=== PATIENT | female | born 1940 | race Caucasian/White ===

== ENCOUNTER 2016-12-08 14:36 | Emergency (ER) | payer MEDICARE ==
--- NOTE | 2016-12-08 14:47 | ER Document Report ---
ED Medical Screen (RME) - General Stated Complaint: STIFF NECK Notes: patient has a history or RA with intermittent episodes of neck pain she has had this exacerbation for 5 days no fever. I greeted and performed a rapid initial assessment of this patient. Comprehensive ED assessment and evaluation of the patient, analysis of test results and completion of the medical decision making process will be conducted by additional ED providers. TRAVEL OUTSIDE OF THE [place] IN LAST 30 DAYS: No - Related Data Allergies/Adverse Reactions: Penicillins Allergy (Intermediate, Verified 11/05/12 06:55) vancomycin [Vancomycin] Allergy (Intermediate, Verified 11/05/12 06:56) vancomycin HCl [From Vancocin] Allergy (Intermediate, Verified 11/05/12 06:56) Past Medical History - Past Medical History Cardiac Medical History: Reports: Hx Hypertension Denies: Hx Coronary Artery Disease, Hx Heart Attack Pulmonary Medical History: Reports: Hx Pneumonia - currently dx Denies: Hx Asthma, Hx Bronchitis, Hx COPD Neurological Medical History: Denies: Hx Cerebrovascular Accident, Hx Seizures Musculoskeltal Medical History: Reports Hx Arthritis - mild throughout Past Surgical History: Denies: Hx Hysterectomy, Hx Pacemaker - Immunizations Hx Diphtheria, Pertussis, Tetanus Vaccination: Yes Physical Exam - Vital signs Vitals: Temp Pulse Resp BP Pulse Ox 98.3 F 88 20 149/73 H 97 12/08/16 14:44 12/08/16 14:44 12/08/16 14:44 12/08/16 14:44 12/08/16 14:44 Course - Vital Signs Vital signs: Temp Pulse Resp BP Pulse Ox 98.3 F 88 20 149/73 H 97 12/08/16 14:44 12/08/16 14:44 12/08/16 14:44 12/08/16 14:44 12/08/16 14:44
[2016-12-08] MEDS ORDERED: KETOROLAC TROMETHAMINE 60 MG/2 ML SDV IM ONE (15:27)
--- NOTE | 2016-12-08 15:33 | ER Document Report ---
ED General - General Chief Complaint: Stiff Neck Stated Complaint: STIFF NECK Time seen by provider: 15:27 Mode of Arrival: Ambulatory Information source: Patient Notes: This is a 76-year-old female with a history of hypertension, hypothyroidism, reactive airway disease, lung cancer (on chemotherapy, in remission). Patient does have a history of osteoporosis as well as chronic neck and back pain and has had surgery on her lower back. Patient presents to the emergency room with upper neck pain and spasm. The patient has been seen by an orthopedic surgeon for this in the past and has recently had physical therapy this past fall. She states the pain and spasm has increased in the last few days. She denies any recent injury. She denies any weakness to the upper extremities, she denies any numbness to the extremities. TRAVEL OUTSIDE OF THE [place] IN LAST 30 DAYS: No - HPI Onset: Last week Onset/Duration: Gradual Quality of pain: Dull Severity: Moderate Pain Level: 3 Associated symptoms: denies: Chills, Nonproductive cough, Productive cough, Fever, Shortness of breath Exacerbated by: Movement Relieved by: Remaining still Similar symptoms previously: Yes Recently seen / treated by doctor: Yes - Related Data Allergies/Adverse Reactions: Penicillins Allergy (Intermediate, Verified 12/08/16 14:47) vancomycin [Vancomycin] Allergy (Intermediate, Verified 12/08/16 14:47) vancomycin HCl [From Vancocin] Allergy (Intermediate, Verified 12/08/16 14:47) Past Medical History - General Information source: Patient - Social History Smoking Status: Former Smoker Cigarette use (# per day): No Chew tobacco use (# tins/day): No Frequency of alcohol use: None Drug Abuse: None Lives with: Family Family History: Reviewed & Not Pertinent Patient has suicidal ideation: No Patient has homicidal ideation: No - Past Medical History Cardiac Medical History: Reports: Hx Hypertension Denies: Hx Coronary Artery Disease, Hx Heart Attack Pulmonary Medical History: Reports: Hx Pneumonia - currently dx Denies: Hx Asthma, Hx Bronchitis, Hx COPD Neurological Medical History: Denies: Hx Cerebrovascular Accident, Hx Seizures Renal/ Medical History: Denies: Hx Peritoneal Dialysis Musculoskeltal Medical History: Reports Hx Arthritis - mild throughout Past Surgical History: Denies: Hx Hysterectomy, Hx Pacemaker - Immunizations Hx Diphtheria, Pertussis, Tetanus Vaccination: Yes Review of Systems - Review of Systems Constitutional: denies: Chills, Fever EENT: No symptoms reported Cardiovascular: No symptoms reported Respiratory: No symptoms reported Gastrointestinal: No symptoms reported Genitourinary: No symptoms reported Female Genitourinary: No symptoms reported Musculoskeletal: See HPI Skin: No symptoms reported Hematologic/Lymphatic: No symptoms reported Neurological/Psychological: No symptoms reported Physical Exam - Vital signs Vitals: Temp Pulse Resp BP Pulse Ox 98.3 F 88 20 149/73 H 97 12/08/16 14:44 12/08/16 14:44 12/08/16 14:44 12/08/16 14:44 12/08/16 14:44 Notes: Physical exam: GENERAL: 76-year-old female, alert and oriented 3, is complaining of stiffness in muscle spasm in the back of the neck. HEAD: Atraumatic, normocephalic. EYES: Pupils equal round and reactive to light, extraocular movements intact, sclera anicteric, conjunctiva are normal. ENT: TMs normal, nares patent, oropharynx clear without exudates. Moist mucous membranes. NECK: Patient has reduced range of motion secondary to pain, she does have paraspinal muscle tenderness in the back more on the left side, there is no skin changes, masses or lesions. LUNGS: Breath sounds clear to auscultation bilaterally and equal. No wheezes rales or rhonchi. HEART: Regular rate and rhythm without murmurs, rubs or gallops. ABDOMEN: Soft, nontender, normoactive bowel sounds. No guarding, no rebound. No masses appreciated. EXTREMITIES: Normal range of motion, no pitting or edema. No clubbing or cyanosis. NEUROLOGICAL: Cranial nerves II through XII grossly intact. Normal speech, upper extremity strength is good, lower motor is good, sensory is grossly intact , cerebellar is grossly intact. PSYCH: Normal mood, normal affect. SKIN: Warm, Dry, normal turgor, no rashes or lesions noted. Course - Re-evaluation Re-evalutation: 12/08/16 15:29 I've had a long conversation with the patient, she's had exacerbations of neck pain before. She does have an orthopedic surgeon that she's can be following up with this week. She does state she needs some pain relief and muscle relaxer until that time. I will give her some Vicodin and Robaxin. I will give her a shot of Toradol in the ER. I've advised her to take Aleve with food as well. The patient prefers not to have steroids at this time, but I will give her prescription for Medrol Dosepak if she doesn't get relief from the above treatment. I've advised that she will probably need another MRI should the neck pain persists. I've advised her to come back if she gets any motor weakness or sensory loss. 12/08/16 15:30 - Vital Signs Vital signs: Temp Pulse Resp BP Pulse Ox 100.2 F 79 18 151/89 H 90 L 12/08/16 15:49 12/08/16 15:49 12/08/16 15:49 12/08/16 15:49 12/08/16 15:49 Discharge - Discharge Clinical Impression: exacerbation of neck pain Condition: Stable Disposition: HOME, SELF-CARE Instructions: Oral Narcotic Medication ([facility]) Additional Instructions: Recommendations: Take the Warriormine as prescribed: See the narcotic instruction sheet. Take the Robaxin for muscle relaxation: Make sure you're at home for the first dose to see if you get any sedative effects from it. Usually, this medicine is nonsedating. You can also take an Aleve for the pain: This is an anti-inflammatory. If the above medicines do not help, then you can take the Medrol Dosepak. This is a steroid that we have talked about. If you do start taking the Medrol Dosepak, I would like him not to take Aleve/Motrin/ibuprofen while taking this medicine (they are both doing the same thing in taking both at the same time we' ll not in any benefit but may upset her stomach). Follow-up with your surgeon in the next week or 2: You may require another MRI. Continue with the heat pads as we discussed. Return to the emergency room for worsening pain, worsening spasm, weakness to the upper extremities or any changes in sensation. Prescriptions: Hydrocodone/Acetaminophen [Warriormine 5-325 mg Tablet] 1 tab PO Q6HP PRN #30 tablet PRN Reason: Methocarbamol [Robaxin 500 mg Tablet] 500 mg PO BID #20 tablet Methylprednisolone [Medrol 4 mg Dosepack 21 Tab/Pack] 4 mg PO ASDIR PRN #21 tab.ds.pk PRN Reason: Referrals: [Primary Care Provider] - Follow up as needed
[2016-12-08 16:04] VITALS: BP 151/89
== END 2016-12-08 16:04 | disposition home or self-care (01) ==
LOC: ER 14:36
DX: M54.2 Cervicalgia (principal); M43.6 Torticollis; E03.9 Hypothyroidism, unspecified; J45.909 Unspecified asthma, uncomplicated; Z87.891 Personal history of nicotine dependence
CPT/HCPCS: 99283; 96372; J1885

== ENCOUNTER → 2017-01-17 | Outpatient (CLI) | payer MEDICARE, OTHER | LOC: OD 11:15 | PROVIDERS: ATTEND Internal Medicine Medical Oncology | DX: C34.90 Malignant neoplasm of unspecified part of unspecified bronchus or lung (principal) | CPT/HCPCS: 71020 ==

== ENCOUNTER 2017-04-30 09:00 | Day surgery (SDC) | payer MEDICARE, MEDICAID ==
[~2017-04-30 09:00] MED LIST: CHONDR SU A NA/HYALUR INTRAOC KIT (SURGICARE) ONE; EPINEPHRINE INJ/PF 1 MG/1 ML AMPULE ONE; KETOROLAC TROMETHAMINE 0.45% 4 DROP/0.4 ML DROPERETTE OD PRN; LIDOCAINE 1% INJ-PF (10 MG/ML) 30 ML SDV ONE; TOBRAMYCIN SULFATE/DEXAMETH OPH OINTMENT 3.5 GM ONE
[2017-04-30] MEDS: TETRACAINE HCL 0.5% OPH SOLN 0.6 ML DROPERETTE OD PRN ×3 (09:32→10:07)
[2017-04-30] MEDS: TROPICAMIDE 1% OPH SOLN 3 ML OD PRN ×3 (09:33→09:58)
[2017-04-30] MEDS: CYCLOPENTOLATE 0.2%/PHENYLEPHRINE 1% OPH SOLN 2 ML OD PRN ×3 (09:33→09:58)
[2017-04-30] MEDS: BESIFLOXACIN HCL 0.6% OPH SUSP 5 ML BOTTLE OD PRN ×3 (09:34→10:24)
[2017-04-30] MEDS ORDERED: MIDAZOLAM 2 MG/2 ML INJ ONE ×2 (09:43→10:11)
[2017-04-30] MEDS ORDERED: FENTANYL CITRATE INJ/PF 100 MCG/2 ML AMPUL ONE (09:43)
== END 2017-04-30 11:25 | disposition home or self-care (01) ==
LOC: SC 09:00
PROVIDERS: ATTEND Ophthalmology
PROC: 08RJ3JZ Replacement of Right Lens with Synthetic Substitute, Percutaneous Approach (ICD-10-PCS; principal; 2017-04-30 10:00)
DX: H25.11 Age-related nuclear cataract, right eye (principal); M19.90 Unspecified osteoarthritis, unspecified site; J45.909 Unspecified asthma, uncomplicated; I10 Essential (primary) hypertension; E03.9 Hypothyroidism, unspecified; Z79.82 Long term (current) use of aspirin; Z79.899 Other long term (current) drug therapy; Z88.0 Allergy status to penicillin; Z88.1 Allergy status to other antibiotic agents; Z79.1 Long term (current) use of non-steroidal anti-inflammatories (NSAID); Z87.891 Personal history of nicotine dependence; Z85.118 Personal history of other malignant neoplasm of bronchus and lung
CPT/HCPCS: 66984; V2630; J2250; J3490 ×3; A9270; J0171; J3010; 142

== ENCOUNTER 2017-05-21 08:44 | Day surgery (SDC) | payer MEDICARE, MEDICAID ==
[~2017-05-21 08:44] MED LIST changes: -KETOROLAC TROMETHAMINE 0.45% 4 DROP/0.4 ML DROPERETTE OD PRN; +KETOROLAC TROMETHAMINE 0.45% 4 DROP/0.4 ML DROPERETTE OS PRN
[2017-05-21] MEDS: CYCLOPENTOLATE 0.2%/PHENYLEPHRINE 1% OPH SOLN 2 ML OS PRN ×3 (09:19→09:39)
[2017-05-21] MEDS: BESIFLOXACIN HCL 0.6% OPH SUSP 5 ML BOTTLE OS PRN ×3 (09:19→10:12)
[2017-05-21] MEDS: TROPICAMIDE 1% OPH SOLN 3 ML OS PRN ×3 (09:19→09:39)
[2017-05-21] MEDS: TETRACAINE HCL 0.5% OPH SOLN 0.6 ML DROPERETTE OS PRN ×3 (09:20→09:52)
[2017-05-21] MEDS ORDERED: ALBUTEROL SULFATE 0.083% NEB 2.5 MG/3 ML AMPUL NEB ONE (09:21)
[2017-05-21] MEDS ORDERED: MIDAZOLAM 2 MG/2 ML INJ ONE (09:56)
== END 2017-05-21 10:59 | disposition home or self-care (01) ==
LOC: SC 08:44
PROVIDERS: ATTEND Ophthalmology
PROC: 08RK3JZ Replacement of Left Lens with Synthetic Substitute, Percutaneous Approach (ICD-10-PCS; principal; 2017-05-21 09:45)
DX: H25.12 Age-related nuclear cataract, left eye (principal); Z96.1 Presence of intraocular lens; M19.90 Unspecified osteoarthritis, unspecified site; J45.909 Unspecified asthma, uncomplicated; K21.9 Gastro-esophageal reflux disease without esophagitis; I10 Essential (primary) hypertension; E03.9 Hypothyroidism, unspecified; Z79.82 Long term (current) use of aspirin; Z79.899 Other long term (current) drug therapy; Z87.891 Personal history of nicotine dependence; Z88.0 Allergy status to penicillin; Z88.1 Allergy status to other antibiotic agents; Z85.118 Personal history of other malignant neoplasm of bronchus and lung; Z99.81 Dependence on supplemental oxygen; Z79.1 Long term (current) use of non-steroidal anti-inflammatories (NSAID); Z79.51 Long term (current) use of inhaled steroids
CPT/HCPCS: 66984; V2630; J2250; J3490 ×3; A9270 ×2; J0171; 142

== ENCOUNTER → 2017-07-07 | Outpatient (CLI) | payer MEDICARE, MEDICAID ==
--- NOTE | 2017-07-07 11:00 | RADIOLOGY REPORT (SQ) ---
EXAM DESCRIPTION: CT CHEST WITH COMPLETED DATE/TIME: 07/07/2017 10:04 am REASON FOR STUDY: MAL JAZZ OF UNSPECIFIED PART OF UNSPECIFIED BRONCHUS OR LUNG C34.90 MALIGNANT NEOP LASM OF UNSP PART OF UNSP BRONCHUS OR L COMPARISON: 10/03/2015 TECHNIQUE: CT scan of the chest performed using helical scanning technique with dynamic intravenous contrast injection. Images reviewed with lung, soft tissue and bone windows. Reconstructed coronal and sagittal MPR images reviewed. All images stored on PACS. All CT scanners at this facility use dose modulation, iterative reconstruction, and/or weight based d osing when appropriate to reduce radiation dose to as low as reasonably achievable (ALARA). [facility]: Dose Right [facility]: CareDose [facility]: Dose Right [facility]: Teradose 4D [facility]: [employer] CONTRAST TYPE AND DOSE: contrast/concentration: Isovue 370.00 mg/ml; Total Contrast Delivered: 80.0 ml; Total Saline Delivered: 55.0 ml RENAL FUNCTION: BUN 27 creatinine 1.1 RADIATION DOSE: Up-to-date CT equipment and radiation dose reduction techniques were employed. CTDIv ol: 6.4 mGy. DLP: 231 mGy-cm. . LIMITATIONS: None. FINDINGS: LUNGS AND PLEURA: Segmental airspace disease in the basilar segment of right upper lobe rodriguez s been stable since 2016 when it was not hypermetabolic. COPD and subsegmental areas of honeycombing in the lower lobes and the lingula has progressed in the left lung. Some coalescing nodules in the left lung and right lower lobe measuring up to just over 1 cm. HILAR AND MEDIASTINAL STRUCTURES: No identified masses or abnormal nodes. HEART AND VASCULAR STRUCTURES: No aneurysm or dissection. No central pulmonary emboli. No pericardi al effusion. HARDWARE: None in the chest. UPPER ABDOMEN: See separate report of the CT of the abdomen. THYROID AND OTHER SOFT TISSUES: Stable left thyroid nodule. BONES: No acute findings. OTHER: No other significant finding. IMPRESSION: Chronic right upper lobe airspace disease. Interval progression of pulmonary fibrosis. There are some coalescing nodules in the lower lobes which may be related to fibrosis. However cons ider follow-up PET or closer chest CT followup to assess stability. Correlation with pulmonary funct ion tests may be of benefit. TECHNICAL DOCUMENTATION: JOB ID: [id number] Quality ID # [id number]: Final reports with documentation of one or more dose reduction techniques (e.g., Au tomated exposure control, adjustment of the mA and/or kV according to patient size, use of iterative reconstruction technique) 2010 [employer]- All Rights Reserved
== END ==
LOC: RAD 09:11
PROVIDERS: ATTEND Internal Medicine Medical Oncology
DX: C34.90 Malignant neoplasm of unspecified part of unspecified bronchus or lung (principal)
CPT/HCPCS: 71260

== ENCOUNTER → 2017-09-16 | Outpatient (CLI) | payer MEDICARE, MEDICAID ==
--- NOTE | 2017-09-17 13:31 | RADIOLOGY REPORT (SQ) ---
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 TECHNIQUE: Blood glucose level was verified. Above dose of FDG was injected intravenously. 2-D seg mented attenuation correction images were obtained from the base of the skull to the midthighs. Nonc ontrast CT images were obtained for attenuation correction and fusion with emission images. CT image s were performed without oral or intravenous contrast and are not sensitive for parenchymal lesions. A series of overlapping emission PET images were obtained. Images reviewed and manipulated at [facility] work station by the radiologist. Images stored on PACS. LIMITATIONS: None. FINDINGS: HEAD AND NECK: No areas of abnormal metabolic activity in the soft tissues of the head and neck. CHEST: Multifocal alveolar infiltrates are present, with low level FDG uptake similar to and slightly more intense than and liver background activity. These infiltrates are more dense than on the prior 8 PET-CT 07/14/2016, and have a similar appearance as compared to 09/22/2015 and 01/24/2013. SUV range s from 2.1 to 3.1, and findings are worrisome for recurrent bronchoalveolar malignancy. There are no pleural effusions. No worrisome discrete pulmonary nodules. Underlying obstructive dis ease is present. No hilar or mediastinal adenopathy. ABDOMEN AND PELVIS: No areas of abnormal metabolic activity in the abdomen or pelvis. Expected physi ologic activity is present in the genitourinary system and bowel. PROXIMAL LOWER EXTREMITIES: No areas of abnormal metabolic activity in the soft tissues of the lower extremities. BONES: No abnormal metabolic activity in the visualized skeleton. ADDITIONAL CT FINDINGS: Degenerative changes lumbar spine. OTHER: Liver background activity 2.6 SUV. Blood pool background activity 1.8 SUV IMPRESSION: Increase in multifocal lung consolidation density, with increase in metabolic activity o n PET-CT. This is similar compared to 09/22/2015 and 01/24/2013, worrisome for recurrent bronchoalveol ar malignancy TECHNICAL DOCUMENTATION: JOB ID: [id number] [employer]- All Rights Reserved
== END ==
LOC: RAD 14:54
PROVIDERS: ATTEND Internal Medicine Medical Oncology
DX: C34.90 Malignant neoplasm of unspecified part of unspecified bronchus or lung (principal)
CPT/HCPCS: 78815; A9552

== ENCOUNTER → 2018-02-01 | Outpatient (CLI) | payer MEDICARE, MEDICAID ==
--- NOTE | 2018-02-02 09:15 | RADIOLOGY REPORT (SQ) ---
EXAM DESCRIPTION: PET CT SKULL/THIGH COMPLETED DATE/TIME: 02/01/2018 6:30 pm REASON FOR STUDY: BRONCHOALVEOLAR C34.90 MALIGNANT NEOPLASM OF UNSP PART OF UNSP BRONCHUS OR L COMPARISON: 09/16/2017 and 07/14/2016. RADIONUCLIDE AND DOSE: 10.0 mCi F18 FDG The route of agent administration: Intravenous FASTING BLOOD SUGAR: 116 mg/dl CONTRAST TYPE AND DOSE: No CT contrast given. TECHNIQUE: Blood glucose level was verified. Above dose of FDG was injected intravenously. 2-D seg mented attenuation correction images were obtained from the base of the skull to the midthighs. Nonc ontrast CT images were obtained for attenuation correction and fusion with emission images. CT image s were performed without oral or intravenous contrast and are not sensitive for parenchymal lesions. A series of overlapping emission PET images were obtained. Images reviewed and manipulated at [facility] work station by the radiologist. Images stored on PACS. LIMITATIONS: None. FINDINGS: HEAD AND NECK: No areas of abnormal metabolic activity in the soft tissues of the head and neck. Areas of activity in the vocal cords, tongue, and pterygoid muscles consistent with muscular activity. CHEST: Chronic dense consolidation/scar in the posterior right upper lobe is unchanged. No unusual m etabolic activity associated with this chronic finding. Previously seen scattered areas of alveolar density throughout both lungs have generally improved on CT imaging with less extensive involvement. SUV values generally less than 2 with a few areas measuring 2.25 and 2.34. No suspicious hilar or m ediastinal adenopathy. ABDOMEN AND PELVIS: No areas of abnormal metabolic activity in the abdomen or pelvis. Expected physi ologic activity is present in the genitourinary system and bowel. PROXIMAL LOWER EXTREMITIES: No areas of abnormal metabolic activity in the soft tissues of the lower extremities. BONES: No abnormal metabolic activity in the visualized skeleton. ADDITIONAL CT FINDINGS: Surgical changes in the lumbar spine. No additional significant findings on the noncontrast CT images. OTHER: Background blood pool activity mean SUV value 1.8. Background liver activity mean SUV value 2 .43. IMPRESSION: PREVIOUSLY SEEN ALVEOLAR DENSITIES SCATTERED THROUGHOUT BOTH LUNGS HAVE IMPROVED ON CT S CAN. AREAS OF ACTIVITY DESCRIBED ABOVE, SIMILAR TO THE PRIOR STUDY. NO SUSPICIOUS HILAR OR MEDIA STINAL ADENOPATHY. REMAINDER OF THE PET SCAN IS OTHERWISE UNREMARKABLE. CHRONIC FINDINGS ABOVE. TECHNICAL DOCUMENTATION: JOB ID: [id number]- All Rights Reserved Reading location - IP/workstation name: [email or web address]
== END ==
LOC: RAD 15:23
PROVIDERS: ATTEND Internal Medicine Medical Oncology
DX: C34.91 Malignant neoplasm of unspecified part of right bronchus or lung (principal); C34.92 Malignant neoplasm of unspecified part of left bronchus or lung
CPT/HCPCS: 78815; A9552

== ENCOUNTER 2018-02-09 09:06 | Day surgery (SDC) | payer MEDICARE, MEDICAID ==
[~2018-02-09 09:06] MED LIST changes: -CHONDR SU A NA/HYALUR INTRAOC KIT (SURGICARE) ONE; -EPINEPHRINE INJ/PF 1 MG/1 ML AMPULE ONE; -KETOROLAC TROMETHAMINE 0.45% 4 DROP/0.4 ML DROPERETTE OS PRN; -LIDOCAINE 1% INJ-PF (10 MG/ML) 30 ML SDV ONE; +PROPOFOL INJ 200 MG/20 ML VIAL IV ONE; -TOBRAMYCIN SULFATE/DEXAMETH OPH OINTMENT 3.5 GM ONE
[2018-02-09] MEDS ORDERED: SIMETHICONE 80 MG TAB.CHEW ONE (10:04)
--- NOTE | 2018-02-09 11:49 | Operative Report ---
Operative Report DATE OF SURGERY: 02/09/18 Operative Report: The risks benefits and alternatives of the procedure explained to the patient in detail and informed consent is obtained.A GIF Olympus video scope was inserted into the patient's mouth and hypopharynx, the esophagus is identified intubated and insufflated, the scope was then advanced through the esophagus stomach and duodenum, retroflexion maneuver is done, the esophagus stomach and first and second portions of the duodenum examined PREOPERATIVE DIAGNOSIS: Epigastric pain rule out peptic ulcer disease POSTOPERATIVE DIAGNOSIS: Gastritis status post biopsy rule out Helicobacter pylori OPERATION: EGD with biopsy SURGEON: NATALY REZA ANESTHESIA: LMAC TISSUE REMOVED OR ALTERED: As noted above. COMPLICATIONS: None. ESTIMATED BLOOD LOSS: None. INTRAOPERATIVE FINDINGS: As noted above. PROCEDURE: Patient tolerated procedure well. No immediate postprocedure complications are noted. Patient discharged in good condition. Discharge date 02/09/2018 Discharge diet: Regular. Discharge activity: Regular. 2-3 week follow-up to discuss findings. Patient is instructed call the office or proceed to the emergency room should there be any further problems or questions. We will wait on pathology.
[2018-02-09 11:56] VITALS: BP 108/64
== END 2018-02-09 10:24 | disposition home or self-care (01) ==
LOC: END 09:06
PROVIDERS: ATTEND Internal Medicine Gastroenterology
DX: K29.70 Gastritis, unspecified, without bleeding (principal); K21.9 Gastro-esophageal reflux disease without esophagitis; J45.909 Unspecified asthma, uncomplicated; I10 Essential (primary) hypertension; C34.90 Malignant neoplasm of unspecified part of unspecified bronchus or lung; E07.9 Disorder of thyroid, unspecified; Z87.891 Personal history of nicotine dependence; Z88.0 Allergy status to penicillin; Z88.1 Allergy status to other antibiotic agents
CPT/HCPCS: 43239; 88305 ×2; A9270; J2704; 731

== ENCOUNTER → 2018-04-13 | Outpatient (CLI) | payer MEDICARE, MEDICAID ==
--- NOTE | 2018-04-13 10:08 | RADIOLOGY REPORT (SQ) ---
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 Images reviewed with lung, soft tissue and bone windows. Reconstructed coronal a nd sagittal MPR images reviewed. All images stored on PACS. CT scan of the abdomen performed with intravenous and without oral contrastusing helical scanning avery hnique with dynamic intravenous contrast injection. Images reviewed with lung, soft tissue and bone windows. Reconstructed coronal and sagittal MPR images reviewed. Delayed images for evaluation of t he urinary system also acquired and evaluated. All images stored on PACS. All CT scanners at this facility use dose modulation, iterative reconstruction, and/or weight based d osing when appropriate to reduce radiation dose to as low as reasonably achievable (ALARA). [facility]: Dose Right [facility]: CareDose [facility]: Dose Right [facility]: Teradose 4D [facility]: [employer] RADIATION DOSE: CT Rad equipment meets quality standard of care and radiation dose reduction techniq ues were employed. CTDIvol: 4.8 - 6.2 mGy. DLP: 543 mGy-cm. . LIMITATIONS: None. FINDINGS: CHEST: LUNGS AND PLEURA: An 8 x 3 cm area of dense consolidation is present in the posterior right upper lob e on axial images 33-40. This is compatible with the patient's diagnosis of bronchoalveolar carcinom a and is unchanged compared to PET-CT 02/01/2018, PET-CT 09/16/2017, chest CT 07/07/2017. This area of consolidation was 6 x 2 cm on 07/14/2016. There is mixed alveolar and interstitial consolidation in the lateral aspect right middle lobe, throu ghout the medial aspect right lower lobe and in the posterior aspect of the lingula. These areas of consolidation are unchanged from PET-CT 02/01/2018, 09/16/[address] chest 07/07/2017. However, all o f these areas have progressed compared to PET-CT 07/14/2016. No pleural effusions. No pneumothorax. Stable underlying advanced changes of obstructive lung disease. HILAR AND MEDIASTINAL STRUCTURES: No identified masses or abnormal nodes. HEART AND VASCULAR STRUCTURES: No aneurysm or dissection. No central pulmonary emboli. No pericardi al effusion. HARDWARE: None. THYROID AND OTHER SOFT TISSUES: No masses. No adenopathy. BONES: No significant finding. OTHER: No other significant finding. ABDOMEN AND PELVIS: LIVER: Normal size. No masses. No dilated ducts. Diffuse low attenuation from fatty infiltration SPLEEN: Normal size. No focal lesions. PANCREAS: No masses. No significant calcifications. No adjacent inflammation or peripancreatic fluid collections. Pancreatic duct not dilated. GALLBLADDER: No identified stones by CT criteria. No inflammatory changes to suggest cholecystitis. ADRENAL GLANDS: No significant masses or asymmetry. RIGHT KIDNEY AND URETER: No solid masses. No significant calcification. No hydronephrosis or hydroure ter. LEFT KIDNEY AND URETER: No solid masses. No significant calcification. No hydronephrosis or hydrouret er. AORTA AND VESSELS: No aneurysm. No dissection. Renal arteries, SMA, celiac without stenosis. RETROPERITONEUM: No retroperitoneal adenopathy, hemorrhage or masses. BOWEL AND PERITONEAL CAVITY: No masses or inflammatory changes. No free fluid or peritoneal masses. APPENDIX: Not in the field of view ABDOMINAL WALL: No masses. No hernias. PELVIS: Not examined BONES: Extensive degenerative disc changes with multilevel bilateral laminectomy OTHER: No other significant finding. IMPRESSION: Stable disease compared to 2017 in the chest. There is progression of disease compared to studies from 2016 in the chest. No CT evidence of metastatic disease to the abdomen given history of lung cancer NORMAL CT OF THE ABDOMEN AND PELVIS WITH ORAL AND INTRAVENOUS CONTRAST. TECHNICAL DOCUMENTATION: JOB ID: [id number] Quality ID # [id number]: Final reports with documentation of one or more dose reduction techniques (e.g., Au tomated exposure control, adjustment of the mA and/or kV according to patient size, use of iterative reconstruction technique) 2010 [employer]- All Rights Reserved Reading location - IP/workstation name: [email or web address]
== END ==
LOC: RAD 08:07
PROVIDERS: ATTEND Internal Medicine Medical Oncology
DX: C34.11 Malignant neoplasm of upper lobe, right bronchus or lung (principal)
CPT/HCPCS: 71260; 74160

== ENCOUNTER → 2018-05-26 | Outpatient (CLI) | payer MEDICARE, MEDICAID ==
--- NOTE | 2018-05-26 13:28 | EKG REPORT ---
SEVERITY:- BORDERLINE ECG - SINUS RHYTHM BORDERLINE T ABNORMALITIES, INFERIOR LEADS : Confirmed by: Rajendra Sparks MD 26-May-2018 13:27:09
--- NOTE | 2018-05-26 19:46 | XCELERA REPORT ---
[address] [address] Transthoracic Echocardiogram Report Name: ABDIAZIZ BULLARD Age: 78 yrs Gender: Female : 1940 Patient Status: Outpatient Patient Location: Study Date: 05/26/2018 09:22 AM Height: 60 in Weight: 143 lb BSA: 1.6 m2 Reason For Study: SHORTNESS OF BREATH Ordering Physician: JOE SIM Performed By: Elizabeth Leong Interpretation Summary Moderate TR with mild RA enlargement , RVSP 62 mm Hg, RAP 8 mm Hg, moderate Pulm HTN>. tNo signif post pericardial effusion. Mild calcified ao root, not enlarged. Mild AV sclerosis with 3 cusps, min PPG 14mm Hg. No AR. Mild mitral annular calcification, no MS no MVP, trace MR mild LA enlargement. No LVH, Normal LVEF 65-70% with stage I LV diastolic dysfunction, no LV enlargement, and no segmental regional wall motion abnormality. No ASD. MMode/2D Measurements & Calculations RVDd: 3.2 cm LVIDd: 4.5 cm FS: 42.2 % Ao root diam: 2.7 cm IVSd: 0.84 cm LVIDs: 2.6 cm EDV(Teich): 93.7 ml LVPWd: 0.85 cm ESV(Teich): 24.9 ml Ao root area: 5.7 cm2 EF(Teich): 73.4 % LA dimension: 3.8 cm Doppler Measurements & Calculations MV E max radha: MV P1/2t max radha: Ao V2 max: LV V1 max P.1 cm/sec 69.6 cm/sec 183.9 cm/sec 8.8 mmHg MV A max ardha: MV P1/2t: 79.0 msec Ao max PG: LV V1 max: 94.8 cm/sec 13.5 mmHg 148.6 cm/sec MV E/A: 0.73 MVA(P1/2t): 2.8 cm2 MV dec slope: 257.9 cm/sec2 MV dec time: 0.26 sec PA V2 max: TR max radha: 90.3 cm/sec 366.5 cm/sec PA max PG: TR max P.7 mmHg 3.3 mmHg Left Ventricle The left ventricle is normal in size, thickness and function. The left ventricular ejection fraction is normal. Doppler measurements suggest impaired left ventricular relaxation, which is associated with grade I/IV or mild diastolic dysfunction. No regional wall motion abnormalities noted. There is no thrombus. Right Ventricle The right ventricle is mildly dilated. The right ventricular systolic function is normal. TAPSE 22mm. Atria Borderline right atrial enlargement. The left atrial size is normal. The interatrial septum is intact with no evidence for an atrial septal defect. Mitral Valve There is mild mitral annular calcification. The mitral valve is grossly normal. There is no evidence of mitral valve prolapse. There is no mitral valve stenosis. There is a trace amount of mitral regurgitation. Aortic Valve The aortic valve opens well. The aortic valve is calcified. There is no aortic valvular vegetation. There is no aortic valve stenosis. No aortic regurgitation is present. Tricuspid Valve There is a moderate amount of tricuspid regurgitation. Great Vessels There is aortic root sclerosis/calcification. The aortic root is normal size. Effusions There is no pericardial effusion. I WMSI = 1.00 % Normal = 100 Segments Size X - Cannot 2 - 4 - 1-2 small Interpret 1 - Normal Hypokinetic 3 - AkineticDyskinetic 3-5 moderate 5 - 6-14 large Aneurysmal 15-16 diffuse : JOE SIM > Rajendra Sparks
== END ==
LOC: SP 08:49
PROVIDERS: ATTEND Internal Medicine Medical Oncology
DX: C34.90 Malignant neoplasm of unspecified part of unspecified bronchus or lung (principal); R06.02 Shortness of breath
CPT/HCPCS: 93005; 93010; 93306

== ENCOUNTER → 2018-07-13 | Outpatient (CLI) | payer MEDICARE, MEDICAID ==
--- NOTE | 2018-07-13 14:20 | WOMENS IMAGING REPORT ---
EXAM DESCRIPTION: BONE DENSITY HIP/SPINE COMPLETED DATE/TIME: 07/13/2018 1:59 pm REASON FOR STUDY: ASYMPTOMATIC MENOPAUSAL STATE Z78.0 ASYMPTOMATIC MENOPAUSAL STATE COMPARISON: None. TECHNIQUE: Dual-Energy X-ray Absorptiometry (DEXA) of the AP Spine, Hip, and Forearm. LIMITATIONS: None. FINDINGS: HIP: The bone mineral density (BMD) measured in the left hip correlates with a T-score of -1.4 in the femo ral neck, which is osteopenia as defined by the World Health Organization. FOREARM: The bone mineral density (BMD) measured in the left forearm correlates with a T-score of -3.5 which i s osteoporosis as defined by the World Health Organization. IMPRESSION: 1. LUMBAR SPINE: Not examined. 2. HIP: Osteopenia 3. FOREARM: Osteoporosis COMMENT: 10 year risk of major osteoporotic fracture 19%. 10 year risk of hip fracture 3.8%. The World Health Organization defines low BMD as follows: T-score: Normal: Greater than -1.0 Osteopenia: Between -1.0 and -2.5 Osteoporosis: Less than -2.5 without fractures Established osteoporosis: Less than -2.5 with fractures In general, you may wish to consider: Diagnosis Treatment Follow-up DEXA Normal BMD Prevention 2-3 years Osteopenia Prevention/Therapy 1-2 years Osteoporosis Therapy Yearly TECHNICAL DOCUMENTATION: JOB ID: [id number] [employer]- All Rights Reserved Reading location - IP/workstation name: [email or web address]
== END ==
LOC: WI 13:26
PROVIDERS: ATTEND Internal Medicine
DX: M81.0 Age-related osteoporosis without current pathological fracture (principal); Z78.0 Asymptomatic menopausal state
CPT/HCPCS: 77080

== ENCOUNTER → 2018-08-21 | Outpatient (CLI) | payer MEDICARE, MEDICAID ==
--- NOTE | 2018-08-21 11:10 | RADIOLOGY REPORT (SQ) ---
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 Images reviewed with lung, soft tissue and bone windows. Reconstructed coronal and sagittal MPR and MIP images reviewed. All images stored on PACS. All CT scanners at this facility use dose modulation, iterative reconstruction, and/or weight based d osing when appropriate to reduce radiation dose to as low as reasonably achievable (ALARA). [facility]: Dose Right [facility]: CareDose [facility]: Dose Right [facility]: Teradose 4D [facility]: TabSys CONTRAST TYPE AND DOSE: 71 mL Isovue 370- low osmolar. RENAL FUNCTION: Creatinine 1.2 RADIATION DOSE: CT Rad equipment meets quality standard of care and radiation dose reduction techniq ues were employed. CTDIvol: 4.8 - 5.4 mGy. DLP: 517 mGy-cm. . LIMITATIONS: None. FINDINGS: LUNGS AND PLEURA: There chronic bilateral pleural and parenchymal changes. There are bila teral emphysematous changes. Scarring in the right upper lobe and along the mediastinum posteriorly in the right base is stable. There is persistent airspace disease in the left lower lobe and left up per lobe again which appears chronic. No new findings. No discrete pulmonary nodules. HILAR AND MEDIASTINAL STRUCTURES: No identified masses or abnormal nodes. HEART AND VASCULAR STRUCTURES: No aneurysm or dissection. No central pulmonary emboli. No pericardi al effusion. HARDWARE: None in the chest. UPPER ABDOMEN: No significant findings. Limited exam. THYROID AND OTHER SOFT TISSUES: No masses. No adenopathy. BONES: No significant finding. OTHER: No other significant finding. IMPRESSION: Stable CT of the chest with chronic bilateral pleural and parenchymal changes. No new f indings when compared to 04/13/2018. TECHNICAL DOCUMENTATION: JOB ID: [id number] Quality ID # [id number]: Final reports with documentation of one or more dose reduction techniques (e.g., Au tomated exposure control, adjustment of the mA and/or kV according to patient size, use of iterative reconstruction technique) 2010 [employer]- All Rights Reserved Reading location - IP/workstation name: [email or web address]
--- NOTE | 2018-08-21 11:12 | RADIOLOGY REPORT (SQ) ---
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 Images reviewed with lung, soft tissue, and bone windows. Reconstructed coronal and sagittal MPR images reviewed. Delayed images for evaluat ion of the urinary system also acquired and evaluated. All images stored on PACS. All CT scanners at this facility use dose modulation, iterative reconstruc tion, and/or weight based dosing when appropriate to reduce radiation dose to as low as reasonably ac hievable (ALARA). [facility]: Dose Right [facility]: CareDose [facility]: Dose Right [facility]: Teradose 4D [facility]: marker.to CONTRAST TYPE AND DOSE: contrast/concentration: Isovue 350.00 mg/ml; Total Contrast Delivered: 71.0 ml; Total Saline Delivered: 66.0 ml RENAL FUNCTION: Creatinine 1.2 RADIATION DOSE: . LIMITATIONS: None. FINDINGS: LOWER CHEST: Chronic changes as described in CT of the chest. LIVER: Normal size. No masses. No dilated ducts. SPLEEN: Normal size. No focal lesions. PANCREAS: No masses. No significant calcifications. No adjacent inflammation or peripancreatic fluid collections. Pancreatic duct not dilated. GALLBLADDER: No identified stones by CT criteria. No inflammatory changes to suggest cholecystitis. ADRENAL GLANDS: No significant masses or asymmetry. RIGHT KIDNEY AND URETER: No solid masses. No significant calcifications. No hydronephrosis or hyd roureter. LEFT KIDNEY AND URETER: No solid masses. No significant calcifications. No hydronephrosis or hydr oureter. AORTA AND VESSELS: No aneurysm. No dissection. Renal arteries, SMA, celiac without stenosis. RETROPERITONEUM: No retroperitoneal adenopathy, hemorrhage or masses. BOWEL AND PERITONEAL CAVITY: No masses or inflammatory changes. No free fluid or peritoneal masses. APPENDIX: Not visualized. ABDOMINAL WALL: No masses. No hernias. BONES: Stable in appearance. OTHER: No other significant finding. IMPRESSION: No evidence of metastatic disease in the abdomen. TECHNICAL DOCUMENTATION: JOB ID: [id number] Quality ID # [id number]: Final reports with documentation of one or more dose reduction techniques (e.g., Au tomated exposure control, adjustment of the mA and/or kV according to patient size, use of iterative reconstruction technique) 2010 [employer]- All Rights Reserved Reading location - IP/workstation name: [email or web address]
== END ==
LOC: RAD 09:11
PROVIDERS: ATTEND Internal Medicine Medical Oncology
DX: C34.90 Malignant neoplasm of unspecified part of unspecified bronchus or lung (principal)
CPT/HCPCS: 71260; 74160

== ENCOUNTER → 2019-02-14 | Outpatient (CLI) | payer MEDICARE, MEDICAID ==
--- NOTE | 2019-02-15 08:27 | RADIOLOGY REPORT (SQ) ---
EXAM DESCRIPTION: PET CT SKULL/THIGH COMPLETED DATE/TIME: 02/14/2019 8:48 pm REASON FOR STUDY: C34.91 MALIGNANT NEOPLASM OF UNSP PART OF RIGHT BRONCHUS OR LUNG C34.91 MALIGNANT NEOPLASM OF UNSP PART OF RIGHT BRONCHUS OR COMPARISON: CT dated 08/21/2018. PET-CT dated 02/01/2018 and 09/16/2017. RADIONUCLIDE AND DOSE: 10 mCi F18 FDG The route of agent administration: Intravenous FASTING BLOOD SUGAR: 91 mg/dl CONTRAST TYPE AND DOSE: No CT contrast given. TECHNIQUE: Blood glucose level was verified. Above dose of FDG was injected intravenously. 2-D seg mented attenuation correction images were obtained from the base of the skull to the midthighs. Nonc ontrast CT images were obtained for attenuation correction and fusion with emission images. CT image s were performed without oral or intravenous contrast and are not sensitive for parenchymal lesions. A series of overlapping emission PET images were obtained. Images reviewed and manipulated at [facility] work station by the radiologist. Images stored on PACS. LIMITATIONS: None. FINDINGS: HEAD AND NECK: No areas of abnormal metabolic activity in the soft tissues of the head and neck. CHEST: Again seen are persistent parenchymal densities in both lungs. Mean SUV values vary from 1.86 to 2.85. ABDOMEN AND PELVIS: No areas of abnormal metabolic activity in the abdomen or pelvis. Expected physi ologic activity is present in the genitourinary system and bowel. PROXIMAL LOWER EXTREMITIES: No areas of abnormal metabolic activity in the soft tissues of the lower extremities. BONES: No abnormal metabolic activity in the visualized skeleton. ADDITIONAL CT FINDINGS: Chronic degenerative changes and surgical changes in the lumbar spine. No ad ditional significant findings on the noncontrast CT images. OTHER: No other significant findings. Background blood pool activity mean SUV 1.38. Background live r activity mean SUV 2.28. IMPRESSION: NO SIGNIFICANT INTERVAL CHANGE. CHRONIC PARENCHYMAL OPACITIES IN BOTH LUNGS WITH MILD I NCREASED ACTIVITY, GENERALLY SIMILAR TO PREVIOUS STUDIES. NO OTHER SIGNIFICANT FINDINGS. TECHNICAL DOCUMENTATION: JOB ID: [id number] [employer]- All Rights Reserved Reading location - IP/workstation name: [email or web address]
== END ==
LOC: RAD 15:17
PROVIDERS: ATTEND Internal Medicine Medical Oncology
DX: C34.91 Malignant neoplasm of unspecified part of right bronchus or lung (principal)
CPT/HCPCS: 78815; A9552

== ENCOUNTER 2019-10-06 10:53 | Inpatient (IN) | payer MEDICARE, MEDICAID ==
[2019-10-06 11:26] LABS: ABSOLUTE BASOPHILS # (AUTO) 0.1 10^3/uL (0.0-0.2); ABSOLUTE EOSINOPHILS # (AUTO) 0.2 10^3/uL (0.0-0.6); ABSOLUTE LYMPHOCYTES (AUTO) 1.4 10^3/uL (0.5-4.7); ABSOLUTE MONOCYTES (AUTO) 0.5 10^3/uL (0.1-1.4); ABSOLUTE NEUT (AUTO) 3.9 10^3/uL (1.7-8.2); BASOPHILS % (AUTO) 0.9 % (0-2); EOSINOPHILS % (AUTO) 2.6 % (0-6); HEMATOCRIT 36.3 % (36.0-47.0); HEMOGLOBIN 12.1 g/dL (12.0-15.5); LYMPHOCYTES % (AUTO) 22.8 % (13-45); MEAN CORPUSCULAR HEMOGLOBIN 31.4 pg (27.0-33.4); MEAN CORPUSCULAR HGB CONC 33.4 g/dL (32.0-36.0); MEAN CORPUSCULAR VOLUME 94 fl (80-97); MONOCYTES % (AUTO) 8.3 % (3-13); PLATELET COUNT 247 10^3/uL (150-450); RED BLOOD COUNT 3.86 10^6/uL (3.72-5.28); RED CELL DISTRIBUTION WIDTH 16.6 % (11.5-14.0); SEGMENTED NEUTROPHILS % (AUTO) 65.4 % (42-78); TOTAL CELLS COUNTED % (AUTO) 100 %; WHITE BLOOD COUNT 5.9 10^3/uL (4.0-10.5)
--- NOTE | 2019-10-06 11:41 | RADIOLOGY REPORT (SQ) ---
EXAM DESCRIPTION: CHEST SINGLE VIEW COMPLETED DATE/TIME: 10/06/2019 11:25 am REASON FOR STUDY: bed 20 db COMPARISON: 04/10/2015 NUMBER OF VIEWS: One view. TECHNIQUE: Single frontal radiographic view of the chest acquired. LIMITATIONS: None. FINDINGS: LUNGS AND PLEURA: There is bilateral interstitial airspace disease. This appears to have increased when compared to most recent chest CT performed with head evaluation on 02/14/2019 right upp er lobe opacity is not significantly changed. The interstitial changes are markedly increased when c ompared to prior chest film done in 2014. MEDIASTINUM AND HILAR STRUCTURES: No masses. Contour normal. HEART AND VASCULAR STRUCTURES: Stable in appearance. BONES: No acute findings. HARDWARE: None in the chest. OTHER: No other significant finding. IMPRESSION: Bilateral interstitial airspace disease most marked in the lung bases specifically perip ashley of the lung bases. There appears to have been slight progression when compared to prior PET-CT dated 02/14/2019. TECHNICAL DOCUMENTATION: JOB ID: [id number] [employer]- All Rights Reserved Reading location - IP/workstation name: [email or web address]
[2019-10-06 11:44] LABS: ALBUMIN 4.2 g/dL (3.5-5.0); ALKALINE PHOSPHATASE 103 U/L (38-126); ANION GAP 11 (5-19); ASPARTATE AMINO TRANSFERASE 63 U/L (14-36); BILIRUBIN,DIRECT 0.4 mg/dL (0.0-0.4); BILIRUBIN,TOTAL 0.9 mg/dL (0.2-1.3); BLOOD UREA NITROGEN 24 mg/dL (7-20); CALCIUM 10.6 mg/dL (8.4-10.2); CARBON DIOXIDE 24 mmol/L (22-30); CHLORIDE 105 mmol/L (98-107); CREATINE KINASE 87 U/L (30-135); GLUCOSE 104 mg/dL (75-110); POTASSIUM 3.5 mmol/L (3.6-5.0); TOTAL PROTEIN 7.7 g/dL (6.3-8.2)
[2019-10-06 11:53] LABS: CREATINE KINASE MB 1.46 ng/mL (<4.55)
[2019-10-06 11:55] LABS: TROPONIN I < 0.012 ng/mL
[2019-10-06] MEDS ORDERED: PREDNISONE 20 MG TABLET PO ONE (11:58)
[2019-10-06] MEDS ORDERED: IPRATROPIUM/ALBUTEROL 0.5-2.5 MG/3 ML AMPUL NEB ONE (11:58)
--- NOTE | 2019-10-06 11:58 | ER Document Report ---
ED General - General Chief Complaint: Breathing Difficulty Stated Complaint: SHORTNESS OF BREATH Time Seen by Provider: 10/06/19 11:04 Primary Care Provider: JOE SIM MD [ACTIVE STAFF] - Follow up as needed TRAVEL OUTSIDE OF THE [place] IN LAST 30 DAYS: No - Related Data Allergies/Adverse Reactions: Penicillins Allergy (Severe, Verified 02/06/18 11:07) RESP DISTRESS vancomycin [Vancomycin] Allergy (Severe, Verified 02/06/18 11:07) SEVERE ITCHING vancomycin HCl [From Vancocin] Allergy (Severe, Verified 02/06/18 11:07) SEVERE ITCHING Past Medical History - Social History Smoking Status: Unknown if Ever Smoked Frequency of alcohol use: None Drug Abuse: None Family History: Reviewed & Not Pertinent Patient has suicidal ideation: No Patient has homicidal ideation: No - Past Medical History Cardiac Medical History: Reports: Hx Hypertension - MEDICATED Denies: Hx Coronary Artery Disease, Hx Heart Attack Pulmonary Medical History: Reports: Hx Asthma - MEDICATED DAILY/NO HOSPITALIZATION, Hx Pneumonia - currently dx Denies: Hx Bronchitis, Hx COPD Neurological Medical History: Denies: Hx Cerebrovascular Accident, Hx Seizures Renal/ Medical History: Denies: Hx Peritoneal Dialysis GI Medical History: Denies: Hx Hepatitis, Hx Hiatal Hernia, Hx Ulcer Musculoskeletal Medical History: Reports Hx Arthritis - mild throughout Infectious Medical History: Denies: Hx Hepatitis Past Surgical History: Reports: Hx Appendectomy, Hx Hysterectomy. Denies: Hx Mastectomy, Hx Open Heart Surgery, Hx Pacemaker - Immunizations Hx Diphtheria, Pertussis, Tetanus Vaccination: Yes Hx Pneumococcal Vaccination: 10/13/17 Physical Exam - Vital signs Vitals: Resp Pulse Ox 26 H 96 10/06/19 11:11 10/06/19 11:11 - Notes Notes: Patient brought in by paramedics with a complaint of shortness of breath that started yesterday. They report the patient was in moderate respiratory distress when he got there with O2 sats in the low 80s. He was given 1 DuoNeb treatment and nitroglycerin and placed on BiPAP with improvement of her saturations. I would emergency department she still have some respiratory distress is able to follow commands. She was taken off the BiPAP additional history was obtained. But says she has had a shortness of breath for 2 days. She has some relief with her nebulizer. Any fevers or cough. Does have intermittent chest pain usually associated with the shortness of breath and goes away when she uses her nebulizer. The pain is substernal and nonradiating as a pressure sensation. Again it seems to go away after her DuoNeb treatment and she has no pain right now. Denies any previous history of coronary artery disease. She denies any recent fevers cough nausea vomiting or abdominal pain Medical history significant for hypertension COPD and lung cancer which is apparently stable and chemo in July. And thyroid disease Social history smokes but quit several years ago. No alcohol. Review of systems pertinent positives and negatives in HPI otherwise all the systems were reviewed and acutely negative PHYSICIAN EXAM -vital signs are noted triage note and note from triage reviewed GENERAL: Well-appearing, well-nourished and in __no acute respiratory distress is not able to talk in full sentences initially____ HEAD: Atraumatic, normocephalic. EYES: Pupils equal round and reactive to light, extraocular movements intact, sclera anicteric, conjunctiva are normal. ENT: nares patent, oropharynx clear without exudates. Moist mucous membranes. NECK: supple without lymphadenopathy LUNGS: Breath sounds clear to auscultation bilaterally and equal. No wheezes rales or rhonchi. However she is tachypneic HEART: Rapid and regular ABDOMEN: Soft, nontender, normoactive bowel sounds. EXTREMITIES: No deformity, +2 edema to midcalf which she says is chronic there is no palpable cords NEUROLOGICAL: No focal neurological deficits. Moves all extremities spontaneously and on command. Alert and oriented x4 is no questions appropriately PSYCH: Normal mood, normal affect. SKIN: Warm, Dry, normal turgor, no rashes or lesions noted. BACK-nontender in the midline Course - Re-evaluation Re-evalutation: 10/06/19 15:37 ED upon arrival patient was switched over to BiPAP and left on for about 30 minutes. On repeat evaluation she is resting much more complete heart rate is come down respiratory rate has come down we are able to wean her off BiPAP to nasal cannula. She was given 3 DuoNeb treatments as well as Solu-Medrol. Blood cultures were obtained she was started on broad-spectrum antibiotics cover multidrug-resistant organisms. He still slightly tachycardic and tachypneic. Medical decision making patient with a history of oxygen dependent COPD and lung cancer presents with increasing shortness of breath and hypoxia with pneumonia on CT and will need admission I have consulted the hospitalist - Vital Signs Vital signs: Temp Pulse Resp BP Pulse Ox 98.1 F 75 17 170/83 H 93 10/06/19 11:12 10/06/19 11:12 10/06/19 14:01 10/06/19 14:01 10/06/19 14:01 - Laboratory Result Diagrams: 10/06/19 11:06 10/06/19 11:06 Laboratory results interpreted by me: 10/06/19 10/06/19 11:06 11:06 RDW 16.6 H Potassium 3.5 L BUN 24 H Est GFR ( Amer) 53 L Est GFR (MDRD) Non-Af 44 L Calcium 10.6 H AST 63 H - EKG Interpretation by Me Additional EKG results interpreted by me: 10/06/19 14:59 EKG shows a normal sinus rhythm at a rate of 56 but a slurring of the ST segments in both the inferior and lateral leads it may be slightly worse from previous EKG from May 2018 and EKG is unchanged from the first Critical Care Note - Critical Care Note Total time excluding time spent on procedures (mins): 35 Discharge - Discharge Clinical Impression: Respiratory failure, Pneumonia Disposition: ADMITTED INPATIENT Admitting Provider: [facility] Admitted: Telemetry Referrals: JOE SIM MD [ACTIVE STAFF] - Follow up as needed
[2019-10-06 12:21] LABS: APPEARANCE,URINE CLEAR; BILIRUBIN,URINE NEGATIVE (NEGATIVE); COLOR,URINE STRAW; GLUCOSE, URINE NEGATIVE (NEGATIVE); KETONES,URINE NEGATIVE (NEGATIVE); LEUKOCYTE ESTERASE,URINE NEGATIVE (NEGATIVE); NITRITE,URINE NEGATIVE (NEGATIVE); PROTEIN,URINE NEGATIVE (NEGATIVE); URINE SPECIFIC GRAVITY 1.009; UROBILINOGEN,URINE NEGATIVE mg/dL (<2.0)
--- NOTE | 2019-10-06 13:05 | RADIOLOGY REPORT (SQ) ---
EXAM DESCRIPTION: CTA CHEST COMPLETED DATE/TIME: 10/06/2019 12:53 pm REASON FOR STUDY: Shortness of breath COMPARISON: CT chest dated 08/21/2019, PET-CT images dated 02/14/2019 TECHNIQUE: CT scan of the chest performed using helical scanning technique with dynamic intravenous contrast injection. Images reviewed with lung, soft tissue and bone windows. Reconstructed coronal and sagittal MPR images reviewed. Additional 3 dimensional post-processing performed to develop Maximal Intensity Projection images (IN P). All images stored on PACS. All CT scanners at this facility use dose modulation, iterative reconstruction, and/or weight based d osing when appropriate to reduce radiation dose to as low as reasonably achievable (ALARA). [facility]: Dose Right [facility]: CareDose [facility]: Dose Right [facility]: Teradose 4D [facility]: [employer] CONTRAST TYPE AND DOSE: 52 mL Omnipaque 350 Contrast bolus adequate for pulmonary arteries and aorta. RENAL FUNCTION: BUN 24, creatinine 1.19 RADIATION DOSE: CT Rad equipment meets quality standard of care and radiation dose reduction techniq ues were employed. CTDIvol: 6.6 - 14.3 mGy. DLP: 492 mGy-cm. . LIMITATIONS: None. FINDINGS: LUNGS AND PLEURA: There are small pleural effusions and diffuse bilateral airspace disease . Changes in the right upper lobe are grossly stable from prior PET-CT. Changes in the left upper l obe are also unchanged. The pleural effusions and basilar infiltrates have progressed when compared to prior exam. AORTA AND GREAT VESSELS: No aneurysm. Contrast bolus not optimized for the aorta. HEART: No pericardial effusion. No significant coronary artery calcifications. PULMONARY ARTERIES: No emboli visualized in the main pulmonary arteries or the segmental branches. HILAR AND MEDIASTINAL STRUCTURES: No identified masses or abnormal nodes. HARDWARE: None in the chest. UPPER ABDOMEN: No significant findings. Limited exam. THYROID AND OTHER SOFT TISSUES: No masses. No adenopathy. BONES: No acute or significant finding. 3D MIPS: Confirm above findings. OTHER: No other significant finding. IMPRESSION: 1. Chronic bilateral upper lobe changes. 2. New bilateral pleural effusions and basilar infiltrate right greater than left. This is new from prior study. 3. No pulmonary emboli. COMMENT: Quality ID # [id number]: Final reports with documentation of one or more dose reduction techniques (e.g., Automated exposure control, adjustment of the mA and/or kV according to patient size, use of iterative reconstruction technique) TECHNICAL DOCUMENTATION: JOB ID: [id number] [employer]- All Rights Reserved Reading location - IP/workstation name: [email or web address]
[2019-10-06] MEDS ORDERED: LEVOFLOXACIN 750 MG/D5W RTU 750 MG/150 ML RTUPB IV ONE (14:04)
[2019-10-06] MEDS ORDERED: AZTREONAM INJ 1 GM VIAL IV ONE (14:04)
[2019-10-06] MEDS ORDERED: ACETAMINOPHEN 325 MG TABLET PO PRN (15:24)
[2019-10-06] MEDS ORDERED: ONDANSETRON HCL INJ/PF 4 MG/2 ML SDV IV PRN (15:24)
[2019-10-06] MEDS ORDERED: TEMAZEPAM 15 MG CAPSULE PO PRN (15:24)
[2019-10-06] MEDS ORDERED: POTASSIUM CHLORIDE 10 MEQ CAPSULE.ER PO ONE (15:39)
[2019-10-06] MEDS ORDERED: ALBUTEROL SULFATE 0.083% NEB 2.5 MG/3 ML AMPUL NEB PRN (15:46)
[2019-10-06] MEDS ORDERED: BENZONATATE 100 MG CAPSULE PO PRN (15:46)
--- NOTE | 2019-10-06 15:47 | PDOC H&P ---
History of Present Illness Admission Date/PCP: 10/06/2019 MELLO MIRAMONTES Patient complains of: Shortness of breath History of Present Illness: ABDIAZIZ BULLARD is a 79 year old female who presented to the ER via EMS with shortness of breath. Patient states she been having lung pain for several days prior to her admission. Patient discharged home O2 oxygen saturation has been in the low 80s. Patient had no treatment prior to arrival all active is been aggravating factor. Past Medical History Cardiac Medical History: Reports: Hypertension - MEDICATED Denies: Coronary Artery Disease, Myocardial Infarction Pulmonary Medical History: Reports: Asthma - MEDICATED DAILY/NO HOSPITALIZATION, Pneumonia - currently dx Denies: Bronchitis, Chronic Obstructive Pulmonary Disease (COPD) Neurological Medical History: Denies: Seizures GI Medical History: Denies: Hepatitis, Hiatal Hernia Musculoskeltal Medical History: Reports: Arthritis - mild throughout Hematology: Denies: Anemia, Sickle Cell Disease Past Surgical History Past Surgical History: Reports: Appendectomy, Hysterectomy Denies: Amputation, Mastectomy, Pacemaker Social History Information Source: Patient Lives with: Family Smoking Status: Former Smoker Electronic Cigarette use?: No Frequency of Alcohol Use: None Hx Recreational Drug Use: No Drugs: None Hx Prescription Drug Abuse: No - Advance Directive Resuscitation Status: Full Code Family History Family History: COPD, Hypertension Parental Family History Reviewed: Yes Children Family History Reviewed: Yes Sibling(s) Family History Reviewed.: Yes Medication/Allergy Allergies/Adverse Reactions: Penicillins Allergy (Severe, Verified 02/06/18 11:07) RESP DISTRESS vancomycin [Vancomycin] Allergy (Severe, Verified 02/06/18 11:07) SEVERE ITCHING vancomycin HCl [From Vancocin] Allergy (Severe, Verified 02/06/18 11:07) SEVERE ITCHING Review of Systems Constitutional: ABSENT: chills, fever(s), headache(s), weight gain, weight loss Eyes: ABSENT: visual disturbances Ears: ABSENT: hearing changes Cardiovascular: ABSENT: chest pain, dyspnea on exertion, edema, orthropnea, palpitations Respiratory: PRESENT: cough, dyspnea, sputum, other - Wheeze. ABSENT: hemoptysis Gastrointestinal: ABSENT: abdominal pain, constipation, diarrhea, hematemesis, hematochezia, nausea, vomiting Genitourinary: ABSENT: dysuria, hematuria Musculoskeletal: ABSENT: joint swelling Integumentary: ABSENT: rash, wounds Neurological: ABSENT: abnormal gait, abnormal speech, confusion, dizziness, focal weakness, syncope Psychiatric: ABSENT: anxiety, depression, homidical ideation, suicidal ideation Endocrine: ABSENT: cold intolerance, heat intolerance, polydipsia, polyuria Hematologic/Lymphatic: ABSENT: easy bleeding, easy bruising Physical Exam Vital Signs: Temp Pulse Resp BP Pulse Ox 98.1 F 75 17 170/83 H 93 10/06/19 11:12 10/06/19 11:12 10/06/19 14:01 10/06/19 14:01 10/06/19 14:01 Intake & Output 10/05/19 10/06/19 10/07/19 06:59 06:59 06:59 Weight 65.771 kg General appearance: PRESENT: no acute distress, well-developed, well-nourished Head exam: PRESENT: atraumatic, normocephalic Eye exam: PRESENT: conjunctiva pink, EOMI, PERRLA. ABSENT: scleral icterus Ear exam: PRESENT: normal external ear exam Mouth exam: PRESENT: moist, tongue midline Neck exam: ABSENT: carotid bruit, JVD, lymphadenopathy, thyromegaly Respiratory exam: PRESENT: clear to auscultation meseret, decreased breath sounds, rhonchi, symmetrical, unlabored, wheezes. ABSENT: rales Cardiovascular exam: PRESENT: RRR. ABSENT: diastolic murmur, rubs, systolic murmur Pulses: PRESENT: normal dorsalis pedis pul Vascular exam: PRESENT: normal capillary refill GI/Abdominal exam: PRESENT: normal bowel sounds, soft. ABSENT: distended, guarding, mass, organolmegaly, rebound, tenderness Rectal exam: PRESENT: deferred Extremities exam: PRESENT: full ROM. ABSENT: calf tenderness, clubbing, pedal edema Neurological exam: PRESENT: alert, awake, oriented to person, oriented to place, oriented to time, oriented to situation, CN II-XII grossly intact. ABSENT: motor sensory deficit Psychiatric exam: PRESENT: appropriate affect, normal mood. ABSENT: homicidal ideation, suicidal ideation Skin exam: PRESENT: dry, intact, warm. ABSENT: cyanosis, rash Results Laboratory Results: 10/06/19 11:06 10/06/19 11:06 10/06/19 10/06/19 10/06/19 11:06 11:06 11:06 WBC 5.9 RBC 3.86 Hgb 12.1 Hct 36.3 MCV 94 MCH 31.4 MCHC 33.4 RDW 16.6 H Plt Count 247 Seg Neutrophils % 65.4 Sodium 140.3 Potassium 3.5 L Chloride 105 Carbon Dioxide 24 Anion Gap 11 BUN 24 H Creatinine 1.19 Est GFR ( Amer) 53 L Glucose 104 Lactic Acid 1.9 Calcium 10.6 H Total Bilirubin 0.9 AST 63 H Alkaline Phosphatase 103 Total Protein 7.7 Albumin 4.2 TSH Urine Color Urine Appearance Urine pH Ur Specific [place] Urine Protein Urine Glucose (UA) Urine Ketones Urine Blood Urine Nitrite Ur Leukocyte Esterase Urine WBC (Auto) Urine RBC (Auto) 10/06/19 10/06/19 11:06 11:55 WBC RBC Hgb Hct MCV MCH MCHC RDW Plt Count Seg Neutrophils % Sodium Potassium Chloride Carbon Dioxide Anion Gap BUN Creatinine Est GFR ( Amer) Glucose Lactic Acid Calcium Total Bilirubin AST Alkaline Phosphatase Total Protein Albumin TSH 1.69 Urine Color STRAW Urine Appearance CLEAR Urine pH 9.0 Ur Specific [place] 1.009 Urine Protein NEGATIVE Urine Glucose (UA) NEGATIVE Urine Ketones NEGATIVE Urine Blood NEGATIVE Urine Nitrite NEGATIVE Ur Leukocyte Esterase NEGATIVE Urine WBC (Auto) 1 Urine RBC (Auto) 1 10/06/19 10/06/19 11:06 11:06 Creatine Kinase 87 CK-MB (CK-2) 1.46 Troponin I < 0.012 Impressions: Chest X-Ray 10/06/19 10:55 IMPRESSION: Bilateral interstitial airspace disease most marked in the lung bases specifically periphery of the lung bases. There appears to have been sl ight progression when compared to prior PET-CT dated 02/14/2019. Chest/Abdomen CTA 10/06/19 12:00 IMPRESSION: 1. Chronic bilateral upper lobe changes. 2. New bilateral pleural effusions and basilar infiltrate right greater than left. This is new from prior study. 3. No pulmonary emboli. Assessment and Plan - Diagnosis (1) Community acquired pneumonia Is this a current diagnosis for this admission?: Yes Plan: 10/06/2019-as patient has severe penicillin allergy will place patient on Aztranam 2gm iv bid and azithromycin 500 mg iv daily. Await cultures. BiPAP at night. Oxygen supplementally. Incentive spirometry. Albuterol nebs as needed (2) Hypokalemia Is this a current diagnosis for this admission?: Yes Plan: 10/06/2019-potassium chloride 40 mEq p.o. times 1 repeat BMP in a.m. (3) Cough Is this a current diagnosis for this admission?: Yes Plan: 10/06/2019-Tessalon Perles 100 mg 3 times daily. - Time Time Spent with patient: 35 or more minutes - Inpatient Certification Based on my medical assessment, after consideration of the patient's comorbidities, presenting symptoms, or acuity I expect that the services needed warrant INPATIENT care.: Yes I certify that my determination is in accordance with my understanding of Medicare's requirements for reasonable and necessary INPATIENT services [42 CFR 412.3e].: Yes Medical Necessity: Need for IV Antibiotics
[2019-10-06] MEDS: OXYCODONE-ACETAMINOPHEN 5-325 MG TABLET PO PRN ×2 (15:50→21:31)
[2019-10-06] MEDS ORDERED: AZTREONAM INJ 1 GM VIAL IV SCH (18:00)
[2019-10-06] MEDS: METHYLPREDNISOLONE INJ 40 MG/1 ML SDV IV SCH (18:02)
[2019-10-06] MEDS: AZTREONAM 2 GM in DEXTROSE 5%-WATER 100 ML IV SCH (18:21)
[2019-10-06] MEDS: ZOLPIDEM TARTRATE 5 MG TABLET PO PRN (21:31)
[2019-10-06] MEDS: HEPARIN SOD (PORCINE) 5,000 UNIT/ML 1 ML VIAL SUBCUT SCH (21:31)
--- NOTE | 2019-10-06 23:33 | EKG REPORT ---
SEVERITY:- BORDERLINE ECG - SINUS RHYTHM BORDERLINE ST DEPRESSION, LATERAL LEADS : Confirmed by: Jessica Huitron MD 06-Oct-2019 23:32:00
--- NOTE | 2019-10-06 23:33 | EKG REPORT ---
SEVERITY:- OTHERWISE NORMAL ECG - SINUS TACHYCARDIA ATRIAL PREMATURE COMPLEX : Confirmed by: Jessica Huitron MD 06-Oct-2019 23:31:57
[2019-10-07] MEDS: METHYLPREDNISOLONE INJ 40 MG/1 ML SDV IV SCH ×3 (01:51→17:20)
[2019-10-07] MEDS: NORMAL SALINE 1000 ML 1,000 ML IV PRN (03:31)
[2019-10-07] MEDS: AZTREONAM 2 GM in DEXTROSE 5%-WATER 100 ML IV SCH ×2 (05:10→17:20)
[2019-10-07] MEDS: HEPARIN SOD (PORCINE) 5,000 UNIT/ML 1 ML VIAL SUBCUT SCH ×3 (05:10→21:09)
[2019-10-07 06:43] LABS: HEMATOCRIT 32.6 % (36.0-47.0); HEMOGLOBIN 10.8 g/dL (12.0-15.5); MEAN CORPUSCULAR HEMOGLOBIN 30.9 pg (27.0-33.4); MEAN CORPUSCULAR HGB CONC 33.1 g/dL (32.0-36.0); MEAN CORPUSCULAR VOLUME 94 fl (80-97); PLATELET COUNT 229 10^3/uL (150-450); RED BLOOD COUNT 3.48 10^6/uL (3.72-5.28); RED CELL DISTRIBUTION WIDTH 16.6 % (11.5-14.0); WHITE BLOOD COUNT 6.2 10^3/uL (4.0-10.5)
[2019-10-07] MEDS: MAG HYDROX/AL HYDROX/SIMETH SUSP 30 ML UDCUP PO PRN (08:30)
[2019-10-07] MEDS ORDERED: BENZONATATE 100 MG CAPSULE PO PRN (09:05)
[2019-10-07] MEDS: AZITHROMYCIN 500 MG in DEXTROSE 5%-WATER 250 ML IV SCH (09:12)
[2019-10-07] MEDS ORDERED: ONDANSETRON HCL INJ/PF 4 MG/2 ML SDV IV PRN (09:30)
[2019-10-07] MEDS ORDERED: AZITHROMYCIN INJ 500 MG VIAL IV SCH (10:00)
--- NOTE | 2019-10-07 10:07 | PDOC PROGRESS REPORT ---
Subjective Progress Note for:: 10/07/19 Subjective:: 10/07/2019-no complaints Reason For Visit: COMMUNITY ACQUIRED PNEUMONIA Physical Exam Vital Signs: Temp Pulse Resp BP Pulse Ox 97.7 F 75 20 148/48 H 94 10/06/19 23:25 10/06/19 23:25 10/06/19 23:25 10/06/19 23:25 10/06/19 23:25 Intake & Output 10/06/19 10/07/19 10/08/19 06:59 06:59 06:59 Intake Total 1117 Output Total 900 Balance 217 Weight 68.4 kg General appearance: PRESENT: no acute distress, well-developed, well-nourished Neck exam: ABSENT: carotid bruit, JVD, lymphadenopathy, thyromegaly Respiratory exam: PRESENT: clear to auscultation meseret, decreased breath sounds, symmetrical, unlabored Cardiovascular exam: PRESENT: RRR. ABSENT: diastolic murmur, rubs, systolic murmur Pulses: PRESENT: normal dorsalis pedis pul Vascular exam: PRESENT: normal capillary refill GI/Abdominal exam: PRESENT: normal bowel sounds, soft. ABSENT: distended, guarding, mass, organolmegaly, rebound, tenderness Extremities exam: PRESENT: full ROM. ABSENT: calf tenderness, clubbing, pedal edema Neurological exam: PRESENT: alert, awake, oriented to person, oriented to place, oriented to time, oriented to situation, CN II-XII grossly intact. ABSENT: motor sensory deficit Psychiatric exam: PRESENT: appropriate affect, normal mood. ABSENT: homicidal ideation, suicidal ideation Skin exam: PRESENT: dry, intact, warm. ABSENT: cyanosis, rash Results Laboratory Results: 10/07/19 05:53 10/06/19 11:06 10/06/19 10/06/19 10/06/19 11:06 11:06 11:06 WBC 5.9 RBC 3.86 Hgb 12.1 Hct 36.3 MCV 94 MCH 31.4 MCHC 33.4 RDW 16.6 H Plt Count 247 Seg Neutrophils % 65.4 Sodium 140.3 Potassium 3.5 L Chloride 105 Carbon Dioxide 24 Anion Gap 11 BUN 24 H Creatinine 1.19 Est GFR ( Amer) 53 L Glucose 104 Lactic Acid 1.9 Calcium 10.6 H Phosphorus Magnesium Total Bilirubin 0.9 AST 63 H Alkaline Phosphatase 103 Total Protein 7.7 Albumin 4.2 TSH Urine Color Urine Appearance Urine pH Ur Specific [place] Urine Protein Urine Glucose (UA) Urine Ketones Urine Blood Urine Nitrite Ur Leukocyte Esterase Urine WBC (Auto) Urine RBC (Auto) 10/06/19 10/06/19 10/07/19 11:06 11:55 05:53 WBC 6.2 RBC 3.48 L Hgb 10.8 L Hct 32.6 L MCV 94 MCH 30.9 MCHC 33.1 RDW 16.6 H Plt Count 229 Seg Neutrophils % Sodium Potassium Chloride Carbon Dioxide Anion Gap BUN Creatinine Est GFR ( Amer) Glucose Lactic Acid Calcium Phosphorus Magnesium Total Bilirubin AST Alkaline Phosphatase Total Protein Albumin TSH 1.69 Urine Color STRAW Urine Appearance CLEAR Urine pH 9.0 Ur Specific [place] 1.009 Urine Protein NEGATIVE Urine Glucose (UA) NEGATIVE Urine Ketones NEGATIVE Urine Blood NEGATIVE Urine Nitrite NEGATIVE Ur Leukocyte Esterase NEGATIVE Urine WBC (Auto) 1 Urine RBC (Auto) 1 10/07/19 05:53 WBC RBC Hgb Hct MCV MCH MCHC RDW Plt Count Seg Neutrophils % Sodium Potassium Chloride Carbon Dioxide Anion Gap BUN Creatinine Est GFR ( Amer) Glucose Lactic Acid Calcium Phosphorus 5.0 H Magnesium 2.0 Total Bilirubin AST Alkaline Phosphatase Total Protein Albumin TSH Urine Color Urine Appearance Urine pH Ur Specific [place] Urine Protein Urine Glucose (UA) Urine Ketones Urine Blood Urine Nitrite Ur Leukocyte Esterase Urine WBC (Auto) Urine RBC (Auto) 10/06/19 10/06/19 11:06 11:06 Creatine Kinase 87 CK-MB (CK-2) 1.46 Troponin I < 0.012 Impressions: Chest X-Ray 10/06/19 10:55 IMPRESSION: Bilateral interstitial airspace disease most marked in the lung bases specifically periphery of the lung bases. There appears to have been slight progression when compared to prior PET-CT dated 02/14/2019. Chest/Abdomen CTA 10/06/19 12:00 IMPRESSION: 1. Chronic bilateral upper lobe changes. 2. New bilateral pleural effusions and basilar infiltrate right greater than left. This is new from prior study. 3. No pulmonary emboli. Assessment and Plan - Diagnosis (1) Community acquired pneumonia Is this a current diagnosis for this admission?: Yes Plan: 10/06/2019-as patient has severe penicillin allergy will place patient on Aztranam 2gm iv bid and azithromycin 500 mg iv daily. Await cultures. BiPAP at night. Oxygen supplementally. Incentive spirometry. Albuterol nebs as needed -much improved today. Continue current antibiotic therapy await fatou baron. BiPAP at night supplemental oxygen incentive spirometry (2) Hypokalemia Is this a current diagnosis for this admission?: Yes Plan: 10/06/2019-potassium chloride 40 mEq p.o. times 1 repeat BMP in a.m. -stable continue to follow (3) Cough Is this a current diagnosis for this admission?: Yes Plan: 10/06/2019-Tessalon Perles 100 mg 3 times daily. -continue Tessalon Perles - Time Time Spent with patient: 15-24 minutes - Inpatient Certification Based on my medical assessment, after consideration of the patient's comorbidities, presenting symptoms, or acuity I expect that the services needed warrant INPATIENT care.: Yes I certify that my determination is in accordance with my understanding of Medicare's requirements for reasonable and necessary INPATIENT services [42 CFR 412.3e].: Yes Medical Necessity: Need for IV Antibiotics
[2019-10-07] MEDS: ALBUTEROL SULFATE 0.083% NEB 2.5 MG/3 ML AMPUL NEB PRN (12:08)
[2019-10-07] MEDS: OXYCODONE-ACETAMINOPHEN 5-325 MG TABLET PO PRN ×2 (13:27→21:08)
[2019-10-07] MEDS: ZOLPIDEM TARTRATE 5 MG TABLET PO PRN (21:08)
[2019-10-07] MEDS: HYDRALAZINE HCL 50 MG TABLET PO SCH (21:08)
[2019-10-08] MEDS: METHYLPREDNISOLONE INJ 40 MG/1 ML SDV IV SCH ×3 (01:18→17:12)
[2019-10-08] MEDS: NORMAL SALINE 1000 ML 1,000 ML IV PRN (03:20)
[2019-10-08 04:46] LABS: HEMOGLOBIN 10.5 g/dL (12.0-15.5); MEAN CORPUSCULAR HEMOGLOBIN 30.9 pg (27.0-33.4); MEAN CORPUSCULAR HGB CONC 32.8 g/dL (32.0-36.0); MEAN CORPUSCULAR VOLUME 94 fl (80-97); PLATELET COUNT 254 10^3/uL (150-450); RED CELL DISTRIBUTION WIDTH 16.9 % (11.5-14.0); WHITE BLOOD COUNT 12.2 10^3/uL (4.0-10.5)
[2019-10-08 05:08] LABS: ANION GAP 11 (5-19); BLOOD UREA NITROGEN 37 mg/dL (7-20); CALCIUM 10.2 mg/dL (8.4-10.2); CARBON DIOXIDE 20 mmol/L (22-30); CHLORIDE 112 mmol/L (98-107); GLUCOSE 141 mg/dL (75-110); POTASSIUM 4.5 mmol/L (3.6-5.0)
[2019-10-08] MEDS: AZTREONAM 2 GM in DEXTROSE 5%-WATER 100 ML IV SCH ×2 (05:09→17:12)
[2019-10-08] MEDS: HEPARIN SOD (PORCINE) 5,000 UNIT/ML 1 ML VIAL SUBCUT SCH ×3 (05:09→22:57)
[2019-10-08] MEDS: ALBUTEROL SULFATE 0.083% NEB 2.5 MG/3 ML AMPUL NEB PRN ×2 (07:47→15:41)
[2019-10-08] MEDS: FUROSEMIDE 20 MG TABLET PO SCH (08:20)
[2019-10-08] MEDS: MAG HYDROX/AL HYDROX/SIMETH SUSP 30 ML UDCUP PO PRN (08:20)
[2019-10-08] MEDS: LOSARTAN POTASSIUM 50 MG TABLET PO SCH (10:06)
--- NOTE | 2019-10-08 10:07 | PDOC PROGRESS REPORT ---
Subjective Progress Note for:: 10/08/19 Subjective:: 10/07/2019-no complaints 10/08/2019-no complaints this a.m. Reason For Visit: COMMUNITY ACQUIRED PNEUMONIA Physical Exam Vital Signs: Temp Pulse Resp BP Pulse Ox 98.1 F 71 17 172/58 H 92 10/08/19 08:00 10/08/19 08:00 10/08/19 08:00 10/08/19 08:00 10/08/19 08:00 Intake & Output 10/07/19 10/08/19 10/09/19 06:59 06:59 06:59 Intake Total 1117 3275 Output Total 900 1625 Balance 217 1650 Weight 68.4 kg 69.2 kg General appearance: PRESENT: no acute distress, well-developed, well-nourished Neck exam: ABSENT: carotid bruit, JVD, lymphadenopathy, thyromegaly Respiratory exam: PRESENT: decreased breath sounds, rhonchi, symmetrical, tachypnea, unlabored Cardiovascular exam: PRESENT: RRR. ABSENT: diastolic murmur, rubs, systolic murmur Pulses: PRESENT: normal dorsalis pedis pul Vascular exam: PRESENT: normal capillary refill GI/Abdominal exam: PRESENT: normal bowel sounds, soft. ABSENT: distended, guarding, mass, organolmegaly, rebound, tenderness Extremities exam: PRESENT: full ROM. ABSENT: calf tenderness, clubbing, pedal edema Neurological exam: PRESENT: alert, awake, oriented to person, oriented to place, oriented to time, oriented to situation, CN II-XII grossly intact. ABSENT: motor sensory deficit Psychiatric exam: PRESENT: appropriate affect, normal mood. ABSENT: homicidal ideation, suicidal ideation Skin exam: PRESENT: dry, intact, warm. ABSENT: cyanosis, rash Results Laboratory Results: 10/08/19 03:26 10/08/19 03:26 10/08/19 10/08/19 03:26 03:26 WBC 12.2 H RBC 3.40 L Hgb 10.5 L Hct 32.0 L MCV 94 MCH 30.9 MCHC 32.8 RDW 16.9 H Plt Count 254 Sodium 142.6 Potassium 4.5 Chloride 112 H Carbon Dioxide 20 L Anion Gap 11 BUN 37 H Creatinine 1.22 Est GFR ( Amer) 51 L Glucose 141 H Calcium 10.2 10/06/19 10/06/19 11:06 11:06 Creatine Kinase 87 CK-MB (CK-2) 1.46 Troponin I < 0.012 Impressions: Chest X-Ray 10/06/19 10:55 IMPRESSION: Bilateral interstitial airspace disease most marked in the lung bases specifically periphery of the lung bases. There appears to have been slight progression when compared to prior PET-CT dated 02/14/2019. Chest/Abdomen CTA 10/06/19 12:00 IMPRESSION: 1. Chronic bilateral upper lobe changes. 2. New bilateral pleural effusions and basilar infiltrate right greater than left. This is new from prior study. 3. No pulmonary emboli. Assessment and Plan - Diagnosis (1) Community acquired pneumonia Is this a current diagnosis for this admission?: Yes Plan: 10/06/2019-as patient has severe penicillin allergy will place patient on Aztranam 2gm iv bid and azithromycin 500 mg iv daily. Await cultures. BiPAP at night. Oxygen supplementally. Incentive spirometry. Albuterol nebs as needed -much improved today. Continue current antibiotic therapy await cultures. BiPAP at night supplemental oxygen incentive spirometry 10/08/2019-continues to show improvement however she still has rhonchi scattered throughout. Continue current IV antibiotic therapy, supplemental oxygen incentive spirometry and BiPAP at night. (2) Hypokalemia Is this a current diagnosis for this admission?: Yes Plan: 10/06/2019-potassium chloride 40 mEq p.o. times 1 repeat BMP in a.m. -stable continue to follow 10/08/2019-stable continue to follow (3) Cough Is this a current diagnosis for this admission?: Yes Plan: 10/06/2019-Tessalon Perles 100 mg 3 times daily. -continue Tessalon Perles 10/08/2019-continue Tessalon Perles (4) Hypertension Is this a current diagnosis for this admission?: Yes Plan: 10/08/2019-remains elevated. I have titrated her hydralazine to 100 mg p.o. twice daily will continue to follow - Time Time Spent with patient: 15-24 minutes - Inpatient Certification Based on my medical assessment, after consideration of the patient's co morbidities, presenting symptoms, or acuity I expect that the services needed warrant INPATIENT care.: Yes I certify that my determination is in accordance with my understanding of Medicare's requirements for reasonable and necessary INPATIENT services [42 CFR 412.3e].: Yes Medical Necessity: Need for IV Antibiotics
[2019-10-08] MEDS: AZITHROMYCIN 500 MG in DEXTROSE 5%-WATER 250 ML IV SCH (10:08)
[2019-10-08] MEDS: MELOXICAM 15 MG TABLET PO SCH (10:09)
[2019-10-08] MEDS: LEVOTHYROXINE SODIUM 0.075 MG TABLET PO SCH (10:09)
[2019-10-08] MEDS: FLUTICASONE/VILANTEROL 200-25 MCG/DOSE IH SCH (10:10)
[2019-10-08] MEDS: HYDRALAZINE HCL 50 MG TABLET PO SCH ×3 (10:53→22:57)
[2019-10-08] MEDS: OXYCODONE-ACETAMINOPHEN 5-325 MG TABLET PO PRN (19:59)
[2019-10-08] MEDS: ZOLPIDEM TARTRATE 5 MG TABLET PO PRN (23:01)
[2019-10-09] MEDS: METHYLPREDNISOLONE INJ 40 MG/1 ML SDV IV SCH ×3 (02:22→18:42)
[2019-10-09] MEDS: HEPARIN SOD (PORCINE) 5,000 UNIT/ML 1 ML VIAL SUBCUT SCH ×3 (05:02→21:25)
[2019-10-09 05:22] LABS: HEMOGLOBIN 10.6 g/dL (12.0-15.5); MEAN CORPUSCULAR HEMOGLOBIN 31.1 pg (27.0-33.4); MEAN CORPUSCULAR HGB CONC 33.1 g/dL (32.0-36.0); MEAN CORPUSCULAR VOLUME 94 fl (80-97); PLATELET COUNT 258 10^3/uL (150-450); RED BLOOD COUNT 3.41 10^6/uL (3.72-5.28); RED CELL DISTRIBUTION WIDTH 16.8 % (11.5-14.0); WHITE BLOOD COUNT 11.8 10^3/uL (4.0-10.5)
[2019-10-09] MEDS: AZTREONAM 2 GM in DEXTROSE 5%-WATER 100 ML IV SCH ×2 (05:26→18:41)
[2019-10-09 05:46] LABS: ANION GAP 8 (5-19); BLOOD UREA NITROGEN 42 mg/dL (7-20); CALCIUM 9.9 mg/dL (8.4-10.2); CARBON DIOXIDE 24 mmol/L (22-30); CHLORIDE 108 mmol/L (98-107); GLUCOSE 110 mg/dL (75-110); POTASSIUM 4.4 mmol/L (3.6-5.0)
[2019-10-09] MEDS: ALBUTEROL SULFATE 0.083% NEB 2.5 MG/3 ML AMPUL NEB PRN ×2 (07:57→15:39)
[2019-10-09] MEDS: FLUTICASONE/VILANTEROL 200-25 MCG/DOSE IH SCH (09:39)
[2019-10-09] MEDS: HYDRALAZINE HCL 50 MG TABLET PO SCH ×2 (09:39→21:24)
[2019-10-09] MEDS: LOSARTAN POTASSIUM 50 MG TABLET PO SCH (09:40)
[2019-10-09] MEDS: LEVOTHYROXINE SODIUM 0.075 MG TABLET PO SCH (09:40)
[2019-10-09] MEDS: MELOXICAM 15 MG TABLET PO SCH (09:41)
[2019-10-09] MEDS: AZITHROMYCIN 500 MG in DEXTROSE 5%-WATER 250 ML IV SCH (09:41)
[2019-10-09] MEDS: FUROSEMIDE 20 MG TABLET PO SCH (09:43)
--- NOTE | 2019-10-09 10:36 | PDOC PROGRESS REPORT ---
Subjective Progress Note for:: 10/09/19 Subjective:: 10/07/2019-no complaints 10/08/2019-no complaints this a.m. 10/09/2019-shortness of breath Reason For Visit: COMMUNITY ACQUIRED PNEUMONIA Physical Exam Vital Signs: Temp Pulse Resp BP Pulse Ox 97.3 F 65 19 172/54 H 92 10/09/19 08:00 10/09/19 08:00 10/09/19 08:00 10/09/19 08:00 10/09/19 08:00 Intake & Output 10/08/19 10/09/19 10/10/19 06:59 06:59 06:59 Intake Total 3275 2806 Output Total 1625 3225 Balance 1650 -419 Weight 69.2 kg 69 kg General appearance: PRESENT: no acute distress, well-developed, well-nourished Neck exam: ABSENT: carotid bruit, JVD, lymphadenopathy, thyromegaly Respiratory exam: PRESENT: clear to auscultation meseret, decreased breath sounds, symmetrical, tachypnea, unlabored Cardiovascular exam: PRESENT: RRR. ABSENT: diastolic murmur, rubs, systolic murmur Pulses: PRESENT: +1 pedal pulses bilateral Vascular exam: PRESENT: normal capillary refill GI/Abdominal exam: PRESENT: normal bowel sounds, soft. ABSENT: distended, g uarding, mass, organolmegaly, rebound, tenderness Extremities exam: PRESENT: full ROM. ABSENT: calf tenderness, clubbing, pedal edema Neurological exam: PRESENT: alert, awake, oriented to person, oriented to place, oriented to time, oriented to situation, CN II-XII grossly intact. ABSENT: motor sensory deficit Psychiatric exam: PRESENT: appropriate affect, normal mood. ABSENT: homicidal ideation, suicidal ideation Skin exam: PRESENT: dry, intact, warm. ABSENT: cyanosis, rash Results Laboratory Results: 10/09/19 04:44 10/09/19 04:44 10/09/19 10/09/19 04:44 04:44 WBC 11.8 H RBC 3.41 L Hgb 10.6 L Hct 32.0 L MCV 94 MCH 31.1 MCHC 33.1 RDW 16.8 H Plt Count 258 Sodium 140.0 Potassium 4.4 Chloride 108 H Carbon Dioxide 24 Anion Gap 8 BUN 42 H Creatinine 1.08 Est GFR ( Amer) 59 L Glucose 110 Calcium 9.9 10/06/19 10/06/19 11:06 11:06 Creatine Kinase 87 CK-MB (CK-2) 1.46 Troponin I < 0.012 Impressions: Chest X-Ray 10/06/19 10:55 IMPRESSION: Bilateral interstitial airspace disease most marked in the lung bases specifically periphery of the lung bases. There appears to have been slight progression when compared to prior PET-CT dated 02/14/2019. Chest/Abdomen CTA 10/06/19 12:00 IMPRESSION: 1. Chronic bilateral upper lobe changes. 2. New bilateral pleural effusions and basilar infiltrate right greater than left. This is new from prior study. 3. No pulmonary emboli. Assessment and Plan - Diagnosis (1) Community acquired pneumonia Is this a current diagnosis for this admission?: Yes Plan: 10/06/2019-as patient has severe penicillin allergy will place patient on Aztranam 2gm iv bid and azithromycin 500 mg iv daily. Await cultures. BiPAP at night. Oxygen supplementally. Incentive spirometry. Albuterol nebs as needed -much improved today. Continue current antibiotic therapy await cultures. BiPAP at night supplemental oxygen incentive spirometry 10/08/2019-continues to show improvement however she still has rhonchi scattered throughout. Continue current IV antibiotic therapy, supplemental oxygen incentive spirometry and BiPAP at night. 10/09/2019-patient improved but still somewhat puny at this time. Lungs have cleared out although decreased and she is slightly tachypneic. Patient is using incentive spirometry. Current antibiotic therapy continues. Will follow (2) Hypokalemia Is this a current diagnosis for this admission?: Yes Plan: 10/06/2019-potassium chloride 40 mEq p.o. times 1 repeat BMP in a.m. -stable continue to follow 10/08/2019-stable continue to follow 10/09/2019-stable at this time. (3) Cough Is this a current diagnosis for this admission?: Yes Plan: 10/06/2019-Tessalon Perles 100 mg 3 times daily. -continue Tessalon Perles 10/08/2019-continue Tessalon Perles 10/09/2019-Tessalon Perles 3 times daily as needed (4) Hypertension Is this a current diagnosis for this admission?: Yes Plan: 10/08/2019-remains elevated. I have titrated her hydralazine to 100 mg p.o. twice daily will continue to follow -remains elevated. I have added Norvasc 10 mg p.o. daily we will continue to follow - Time Time Spent with patient: 15-24 minutes - Inpatient Certification Based on my medical assessment, after consideration of the patient's comorbidities, presenting symptoms, or acuity I expect that the services needed warrant INPATIENT care.: Yes I certify that my determination is in accordance with my understanding of Medicare's requirements for reasonable and necessary INPATIENT services [42 CFR 412.3e].: Yes Medical Necessity: Need for IV Antibiotics
[2019-10-09] MEDS: OXYCODONE-ACETAMINOPHEN 5-325 MG TABLET PO PRN ×2 (12:32→21:24)
[2019-10-09] MEDS: ZOLPIDEM TARTRATE 5 MG TABLET PO PRN (21:24)
[2019-10-10] MEDS: METHYLPREDNISOLONE INJ 40 MG/1 ML SDV IV SCH ×3 (01:41→18:13)
[2019-10-10] MEDS: HEPARIN SOD (PORCINE) 5,000 UNIT/ML 1 ML VIAL SUBCUT SCH ×3 (05:14→21:21)
[2019-10-10] MEDS: AZTREONAM 2 GM in DEXTROSE 5%-WATER 100 ML IV SCH (05:53)
[2019-10-10 06:01] LABS: HEMATOCRIT 32.9 % (36.0-47.0); HEMOGLOBIN 11.1 g/dL (12.0-15.5); MEAN CORPUSCULAR HEMOGLOBIN 31.2 pg (27.0-33.4); MEAN CORPUSCULAR HGB CONC 33.6 g/dL (32.0-36.0); MEAN CORPUSCULAR VOLUME 93 fl (80-97); PLATELET COUNT 263 10^3/uL (150-450); RED BLOOD COUNT 3.55 10^6/uL (3.72-5.28); RED CELL DISTRIBUTION WIDTH 16.2 % (11.5-14.0); WHITE BLOOD COUNT 10.6 10^3/uL (4.0-10.5)
[2019-10-10 06:23] LABS: ANION GAP 6 (5-19); BLOOD UREA NITROGEN 45 mg/dL (7-20); CARBON DIOXIDE 24 mmol/L (22-30); CHLORIDE 109 mmol/L (98-107); GLUCOSE 113 mg/dL (75-110); POTASSIUM 4.2 mmol/L (3.6-5.0)
[2019-10-10] MEDS: ALBUTEROL SULFATE 0.083% NEB 2.5 MG/3 ML AMPUL NEB PRN ×2 (08:08→15:44)
--- NOTE | 2019-10-10 08:42 | PDOC PROGRESS REPORT ---
Subjective Progress Note for:: 10/10/19 Subjective:: 10/07/2019-no complaints 10/08/2019-no complaints this a.m. 10/09/2019-shortness of breath 10/10/2019-no complaints Reason For Visit: COMMUNITY ACQUIRED PNEUMONIA Physical Exam Vital Signs: Temp Pulse Resp BP Pulse Ox 97.6 F 76 20 180/59 H 90 L 10/10/19 07:23 10/10/19 07:23 10/10/19 07:23 10/10/19 07:23 10/10/19 07:23 Intake & Output 10/09/19 10/10/19 10/11/19 06:59 06:59 06:59 Intake Total 2806 2290 Output Total 3225 9665 Balance -419 -285 Weight 69 kg 70.2 kg General appearance: PRESENT: no acute distress, well-developed, well-nourished Neck exam: ABSENT: carotid bruit, JVD, lymphadenopathy, thyromegaly Respiratory exam: PRESENT: clear to auscultation meseret, decreased breath sounds, rhonchi, symmetrical, unlabored. ABSENT: rales, wheezes Cardiovascular exam: PRESENT: RRR. ABSENT: diastolic murmur, rubs, systolic murmur Pulses: PRESENT: +1 pedal pulses bilateral Vascular exam: PRESENT: normal capillary refill GI/Abdominal exam: PRESENT: normal bowel sounds, soft. ABSENT: distended, guarding, mass, organolmegaly, rebound, tenderness Extremities exam: PRESENT: full ROM. ABSENT: calf tenderness, clubbing, pedal edema Neurological exam: PRESENT: alert, awake, oriented to person, oriented to place, oriented to time, oriented to situation, CN II-XII grossly intact. ABSENT: motor sensory deficit Psychiatric exam: PRESENT: appropriate affect, normal mood. ABSENT: homicidal ideation, suicidal ideation Skin exam: PRESENT: dry, intact, warm. ABSENT: cyanosis, rash Results Laboratory Results: 10/10/19 05:21 10/10/19 05:21 10/10/19 10/10/19 05:21 05:21 WBC 10.6 H RBC 3.55 L Hgb 11.1 L Hct 32.9 L MCV 93 MCH 31.2 MCHC 33.6 RDW 16.2 H Plt Count 263 Sodium 139.0 Potassium 4.2 Chloride 109 H Carbon Dioxide 24 Anion Gap 6 BUN 45 H Creatinine 1.04 Est GFR ( Amer) > 60 Glucose 113 H Calcium 10.0 10/06/19 10/06/19 11:06 11:06 Creatine Kinase 87 CK-MB (CK-2) 1.46 Troponin I < 0.012 Impressions: Chest X-Ray 10/06/19 10:55 IMPRESSION: Bilateral interstitial airspace disease most marked in the lung bases specifically periphery of the lung bases. There appears to have been slight progression when compared to prior PET-CT dated 02/14/2019. Chest/Abdomen CTA 10/06/19 12:00 IMPRESSION: 1. Chronic bilateral upper lobe changes. 2. New bilateral pleural effusions and basilar infiltrate right greater than left. This is new from prior study. 3. No pulmonary emboli. Assessment and Plan - Diagnosis (1) Community acquired pneumonia Is this a current diagnosis for this admission?: Yes Plan: 10/06/2019-as patient has severe penicillin allergy will place patient on Aztranam 2gm iv bid and azithromycin 500 mg iv daily. Await cultures. BiPAP at night. Oxygen supplementally. Incentive spirometry. Albuterol nebs as needed -much improved today. Continue current antibiotic therapy await cultures. BiPAP at night supplemental oxygen incentive spirometry 10/08/2019-continues to show improvement however she still has rhonchi scattered throughout. Continue current IV antibiotic therapy, supplemental oxygen incentive spirometry and BiPAP at night. 10/09/2019-patient improved but still somewhat puny at this time. Lungs have cleared out although decreased and she is slightly tachypneic. Patient is using incentive spirometry. Current antibiotic therapy continues. Will follow 10/10/2019-improved. Suspect patient needs 1 more night to ensure that she will be safe at home. Continue incentive spirometer I DC'd all antibiotics except for azithromycin. Cultures are negative thus far (2) Hypokalemia Is this a current diagnosis for this admission?: Yes Plan: 10/06/2019-potassium chloride 40 mEq p.o. times 1 repeat BMP in a.m. -stable continue to follow 10/08/2019-stable continue to follow 10/09/2019-stable at this time. 10/10/2019-stable (3) Cough Is this a current diagnosis for this admission?: Yes Plan: 10/06/2019-Tessalon Perles 100 mg 3 times daily. -continue Tessalon Perles 10/08/2019-continue Tessalon Perles 10/09/2019-Tessalon Perles 3 times daily as needed 10/10/2019-continue Tessalon Perles as needed (4) Hypertension Is this a current diagnosis for this admission?: Yes Plan: 10/08/2019-remains elevated. I have titrated her hydralazine to 100 mg p.o. twice daily will continue to follow -remains elevated. I have added Norvasc 10 mg p.o. daily we will continue to follow 10/10/2019 elevated at this time but I think this is secondary to diabetes that she just received as well as a coughing spell. Will follow - Time Time Spent with patient: 15-24 minutes - Inpatient Certification Based on my medical assessment, after consideration of the patient's comorbidities, presenting symptoms, or acuity I expect that the services needed warrant INPATIENT care.: Yes I certify that my determination is in accordance with my understanding of Medicare's requirements for reasonable and necessary INPATIENT services [42 CFR 412.3e].: Yes Medical Necessity: Significant Comorbidiites Make Outpatient Treatment Too Risky, Need Close Monitoring Due to Risk of Patient Decompensation, Need for IV Antibiotics
[2019-10-10] MEDS: LEVOTHYROXINE SODIUM 0.075 MG TABLET PO SCH (10:07)
[2019-10-10] MEDS: FLUTICASONE/VILANTEROL 200-25 MCG/DOSE IH SCH (10:07)
[2019-10-10] MEDS: HYDRALAZINE HCL 50 MG TABLET PO SCH ×2 (10:08→21:21)
[2019-10-10] MEDS: MELOXICAM 15 MG TABLET PO SCH (10:08)
[2019-10-10] MEDS: FUROSEMIDE 20 MG TABLET PO SCH (10:08)
[2019-10-10] MEDS: LOSARTAN POTASSIUM 50 MG TABLET PO SCH (10:08)
[2019-10-10] MEDS: AMLODIPINE BESYLATE 10 MG TABLET PO SCH (10:08)
[2019-10-10] MEDS: AZITHROMYCIN 500 MG in DEXTROSE 5%-WATER 250 ML IV SCH (10:12)
[2019-10-10] MEDS: PANTOPRAZOLE SODIUM 40 MG VIAL IV SCH (11:55)
--- NOTE | 2019-10-10 13:44 | RADIOLOGY REPORT (SQ) ---
EXAM DESCRIPTION: CTA CHEST COMPLETED DATE/TIME: 10/10/2019 11:42 am REASON FOR STUDY: pe COMPARISON: CT angio chest 10/06/2019 PET-CT 02/14/2019 CT chest 08/21/2018 TECHNIQUE: CT scan of the chest performed using helical scanning technique with dynamic intravenous contrast injection. Images reviewed with lung, soft tissue and bone windows. Reconstructed coronal and sagittal MPR images reviewed. Additional 3 dimensional post-processing performed to develop Maximal Intensity Projection images (TN P). All images stored on PACS. All CT scanners at this facility use dose modulation, iterative reconstruction, and/or weight based d osing when appropriate to reduce radiation dose to as low as reasonably achievable (ALARA). [facility]: Dose Right [facility]: CareDose [facility]: Dose Right [facility]: Teradose 4D [facility]: VHSquared CONTRAST TYPE AND DOSE: contrast/concentration: Isovue 350.00 mg/ml; Total Contrast Delivered: 54.0 ml; Total Saline Delivered: 79.0 ml Contrast bolus optimized for the pulmonary arteries and thoracic aorta. RENAL FUNCTION: Creatinine 1.08 RADIATION DOSE: CT Rad equipment meets quality standard of care and radiation dose reduction techniq ues were employed. CTDIvol: 6.6 - 14.3 mGy. DLP: 471 mGy-cm. . LIMITATIONS: None. FINDINGS: LUNGS AND PLEURA: There is diffuse bilateral consolidation, most confluent along the poste rior right upper lobe and posterior left upper lobe near the major fissures. Overall, multifocal con solidation is stable compared to 10/06/2019, minimally progressive since 08/21/2018. No pneumothorax. No pleural effusion. AORTA AND GREAT VESSELS: No thoracic aortic aneurysm or dissection HEART: No pericardial effusion. No significant coronary artery calcifications. PULMONARY ARTERIES: No emboli visualized in the main pulmonary arteries or the segmental branches. HILAR AND MEDIASTINAL STRUCTURES: No identified masses or abnormal nodes. HARDWARE: None in the chest. UPPER ABDOMEN: No significant findings. Limited exam. THYROID AND OTHER SOFT TISSUES: No masses. No adenopathy. BONES: No acute or significant finding. 3D MIPS: Confirm above findings. OTHER: No other significant finding. IMPRESSION: No CT angio evidence of acute pulmonary emboli or thoracic aortic dissection. No change in diffuse bilateral alveolar and interstitial consolidation in both lungs compared to 09/24. Appearance is very similar compared to 08/21/2018. COMMENT: Quality ID # [id number]: Final reports with documentation of one or more dose reduction techniques (e.g., Automated exposure control, adjustment of the mA and/or kV according to patient size, use of iterative reconstruction technique) TECHNICAL DOCUMENTATION: JOB ID: [id number] [employer]- All Rights Reserved Reading location - IP/workstation name: [email or web address]
[2019-10-10] MEDS ORDERED: LORAZEPAM INJ 2 MG/1 ML VIAL IV ONE (14:45)
[2019-10-10] MEDS: OXYCODONE-ACETAMINOPHEN 5-325 MG TABLET PO PRN (19:45)
[2019-10-10] MEDS: LORAZEPAM 0.5 MG TABLET PO PRN (21:22)
[2019-10-10] MEDS: ZOLPIDEM TARTRATE 5 MG TABLET PO PRN (23:52)
[2019-10-11] MEDS: METHYLPREDNISOLONE INJ 40 MG/1 ML SDV IV SCH ×2 (02:34→09:26)
[2019-10-11] MEDS: HEPARIN SOD (PORCINE) 5,000 UNIT/ML 1 ML VIAL SUBCUT SCH (05:24)
[2019-10-11 06:16] LABS: HEMATOCRIT 31.9 % (36.0-47.0); HEMOGLOBIN 10.5 g/dL (12.0-15.5); MEAN CORPUSCULAR HEMOGLOBIN 30.4 pg (27.0-33.4); MEAN CORPUSCULAR HGB CONC 32.9 g/dL (32.0-36.0); MEAN CORPUSCULAR VOLUME 92 fl (80-97); PLATELET COUNT 257 10^3/uL (150-450); RED BLOOD COUNT 3.46 10^6/uL (3.72-5.28); RED CELL DISTRIBUTION WIDTH 16.4 % (11.5-14.0); WHITE BLOOD COUNT 11.4 10^3/uL (4.0-10.5)
[2019-10-11 06:35] LABS: ANION GAP 10 (5-19); BLOOD UREA NITROGEN 52 mg/dL (7-20); CALCIUM 9.6 mg/dL (8.4-10.2); CARBON DIOXIDE 19 mmol/L (22-30); CHLORIDE 111 mmol/L (98-107); GLUCOSE 117 mg/dL (75-110); POTASSIUM 4.3 mmol/L (3.6-5.0)
[2019-10-11] MEDS: AMLODIPINE BESYLATE 10 MG TABLET PO SCH (09:25)
[2019-10-11] MEDS: FUROSEMIDE 20 MG TABLET PO SCH (09:25)
[2019-10-11] MEDS: LORAZEPAM 0.5 MG TABLET PO PRN (09:25)
[2019-10-11] MEDS: LOSARTAN POTASSIUM 50 MG TABLET PO SCH (09:25)
[2019-10-11] MEDS: HYDRALAZINE HCL 50 MG TABLET PO SCH (09:25)
[2019-10-11] MEDS: AZITHROMYCIN 500 MG in DEXTROSE 5%-WATER 250 ML IV SCH (09:27)
[2019-10-11] MEDS: MELOXICAM 15 MG TABLET PO SCH (09:27)
[2019-10-11] MEDS: PANTOPRAZOLE SODIUM 40 MG VIAL IV SCH (09:27)
[2019-10-11] MEDS: LEVOTHYROXINE SODIUM 0.075 MG TABLET PO SCH (09:27)
[2019-10-11] MEDS: FLUTICASONE/VILANTEROL 200-25 MCG/DOSE IH SCH (09:28)
--- NOTE | 2019-10-11 10:24 | PDOC DISCHARGE SUMMARY ---
Impression - Admit/DC Date/PCP Admission Date/Primary Care Provider: 10/06/19 16:03 MELLO MIRAMONTES Discharge Date: 10/11/19 - Discharge Diagnosis (1) Community acquired pneumonia Is this a current diagnosis for this admission?: Yes (2) Hypokalemia Is this a current diagnosis for this admission?: Yes (3) Cough Is this a current diagnosis for this admission?: Yes (4) Hypertension Is this a current diagnosis for this admission?: Yes (6) Anxiety Is this a current diagnosis for this admission?: Yes - Additional Information Resuscitation Status: Full Code Discharge Diet: As Tolerated Discharge Activity: Activity As Tolerated Referrals: JOE SIM MD [ACTIVE STAFF] - Follow up as needed Prescriptions: Hydralazine HCl [Apresoline 50 mg Tablet] 50 mg PO Q12 #60 Azithromycin 500 mg PO DAILY #3 tablet Amlodipine Besylate [Norvasc 10 mg Tablet] 10 mg PO DAILY #30 tablet Benzonatate [Tessalon Perles 100 mg Capsule] 100 mg PO TIDP PRN #30 capsule PRN Reason: Home Medications: Albuterol Sulfate [Proair HFA Inhalation Aerosol 8.5 gm MDI] 2 puff IH Q4HP PRN 10/06/19 Albuterol Sulfate [Ventolin 0.083% Neb 2.5 mg/3 mL Ampul] 1 vial NEB Q6HP PRN 10/06/19 Budesonide/Formoterol Fumarate [Symbicort HFA 160-4.5 mcg Inhaler 6 gm] 2 puff IH Q12 10/06/19 Cholecalciferol (Vitamin D3) [Vitamin D3 3000 unit Tablet] 3,000 unit PO DAILY 10/06/19 Dexlansoprazole [Dexilant 60 mg Capsule] 60 mg PO DAILY 10/06/19 Furosemide [Lasix 20 mg Tablet] 20 mg PO QAM 10/06/19 Hydrocodone Bit/Acetaminophen [Hydrocodon-Acetaminophn 10-325] 1 tab PO DAILYP PRN 10/06/19 Levothyroxine Sodium 75 mcg PO DAILY 10/06/19 Losartan Potassium [Cozaar 100 mg Tablet] 100 mg PO DAILY 10/06/19 Meloxicam [Mobic] 15 mg PO DAILY 10/06/19 Multivitamin [One-Daily Multi-Vitamin] 1 tab PO DAILY 10/06/19 Ondansetron HCl [Zofran 8 mg Tablet] 8 mg PO DAILYP PRN 10/06/19 Tiotropium Mabie [Spiriva Respimat] 2 puff IH DAILY 10/06/19 Amlodipine Besylate [Norvasc 10 mg Tablet] 10 mg PO DAILY #30 tablet 10/11/19 Azithromycin 500 mg PO DAILY #3 tablet 10/11/19 Benzonatate [Tessalon Perles 100 mg Capsule] 100 mg PO TIDP PRN #30 capsule 10/11/19 Hydralazine HCl [Apresoline 50 mg Tablet] 50 mg PO Q12 #60 10/11/19 History of Present Illiness History of Present Illness: ABDIAZIZ BULLARD is a 79 year old female who presented to the ER via EMS with shortness of breath. Patient states she been having lung pain for several days prior to her admission. Patient discharged home O2 oxygen saturation has been in the low 80s. Patient had no treatment prior to arrival all active is been aggravating factor. Hospital Course Hospital Course: Patient was admitted to medical surgical floor treated with IV antibiotics, steroids bronchial dilators. Patient was also instructed use incentive spirometry. Patient is shown gradual improvement over the course of her stay however patient does have severe anxiety. I believe this anxiety is led to most of her complications throughout this hospitalization. Patient's been sent home this morning with azithromycin 500 mg p.o. daily x3 days, hydralazine 50 mg p.o. every 12, Norvasc 10 mg p.o. daily and clonazepam 0.5 mg p.o. every 6 hours. #15 with no refills. Patient follow-up with her primary care practitioner for further evaluation and treatment. Patient has been advised to return to the ER if she had any further complaints or concerns. Physical Exam Vital Signs: Temp Pulse Resp BP Pulse Ox 98.2 F 98 20 178/52 H 91 L 10/11/19 08:22 10/11/19 08:22 10/11/19 08:22 10/11/19 09:13 10/11/19 08:22 Intake & Output 10/10/19 10/11/19 10/12/19 06:59 06:59 06:59 Intake Total 2290 1410 Output Total 2575 2500 Balance -285 -1090 Weight 70.2 kg 70.6 kg General appearance: PRESENT: no acute distress, well-developed, well-nourished Head exam: PRESENT: atraumatic, normocephalic Eye exam: PRESENT: conjunctiva pink, EOMI, PERRLA. ABSENT: scleral icterus Ear exam: PRESENT: normal external ear exam Mouth exam: PRESENT: moist, tongue midline Neck exam: ABSENT: carotid bruit, JVD, lymphadenopathy, thyromegaly Respiratory exam: PRESENT: clear to auscultation meseret. ABSENT: rales, rhonchi, wheezes Cardiovascular exam: PRESENT: RRR. ABSENT: diastolic murmur, rubs, systolic murmur Pulses: PRESENT: normal dorsalis pedis pul Vascular exam: PRESENT: normal capillary refill GI/Abdominal exam: PRESENT: normal bowel sounds, soft. ABSENT: distended, guarding, mass, organolmegaly, rebound, tenderness Rectal exam: PRESENT: deferred Extremities exam: PRESENT: full ROM. ABSENT: calf tenderness, clubbing, pedal edema Neurological exam: PRESENT: alert, awake, oriented to person, oriented to place, oriented to time, oriented to situation, CN II-XII grossly intact. ABSENT: motor sensory deficit Psychiatric exam: PRESENT: appropriate affect, normal mood. ABSENT: homicidal ideation, suicidal ideation Skin exam: PRESENT: dry, intact, warm. ABSENT: cyanosis, rash Results Laboratory Results: WBC 11.4 10^3/uL (4.0-10.5) H 10/11/19 05:00 RBC 3.46 10^6/uL (3.72-5.28) L 10/11/19 05:00 Hgb 10.5 g/dL (12.0-15.5) L 10/11/19 05:00 Hct 31.9 % (36.0-47.0) L 10/11/19 05:00 MCV 92 fl (80-97) 10/11/19 05:00 MCH 30.4 pg (27.0-33.4) 10/11/19 05:00 MCHC 32.9 g/dL (32.0-36.0) 10/11/19 05:00 RDW 16.4 % (11.5-14.0) H 10/11/19 05:00 Plt Count 257 10^3/uL (150-450) 10/11/19 05:00 Lymph % (Auto) 22.8 % (13-45) 10/06/19 11:06 [place] % (Auto) 8.3 % (3-13) 10/06/19 11:06 Eos % (Auto) 2.6 % (0-6) 10/06/19 11:06 Baso % (Auto) 0.9 % (0-2) 10/06/19 11:06 Absolute Neuts (auto) 3.9 10^3/uL (1.7-8.2) 10/06/19 11:06 Absolute Lymphs (auto) 1.4 10^3/uL (0.5-4.7) 10/06/19 11:06 Absolute Monos (auto) 0.5 10^3/uL (0.1-1.4) 10/06/19 11:06 Absolute Eos (auto) 0.2 10^3/uL (0.0-0.6) 10/06/19 11:06 Absolute Basos (auto) 0.1 10^3/uL (0.0-0.2) 10/06/19 11:06 Seg Neutrophils % 65.4 % (42-78) 10/06/19 11:06 Sodium 140.1 mmol/L (137-145) 10/11/19 05:00 Potassium 4.3 mmol/L (3.6-5.0) 10/11/19 05:00 Chloride 111 mmol/L (98-107) H 10/11/19 05:00 Carbon Dioxide 19 mmol/L (22-30) L 10/11/19 05:00 Anion Gap 10 (5-19) 10/11/19 05:00 BUN 52 mg/dL (7-20) H 10/11/19 05:00 Creatinine 1.15 mg/dL (0.52-1.25) 10/11/19 05:00 Est GFR ( Amer) 55 (>60) L 10/11/19 05:00 Est GFR (MDRD) Non-Af 45 (>60) L 10/11/19 05:00 Glucose 117 mg/dL (75-110) H 10/11/19 05:00 Lactic Acid 1.9 mmol/L (0.7-2.1) 10/06/19 11:06 Calcium 9.6 mg/dL (8.4-10.2) 10/11/19 05:00 Phosphorus 5.0 mg/dL (2.5-4.5) H 10/07/19 05:53 Magnesium 2.0 mg/dL (1.6-2.3) 10/07/19 05:53 Total Bilirubin 0.9 mg/dL (0.2-1.3) 10/06/19 11:06 Direct Bilirubin 0.4 mg/dL (0.0-0.4) 10/06/19 11:06 Neonat Total Bilirubin Not Reportable 10/06/19 11:06 Neonat Direct Bilirubin Not Reportable 10/06/19 11:06 Neonat Indirect Bili Not Reportable 10/06/19 11:06 AST 63 U/L (14-36) H 10/06/19 11:06 ALT 17 U/L (<35) 10/06/19 11:06 Alkaline Phosphatase 103 U/L (38-126) 10/06/19 11:06 Creatine Kinase 87 U/L (30-135) 10/06/19 11:06 CK-MB (CK-2) 1.46 ng/mL (<4.55) 10/06/19 11:06 Troponin I < 0.012 ng/mL 10/06/19 11:06 Total Protein 7.7 g/dL (6.3-8.2) 10/06/19 11:06 Albumin 4.2 g/dL (3.5-5.0) 10/06/19 11:06 TSH 1.69 uIU/mL (0.47-4.68) 10/06/19 11:06 Urine Color STRAW 10/06/19 11:55 Urine Appearance CLEAR 10/06/19 11:55 Urine pH 9.0 (5.0-9.0) 10/06/19 11:55 Ur Specific [place] 1.009 10/06/19 11:55 Urine Protein NEGATIVE mg/dL (NEGATIVE) 10/06/19 11:55 Urine Glucose (UA) NEGATIVE mg/dL (NEGATIVE) 10/06/19 11:55 Urine Ketones NEGATIVE mg/dL (NEGATIVE) 10/06/19 11:55 Urine Blood NEGATIVE (NEGATIVE) 10/06/19 11:55 Urine Nitrite NEGATIVE (NEGATIVE) 10/06/19 11:55 Urine Bilirubin NEGATIVE (NEGATIVE) 10/06/19 11:55 Urine Urobilinogen NEGATIVE mg/dL (<2.0) 10/06/19 11:55 Ur Leukocyte Esterase NEGATIVE (NEGATIVE) 10/06/19 11:55 Urine WBC (Auto) 1 /HPF 10/06/19 11:55 Urine RBC (Auto) 1 /HPF 10/06/19 11:55 Squamous Epi Cells Auto <1 /HPF 10/06/19 11:55 Urine Ascorbic Acid NEGATIVE (NEGATIVE) 10/06/19 11:55 10/06/19 11:06 CK-MB (CK-2) 1.46 Troponin I < 0.012 Impressions: Chest X-Ray 10/06/19 10:55 IMPRESSION: Bilateral interstitial airspace disease most marked in the lung bases specifically periphery of the lung bases. There appears to have been slight progression when compared to prior PET-CT dated 02/14/2019. Chest/Abdomen CTA 10/06/19 12:00 IMPRESSION: 1. Chronic bilateral upper lobe changes. 2. New bilateral pleural effusions and basilar infiltrate right greater than left. This is new from prior study. 3. No pulmonary emboli. Chest/Abdomen CTA 10/10/19 00:00 IMPRESSION: No CT angio evidence of acute pulmonary emboli or thoracic aortic dissection. No change in diffuse bilateral alveolar and interstitial consolidation in both lungs compared to 10/06/2019. Appearance is very similar compared to 08/21/2018. Plan Time Spent: Greater than 30 Minutes Stroke Is this a Stroke Patient?: No Acute Heart Failure - Is this a Heart Failure Patient?: No
[2019-10-11] MEDS: ALBUTEROL SULFATE 0.083% NEB 2.5 MG/3 ML AMPUL NEB PRN (10:36)
[2019-10-11 12:55] VITALS: BP 140/97
== END 2019-10-11 13:45 | disposition home or self-care (01) | DRG 195 ==
LOC: ER 10:53 → EH 16:03 → 5 17:29
PROVIDERS: ADMIT Hospitalist; ATTEND Hospitalist
PROC: 5A09557 Assistance with Respiratory Ventilation, Greater than 96 Consecutive Hours, Continuous Positive Airway Pressure (ICD-10-PCS; principal; 2019-10-06)
DX: J18.9 Pneumonia, unspecified organism (principal); E87.6 Hypokalemia; F41.9 Anxiety disorder, unspecified; I10 Essential (primary) hypertension; J45.909 Unspecified asthma, uncomplicated; M19.90 Unspecified osteoarthritis, unspecified site; Z88.0 Allergy status to penicillin; Z90.49 Acquired absence of other specified parts of digestive tract; Z79.51 Long term (current) use of inhaled steroids; Z90.710 Acquired absence of both cervix and uterus; Z79.899 Other long term (current) drug therapy; Z87.891 Personal history of nicotine dependence; Z88.1 Allergy status to other antibiotic agents
CPT/HCPCS: 36415; 51702; 71045; 71275; 80048; 80053; 81001; 82550; 82553; 83605; 83735; 84100; 84443; 84484; 85025; 85027; 87040; 93005; 93010; 94640; 94660; 96365; 99291; C9113; J0456; J1644; J2060; J2920; J3490; J7030; J7060; J7512; J7620

== ENCOUNTER 2019-10-13 13:20 | Inpatient (IN) | payer MEDICARE, MEDICAID ==
[2019-10-13] MEDS ORDERED: AZTREONAM INJ 1 GM VIAL IV ONE (13:35)
--- NOTE | 2019-10-13 13:37 | ER Document Report ---
ED Respiratory Problem - General Chief Complaint: Shortness Of Breath Stated Complaint: DIFFICULTY BREATHING Time Seen by Provider: 10/13/19 13:32 Mode of Arrival: Medic Notes: Ms. Elkins is a 79 yo f w/ PMH hypertension, hypothyroidism, CHF and COPD brought in by EMS for being unresponsive. Per EMS, the patient daughter called this morning and spoke to her and the patient seemed fine. However when she attempted to call this afternoon, the patient did not grape picker. It was recommended to the patient's daughter to call police versus fire for a well check. When they did so, they found the patient on the ground barely responsive and only able to mumble words. Patient was brought in by EMS being bagged as she was found hypoxic to mid 70s. Patient's ETCO2 was continued with a respiratory rate of 7 therefore EMS supported her breathing with bagging her. Daughter, later presented to the ED, provided further history. She stated that the patient was just discharged 2 days earlier after being diagnosed with pneumonia. She felt that she was discharged far too early and the patient was significantly weak when she was brought home. She states that the patient was barely able to walk 10 to 15 feet from the car to the front door and needed to pause at least 6 times to catch her breath. TRAVEL OUTSIDE OF THE [place] IN LAST 30 DAYS: No - Related Data Allergies/Adverse Reactions: Penicillins Allergy (Severe, Verified 10/13/19 17:57) RESP DISTRESS vancomycin [Vancomycin] Allergy (Severe, Verified 10/13/19 17:57) SEVERE ITCHING Past Medical History - Social History Smoking Status: Former Smoker Family History: Reviewed & Not Pertinent, COPD, Hypertension - Past Medical History Cardiac Medical History: Reports: Hx Hypertension - MEDICATED Denies: Hx Coronary Artery Disease, Hx Heart Attack Pulmonary Medical History: Reports: Hx Asthma - MEDICATED DAILY/NO HOSPITALIZATION, Hx Pneumonia - currently dx Denies: Hx Bronchitis, Hx COPD Neurological Medical History: Denies: Hx Cerebrovascular Accident, Hx Seizures Renal/ Medical History: Denies: Hx Peritoneal Dialysis GI Medical History: Denies: Hx Hepatitis, Hx Hiatal Hernia, Hx Ulcer Musculoskeletal Medical History: Reports Hx Arthritis - mild throughout Infectious Medical History: Denies: Hx Hepatitis Past Surgical History: Reports: Hx Appendectomy, Hx Hysterectomy. Denies: Hx Mastectomy, Hx Open Heart Surgery, Hx Pacemaker - Immunizations Hx Diphtheria, Pertussis, Tetanus Vaccination: Yes Hx Pneumococcal Vaccination: 10/13/17 Review of Systems - Review of Systems -: Yes ROS unobtainable due to patient's medical condition Constitutional: See HPI Physical Exam - Vital signs Vitals: Temp Resp 99.4 F 11 L 10/13/19 13:22 10/13/19 13:22 Interpretation: Hypoxic, Febrile, Other - Bradypneic - General General appearance: Lethargic In distress: Severe - HEENT Head: Normocephalic, Atraumatic Eyes: Normal Pupils: PERRL Mucous membranes: Dry - Respiratory Respiratory status: Respiratory distress, Labored, Retractions Chest status: Nontender Breath sounds: Rales, Rhonchi, Wheezing Chest palpation: Normal - Cardiovascular Rhythm: Regular Heart sounds: Normal auscultation Murmur: No - Abdominal Inspection: Normal Distension: No distension Bowel sounds: Normal Tenderness: Nontender Organomegaly: No organomegaly - Back Back: Normal, Nontender - Extremities General upper extremity: Normal inspection, Nontender, Normal color, Normal ROM, Normal temperature General lower extremity: Normal inspection, Nontender, Normal color, Normal ROM, Normal temperature, Normal weight bearing. No: Sofi's sign - Neurological Neuro grossly intact: Yes Cognition: Normal Orientation: AAOx4 Jimmie Coma Scale Eye Opening: Spontaneous Jimmie Coma Scale Verbal: Oriented [place] Coma Scale Motor: Obeys Commands Jimmie Coma Scale Total: 15 Speech: Normal Motor strength normal: LUE, RUE, LLE, RLE Sensory: Normal - Psychological Associated symptoms: Normal affect, Normal mood - Skin Skin Temperature: Warm Skin Moisture: Dry Skin Color: Normal Course - Re-evaluation Re-evalutation: She is ill-appearing toxic. Initial vitals notable for low-grade temp, hypoxia and tachycardia. Concern for sepsis. Differential diagnosis includes sepsis, pneumonia, UTI, acute respiratory failure. 2 sets of blood cultures were obtained. Patient was not initially ordered for IV fluids as goals were auscultated bilaterally. Patient has anaphylactic allergy to penicillin so she was ordered for aztreonam 2 g as this was given on previous admission. Patient was initially placed on nonrebreather as well as given duo nebs. Labs notable for significant leukocytosis with a left shift. Elevated BUN to creatinine ratio consistent with dehydration. No significant lactic acidosis at this point in time. Chest x-ray shows obvious and worsening pneumonia. She can transition to high flow oxygen. 10/13/19 16:[address] Hanna. Patient will go to [place]. 10/13/19 16:35 Patient actually on nasal high flow at 45 L blended with 50% FiO2. Respiratory called to the bedside. Patient still satting at 100% and will be decreased for goal saturation greater than 95% 10/13/19 16:55 Per daughter, the patient was actually just discharged from the hospital 2 days ago for pneumonia after spending 5 days in the hospital. When they took the patient home, she states that the front door in the cards approximately 10 to 15 feet apart and they had to stop at least 5 times. Her mom seemed significantly weak although she thought it was just because she was deconditioned from being in the hospital. Today when she did not answer the phone, she became acutely concerned and sent the police/fire department over for a while check. - Vital Signs Vital signs: Temp Pulse Resp BP Pulse Ox 99.7 F 71 20 120/53 L 93 10/15/19 02:02 10/15/19 02:08 10/15/19 02:08 10/15/19 02:02 10/15/19 02:08 - Laboratory Result Diagrams: 10/14/19 05:38 10/14/19 19:58 Laboratory results interpreted by me: 10/13/19 10/13/19 10/13/19 13:25 13:25 13:25 WBC 22.5 H RBC 3.22 L Hgb 9.9 L Hct 30.1 L RDW 16.7 H Seg Neuts % (Manual) 91 H Lymphocytes % (Manual) 6 L Monocytes % (Manual) 0 L Abs Neuts (Manual) 21.2 H Abs Monocytes (Manual) 0.0 L Carbonic Acid ABG pCO2 ABG pO2 Chloride 109 H BUN 66 H Creatinine 1.31 H Est GFR ( Amer) 47 L Est GFR (MDRD) Non-Af 39 L AST 66 H NT-Pro-B Natriuret Pep 3020 H Total Protein 5.8 L Albumin 3.1 L Urine Blood Leukocyte Esterase Rfl 10/13/19 10/13/19 13:57 15:42 WBC RBC Hgb Hct RDW Seg Neuts % (Manual) Lymphocytes % (Manual) Monocytes % (Manual) Abs Neuts (Manual) Abs Monocytes (Manual) Carbonic Acid 1.02 L ABG pCO2 33.9 L ABG pO2 73.6 L Chloride BUN Creatinine Est GFR ( Amer) Est GFR (MDRD) Non-Af AST NT-Pro-B Natriuret Pep Total Protein Albumin Urine Blood MODERATE H Leukocyte Esterase Rfl TRACE H Critical Care Note - Critical Care Note Total time excluding time spent on procedures (mins): 60 - Multiple reassessments, consideration of intubation, sepsis, significant leukocytosis, requiring high-flow O2 Discharge - Discharge Clinical Impression: Hospital acquired PNA, Sepsis, Hypoxemia, Dehydration, Acute respiratory failure, Leukocytosis Condition: Fair Disposition: ADMITTED INPATIENT Admitting Provider: [facility] Admitted: [facility]
[2019-10-13 13:41] LABS: HEMATOCRIT 30.1 % (36.0-47.0); HEMOGLOBIN 9.9 g/dL (12.0-15.5); MEAN CORPUSCULAR HEMOGLOBIN 30.8 pg (27.0-33.4); MEAN CORPUSCULAR HGB CONC 32.9 g/dL (32.0-36.0); MEAN CORPUSCULAR VOLUME 93 fl (80-97); PLATELET COUNT 279 10^3/uL (150-450); RED BLOOD COUNT 3.22 10^6/uL (3.72-5.28); RED CELL DISTRIBUTION WIDTH 16.7 % (11.5-14.0); WHITE BLOOD COUNT 22.5 10^3/uL (4.0-10.5)
--- NOTE | 2019-10-13 13:41 | EKG REPORT ---
SEVERITY:- ABNORMAL ECG - SINUS RHYTHM LEFT ATRIAL ABNORMALITY MINIMAL ST DEPRESSION, ANTEROLATERAL LEADS : Confirmed by: Rajendra Sparks MD 13-Oct-2019 13:40:25
[2019-10-13 13:47] LABS: INTERNATIONAL RATION (INR) 1.09; PROTHROMBIN TIME 14.1 SEC (11.4-15.4)
[2019-10-13 14:03] LABS: ARTERIAL BLOOD BASE EXCESS -2.4 mmol/L; ARTERIAL BLOOD H2CO3 1.02 mmol/L (1.05-1.35); ARTERIAL BLOOD HCO3 21.5 mmol/L (20-24); ARTERIAL BLOOD O2 SATURATION 95.2 % (94-98); ARTERIAL BLOOD PCO2 33.9 mmHg (35-45); ARTERIAL BLOOD PH 7.42 (7.35-7.45); ARTERIAL BLOOD PO2 73.6 mmHg (80-100); ARTERIAL BLOOD TOTAL CO2 22.5 mmol/L (21-25)
[2019-10-13 14:04] LABS: ARTERIAL BLOOD FIO2 100%
[2019-10-13 14:05] LABS: ALBUMIN 3.1 g/dL (3.5-5.0); ALKALINE PHOSPHATASE 71 U/L (38-126); ANION GAP 9 (5-19); ASPARTATE AMINO TRANSFERASE 66 U/L (14-36); BILIRUBIN,DIRECT 0.2 mg/dL (0.0-0.4); BILIRUBIN,TOTAL 0.7 mg/dL (0.2-1.3); BLOOD UREA NITROGEN 66 mg/dL (7-20); CALCIUM 9.4 mg/dL (8.4-10.2); CARBON DIOXIDE 23 mmol/L (22-30); CHLORIDE 109 mmol/L (98-107); GLUCOSE 109 mg/dL (75-110); POTASSIUM 4.1 mmol/L (3.6-5.0); TOTAL PROTEIN 5.8 g/dL (6.3-8.2)
[2019-10-13 14:16] LABS: ABSOLUTE LYMPHOCYTES# (MANUAL) 1.4 10^3/uL (0.5-4.7); BAND NEUTROPHILS % (MANUAL) 3 % (3-5); BASOPHILS % (MANUAL) 0 % (0-2); EOSINOPHILS % (MANUAL) 0 % (0-6); LYMPHOCYTES % (MANUAL) 6 % (13-45); MONOCYTES % (MANUAL) 0 % (3-13); SEGMENTED NEUTROPHILS % (MAN) 91 % (42-78); TOTAL CELLS COUNTED 100
[2019-10-13 14:19] LABS: ANISOCYTOSIS 1+; PLATELET COMMENT ADEQUATE; PLATELET GIANT PRESENT; POLYCHROMASIA SLIGHT; TOXIC GRANULATION SLIGHT
--- NOTE | 2019-10-13 14:32 | RADIOLOGY REPORT (SQ) ---
EXAM DESCRIPTION: CHEST SINGLE VIEW COMPLETED DATE/TIME: 10/13/2019 1:51 pm REASON FOR STUDY: t2 sepsis protocol COMPARISON: None. EXAM PARAMETERS: NUMBER OF VIEWS: AP view of the chest from 10/06/2019 TECHNIQUE: Single frontal radiographic view of the chest acquired. RADIATION DOSE: NA LIMITATIONS: None. FINDINGS: LUNGS AND PLEURA: Increased bilateral basilar predominant interstitial and alveolar opacit ies. The right costophrenic sulcus is blunted. There is no pneumothorax. MEDIASTINUM AND HILAR STRUCTURES: Stable mediastinal and hilar contours. HEART AND VASCULAR STRUCTURES: Stable cardiac silhouette. BONES: No acute findings. HARDWARE: None in the chest. OTHER: No other finding. IMPRESSION: Increased bilateral basilar predominant interstitial and alveolar opacities. TECHNICAL DOCUMENTATION: JOB ID: [id number] [employer]- All Rights Reserved Reading location - IP/workstation name: [email or web address]
--- NOTE | 2019-10-13 14:38 | RADIOLOGY REPORT (SQ) ---
EXAM DESCRIPTION: CT HEAD WITHOUT COMPLETED DATE/TIME: 10/13/2019 2:07 pm REASON FOR STUDY: ams, found on ground, unresponsive COMPARISON: None. TECHNIQUE: Axial images acquired through the brain without intravenous contrast. Images reviewed wi th bone, brain and subdural windows. Additional sagittal and coronal reconstructions were generated. Images stored on PACS. All CT scanners at this facility use dose modulation, iterative reconstruction, and/or weight based d osing when appropriate to reduce radiation dose to as low as reasonably achievable (ALARA). [facility]: Dose Right [facility]: CareDose [facility]: Dose Right [facility]: Teradose 4D [facility]: [employer] RADIATION DOSE: CT Rad equipment meets quality standard of care and radiation dose reduction techniq ues were employed. CTDIvol: 53.2 mGy. DLP: 1124 mGy-cm. mGy. LIMITATIONS: None. FINDINGS: There is diffuse, age-appropriate cerebral and cerebellar volume loss. The caliber of the ventricles is concordant with the degree of sulcation. There is no acute intracranial hemorrhage, v ascular territorial infarct, extra-axial fluid collection, mass effect or midline shift. There is no effacement of the cerebral sulci or basal subarachnoid cisterns. The saucedo-white matter differentiat ion is preserved. The orbits are intact. The globes are aphakic. The paranasal sinuses and the mastoid clear. There is no fracture of the calvarium. IMPRESSION: No acute intracranial abnormality. EVIDENCE OF ACUTE STROKE: NO. COMMENT: Quality ID # [id number]: Final reports with documentation of one or more dose reduction techniques (e.g., Automated exposure control, adjustment of the mA and/or kV according to patient size, use of iterative reconstruction technique) TECHNICAL DOCUMENTATION: JOB ID: [id number] [employer]- All Rights Reserved Reading location - IP/workstation name: [email or web address]
--- NOTE | 2019-10-13 14:48 | RADIOLOGY REPORT (SQ) ---
EXAM DESCRIPTION: CT CERVICAL SPINE WITHOUT COMPLETED DATE/TIME: 10/13/2019 2:07 pm REASON FOR STUDY: ams, found on ground, unresponsive COMPARISON: None. TECHNIQUE: Axial images acquired through the cervical spine without intravenous contrast. Images re viewed with lung, soft tissue and bone windows. Reconstructed coronal and sagittal MPR images review ed. Images stored on PACS. All CT scanners at this facility use dose modulation, iterative reconstruction, and/or weight based d osing when appropriate to reduce radiation dose to as low as reasonably achievable (ALARA). [facility]: Dose Right [facility]: CareDose [facility]: Dose Right [facility]: Teradose 4D [facility]: [employer] RADIATION DOSE: CT Rad equipment meets quality standard of care and radiation dose reduction techniq ues were employed. CTDIvol: 18.6 mGy. DLP: 335 mGy-cm. mGy. LIMITATIONS: None. FINDINGS: ALIGNMENT: There is reversal of the normal lordotic curvature of the cervical spine with g rade 1 anterolisthesis of C3 relative to C4, C4 relative to C5, C6 relative to C7, and C7 relative to T1. There is no craniocervical or atlantoaxial dissociation. MINERALIZATION: Normal. VERTEBRAL BODIES: The cervical vertebral body heights are preserved. DISCS: The intervertebral discs from C3-C4 to C7-T1 are narrowed. 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 These findin gs in combination with a posterior disc osteophyte complex result in circumferential narrowing of the spinal canal at C5-C6. FACETS, LATERAL MASSES, POSTERIOR ELEMENTS: There is advanced facet joint arthropathy and uncovertebr al hypertrophy that results in varying degrees of multilevel moderate to severe osteophytic foraminal stenosis. There is ossification of the interspinous ligament at C7-T1. HARDWARE: None in the spine. VISUALIZED RIBS: No fractures. LUNG APICES AND SOFT TISSUES: The appearance of the right upper lobe is unchanged from 10/10/2019. OTHER: No other finding. IMPRESSION: No acute fracture or malalignment of the cervical spine. Other degenerative findings as detailed above. TECHNICAL DOCUMENTATION: JOB ID: [id number] Quality ID # [id number]: Final reports with documentation of one or more dose reduction techniques (e.g., Au tomated exposure control, adjustment of the mA and/or kV according to patient size, use of iterative reconstruction technique) 2010 [employer]- All Rights Reserved Reading location - IP/workstation name: [email or web address]
[2019-10-13 16:02] LABS: APPEARANCE,URINE CLEAR; BILIRUBIN,URINE NEGATIVE (NEGATIVE); COLOR,URINE YELLOW; GLUCOSE, URINE NEGATIVE (NEGATIVE); KETONES,URINE NEGATIVE (NEGATIVE); PROTEIN,URINE NEGATIVE (NEGATIVE); UROBILINOGEN,URINE NEGATIVE mg/dL (<2.0)
[2019-10-13] MEDS ORDERED: NORMAL SALINE 1000 ML 1,000 ML IV ONE (16:36)
[2019-10-13] MEDS ORDERED: ACETAMINOPHEN 325 MG TABLET PO PRN (18:02)
[2019-10-13] MEDS ORDERED: GUAIFENESIN SYRP 200 MG/10 ML UDC PO PRN (18:02)
[2019-10-13] MEDS ORDERED: ALBUTEROL SULFATE 0.083% NEB 2.5 MG/3 ML AMPUL NEB PRN (18:02)
[2019-10-13 19:05] LABS: ARTERIAL BLOOD BASE EXCESS -4.1 mmol/L; ARTERIAL BLOOD FIO2 40%; ARTERIAL BLOOD H2CO3 0.86 mmol/L (1.05-1.35); ARTERIAL BLOOD HCO3 19.1 mmol/L (20-24); ARTERIAL BLOOD O2 SATURATION 89.4 % (94-98); ARTERIAL BLOOD PCO2 28.7 mmHg (35-45); ARTERIAL BLOOD PH 7.44 (7.35-7.45); ARTERIAL BLOOD PO2 53.1 mmHg (80-100)
--- NOTE | 2019-10-13 19:15 | PDOC H&P ---
History of Present Illness Admission Date/PCP: 10/13/19 16:56 MELLO MIRAMONTES Patient complains of: dyspnea History of Present Illness: ABDIAZIZ BULLARD is a 79 year old female with the past medical history significant for hypertension, asthma, lung cancer, hypothyroidism, GERD, and opiate dependent chronic pain who was discharged from our facility 2 days ago with home O2 (new to the patient) following 5-day treatment for community- acquired pneumonia. Patient arrived to the emergency department via EMS today; welfare check by law enforcement when patient did not answer multiple phone calls by her children this morning found that the patient was altered, hypoxic on room air with O2 saturation in the mid 70s, and irregular breathing. She received high flow oxygen and BVM support briefly in the field but did not require intubation. She is now maintaining oxygen saturations on high flow nasal cannula with FiO2 of 40%. Further evaluation in the emergency department revealed leukocytosis with WBC of 22.5, baseline anemia with hemoglobin 9.9, normal coags, compensated respiratory alkalosis with hypoxia while on nonrebreather, mild JAZMYNE with creatinine of 1.31 and BUN of 66, proBNP of 3000 (no prior studies), and chest x-ray demonstrating worsening pneumonia. Due to the patient's allergies to penicillin vancomycin she was provided Azactam and referred to the hospitalist service for admission and management of healthcare associated pneumonia. Past Medical History Cardiac Medical History: Reports: Hypertension Denies: Coronary Artery Disease, Myocardial Infarction Pulmonary Medical History: Reports: Asthma, Pneumonia, Respiratory Failure - Chronic; home O2 dependent, Other Denies: Bronchitis, Chronic Obstructive Pulmonary Disease (COPD) Neurological Medical History: Denies: Ischemic CVA, Seizures Endocrine Medical History: Reports: Diabetes Mellitus Type 2 Malignancy Medical History: Reports: Lung Cancer - Remote GI Medical History: Reports: Gastroesophageal Reflux Disease Denies: Hepatitis, Hiatal Hernia Musculoskeltal Medical History: Reports: Arthritis Psychiatric Medical History: Reports: None Hematology: Denies: Anemia, Sickle Cell Disease Past Surgical History Past Surgical History: Reports: Appendectomy, Hysterectomy Denies: Amputation, Mastectomy, Pacemaker Social History Information Source: Patient Lives with: Alone Smoking Status: Former Smoker Electronic Cigarette use?: No Frequency of Alcohol Use: None Hx Recreational Drug Use: No Drugs: None Hx Prescription Drug Abuse: No - Advance Directive Resuscitation Status: Full Code Surrogate healthcare decision maker:: The patient's daughter, Mayi Abraham, Family History Family History: COPD, Hypertension Parental Family History Reviewed: Yes Children Family History Reviewed: Yes Sibling(s) Family History Reviewed.: Unknown Medication/Allergy Home Medications: Albuterol Sulfate [Proair HFA Inhalation Aerosol 8.5 gm MDI] 2 puff IH Q4HP PRN 10/06/19 Albuterol Sulfate [Ventolin 0.083% Neb 2.5 mg/3 mL Ampul] 1 vial NEB Q6HP PRN 10/06/19 Budesonide/Formoterol Fumarate [Symbicort HFA 160-4.5 mcg Inhaler 6 gm] 2 puff IH Q12 10/06/19 Cholecalciferol (Vitamin D3) [Vitamin D3 3000 unit Tablet] 3,000 unit PO DAILY 10/06/19 Dexlansoprazole [Dexilant 60 mg Capsule] 60 mg PO DAILY 10/06/19 Furosemide [Lasix 20 mg Tablet] 20 mg PO QAM 10/06/19 Hydrocodone Bit/Acetaminophen [Hydrocodon-Acetaminophn 10-325] 1 tab PO DAILYP PRN 10/06/19 Levothyroxine Sodium 75 mcg PO DAILY 10/06/19 Losartan Potassium [Cozaar 100 mg Tablet] 100 mg PO DAILY 10/06/19 Meloxicam [Mobic] 15 mg PO DAILY 10/06/19 Multivitamin [One-Daily Multi-Vitamin] 1 tab PO DAILY 10/06/19 Ondansetron HCl [Zofran 8 mg Tablet] 8 mg PO DAILYP PRN 10/06/19 Tiotropium Gilman [Spiriva Respimat] 2 puff IH DAILY 10/06/19 Amlodipine Besylate [Norvasc 10 mg Tablet] 10 mg PO DAILY #30 tablet 10/11/19 Azithromycin 500 mg PO DAILY #3 tablet 10/11/19 Benzonatate [Tessalon Perles 100 mg Capsule] 100 mg PO TIDP PRN #30 capsule 10/11/19 Clonazepam 0.5 mg PO Q6HP PRN #15 tablet 10/11/19 Hydralazine HCl [Apresoline 50 mg Tablet] 50 mg PO Q12 #60 10/11/19 Allergies/Adverse Reactions: Penicillins Allergy (Severe, Verified 10/13/19 17:57) RESP DISTRESS vancomycin [Vancomycin] Allergy (Severe, Verified 10/13/19 17:57) SEVERE ITCHING Review of Systems ROS unobtainable: Due to mental status Physical Exam Vital Signs: Temp Pulse Resp BP Pulse Ox 99.9 F 22 H 128/53 H 95 10/13/19 18:08 10/13/19 18:01 10/13/19 18:01 10/13/19 18:08 Intake & Output 10/12/19 10/13/19 10/14/19 06:59 06:59 06:59 Output Total 400 Balance -400 Weight 70.7 kg General appearance: PRESENT: severe distress, well-developed, well-nourished Head exam: PRESENT: atraumatic, normocephalic Eye exam: PRESENT: conjunctiva pink, EOMI, PERRLA. ABSENT: scleral icterus Ear exam: PRESENT: normal external ear exam Mouth exam: PRESENT: dry mucosa, tongue midline Respiratory exam: PRESENT: decreased breath sounds - bibasilar, retraction, rhonchi - throughout, symmetrical, tachypnea, other - HFNC. ABSENT: rales, wheezes Cardiovascular exam: PRESENT: RRR, +S1, +S2. ABSENT: diastolic murmur, rubs, systolic murmur Pulses: PRESENT: normal dorsalis pedis pul Vascular exam: PRESENT: normal capillary refill GI/Abdominal exam: PRESENT: normal bowel sounds, soft. ABSENT: distended, guarding, mass, organolmegaly, rebound, tenderness Rectal exam: PRESENT: deferred Extremities exam: ABSENT: calf tenderness, clubbing, pedal edema Neurological exam: PRESENT: CN II-XII grossly intact, other - Lethargic; responds to voice, briefly opens eyes, but does not answer questions or follow commands. ABSENT: motor sensory deficit Psychiatric exam: ABSENT: homicidal ideation, suicidal ideation Skin exam: PRESENT: dry, intact, warm. ABSENT: cyanosis, rash Results Laboratory Results: 10/13/19 13:25 10/13/19 13:25 10/13/19 10/13/19 10/13/19 13:25 13:25 13:57 WBC 22.5 H RBC 3.22 L Hgb 9.9 L Hct 30.1 L MCV 93 MCH 30.8 MCHC 32.9 RDW 16.7 H Plt Count 279 Seg Neutrophils % Not Reportable Carbonic Acid 1.02 L HCO3/H2CO3 Ratio 21:1 ABG pH 7.42 ABG pCO2 33.9 L ABG pO2 73.6 L ABG HCO3 21.5 ABG O2 Saturation 95.2 ABG Base Excess -2.4 FiO2 100% Sodium 141.2 Potassium 4.1 Chloride 109 H Carbon Dioxide 23 Anion Gap 9 BUN 66 H Creatinine 1.31 H Est GFR ( Amer) 47 L Glucose 109 Calcium 9.4 Total Bilirubin 0.7 AST 66 H Alkaline Phosphatase 71 Total Protein 5.8 L Albumin 3.1 L Urine Color Urine Appearance Urine pH Ur Specific [place] Urine Protein Urine Glucose (UA) Urine Ketones Urine Blood Urine RBC (Auto) 10/13/19 15:42 WBC RBC Hgb Hct MCV MCH MCHC RDW Plt Count Seg Neutrophils % Carbonic Acid HCO3/H2CO3 Ratio ABG pH ABG pCO2 ABG pO2 ABG HCO3 ABG O2 Saturation ABG Base Excess FiO2 Sodium Potassium Chloride Carbon Dioxide Anion Gap BUN Creatinine Est GFR ( Amer) Glucose Calcium Total Bilirubin AST Alkaline Phosphatase Total Protein Albumin Urine Color YELLOW Urine Appearance CLEAR Urine pH 5.0 Ur Specific [place] 1.020 Urine Protein NEGATIVE Urine Glucose (UA) NEGATIVE Urine Ketones NEGATIVE Urine Blood MODERATE H Urine RBC (Auto) 2 10/13/19 13:25 NT-Pro-B Natriuret Pep 3020 H Impressions: Chest X-Ray 10/13/19 13:24 IMPRESSION: Increased bilateral basilar predominant interstitial and alveolar opacities. Cervical Spine CT 10/13/19 13:38 IMPRESSION: No acute fracture or malalignment of the cervical spine. Other degenerative findings as detailed above. Head CT 10/13/19 13:38 IMPRESSION: No acute intracranial abnormality. EVIDENCE OF ACUTE STROKE: NO. Assessment and Plan - Diagnosis (1) Healthcare-associated pneumonia Is this a current diagnosis for this admission?: Yes Plan: Chest x-ray demonstrates worsening pneumonia. Blood and sputum cultures are pending. The patient is admitted to [facility] on continuous cardiac telemetry. She is provided supplemental oxygen via high flow nasal cannula. We will wean as tolerated. Continue scheduled and as needed nebulizer treatments. Discussed antibiotic choice with Dr. Elias. Given her recent treatment failure with Azactam, and allergies to penicillin and vancomycin; patient is placed on IV Levaquin, Zyvox, and meropenem for treatment of a healthcare associated pneumonia with history of bronchial alveolar cancer and recent CT imaging showing possible necrotic appearance. Mucinex twice daily. Robitussin as needed. Chest physiotherapy twice daily. Incentive spirometer once able to participate. Discussion had with the patient's daughter tonight regarding acute respiratory failure and potential need for intubation. Daughter reports that she would want her mother intubated if necessary, but would want marques updates on patient's progress (to determine appropriateness of continued intubation vs terminal e xtubation). She intends to discuss this with her brothers and to look through her mother's paperwork tonight to see if the patient has any DNR/HCPOA paperwork. (2) Acute and chronic respiratory failure with hypoxia Is this a current diagnosis for this admission?: Yes Plan: Patient was discharged from our facility 2 days ago on azithromycin for treatment of community-acquired pneumonia. She was sent home with home O2; new to the patient. She does have a history of lung cancer and asthma. PET scan fromJanuary 2019 showed no significant interval change, chronic parenchymal opacities in both lungs but with mild increased activity. Continue supplemental oxygen via high flow nasal cannula. Did discuss with the patient's daughter that if she fails this, the next step would be intubation as her mental status would make BiPAP support unsafe. Briefly discussed with Dr. Elias, profiling machine operator. Reviewed antibiotics for healthcare associated pneumonia with him as assistance. He advises that due to her recent CT imaging with necrotic appearance, patient would benefit from lung biopsy and bronchoscopy once stable. Remaining management as above. (3) JAZMYNE (acute kidney injury) Is this a current diagnosis for this admission?: Yes Plan: Prerenal secondary to dehydration in the setting of fever, tachypnea, and decreased mental status. Received 1 L normal saline by ED provider. We will continue gentle IV fluids until patient is taking adequate p.o. Avoid nephrotoxic medications as able; renally dose when necessary. Follow-up chemistry. (4) Acute encephalopathy Is this a current diagnosis for this admission?: Yes Plan: Multifactorial secondary to acute illness, anoxia, and JAZMYNE. Head CT is negative for acute findings Ammonia level pending. Supportive care. Fall precautions. (5) History of lung cancer Is this a current diagnosis for this admission?: Yes Plan: Formally a patient of Dr. Hall; uncertain if she is established with new oncologist. PET scan fromJanuary 2019 showed no significant interval change, chronic parenchymal opacities in both lungs but with mild increased activity. Discussed with Dr. Cutr larkin; he advises that her recent CT imaging had necrotic appearance. Patient would benefit from lung biopsy and bronchoscopy once stable. Consider oncology consultation. - Time Time Spent with patient: 35 or more minutes Medications reviewed and adjusted accordingly: Yes - Inpatient Certification Based on my medical assessment, after consideration of the patient's comorbidities, presenting symptoms, or acuity I expect that the services needed warrant INPATIENT care.: Yes I certify that my determination is in accordance with my understanding of Medicare's requirements for reasonable and necessary INPATIENT services [42 CFR 412.3e].: Yes Medical Necessity: Failure to Improve With Outpatient Therapy, Need Close Monitoring Due to Risk of Patient Decompensation, Need For IV Fluids, Need For Continuous Telemetry Monitoring, Need for Nebulizer Therapy and Monitoring of Response, Need for IV Antibiotics, Risk of Complication if Not Cared For in Hospital, Risk of Diagnosis Which Will Require Inpatient Eval/Care/Monitoring
[2019-10-13] MEDS: NORMAL SALINE 1000 ML 1,000 ML IV PRN (20:00)
[2019-10-13] MEDS ORDERED: LEVOFLOXACIN 750 MG/D5W RTU 750 MG/150 ML RTUPB IV SCH (20:00)
[2019-10-13] MEDS: IPRATROPIUM/ALBUTEROL 0.5-2.5 MG/3 ML AMPUL NEB SCH (20:41)
[2019-10-13 21:53] LABS: A TYPE INFLUENZA AG NEGATIVE (NEGATIVE); B INFLUENZA AG NEGATIVE (NEGATIVE)
[2019-10-13] MEDS ORDERED: AZTREONAM 1 GM in DEXTROSE 5%-WATER 50 ML IV SCH (22:00)
[2019-10-13] MEDS ORDERED: MEROPENEM 500 MG VIAL IV PRN (22:19)
[2019-10-13] MEDS: GUAIFENESIN 600 MG TABLET.SA PO SCH (22:30)
[2019-10-13 22:32] LABS: ARTERIAL BLOOD BASE EXCESS -4.7 mmol/L; ARTERIAL BLOOD H2CO3 0.95 mmol/L (1.05-1.35); ARTERIAL BLOOD HCO3 19.3 mmol/L (20-24); ARTERIAL BLOOD O2 SATURATION 95.9 % (94-98); ARTERIAL BLOOD PCO2 31.7 mmHg (35-45); ARTERIAL BLOOD PO2 79.3 mmHg (80-100); ARTERIAL BLOOD TOTAL CO2 20.3 mmol/L (21-25)
[2019-10-13] MEDS: LINEZOLID 600 MG/300 ML RTUPB IV SCH (22:32)
[2019-10-13 22:33] LABS: ARTERIAL BLOOD FIO2 60%
[2019-10-13] MEDS: HYDRALAZINE HCL 50 MG TABLET PO SCH (22:34)
[2019-10-13] MEDS: HEPARIN SOD (PORCINE) 5,000 UNIT/ML 1 ML VIAL SUBCUT SCH (23:28)
[2019-10-13] MEDS: MEROPENEM 500 MG in NORMAL SALINE 50 ML IV SCH (23:35)
[2019-10-14] MEDS ORDERED: MEROPENEM 500 MG VIAL ONE ×2 (00:23→22:20)
[2019-10-14] MEDS: IPRATROPIUM/ALBUTEROL 0.5-2.5 MG/3 ML AMPUL NEB SCH ×4 (02:29→21:31)
[2019-10-14] MEDS: LEVOTHYROXINE SODIUM 0.075 MG TABLET PO SCH (05:53)
[2019-10-14] MEDS: HEPARIN SOD (PORCINE) 5,000 UNIT/ML 1 ML VIAL SUBCUT SCH ×3 (05:53→22:37)
[2019-10-14 06:18] LABS: ABSOLUTE EOSINOPHILS # (AUTO) 0.2 10^3/uL (0.0-0.6); ABSOLUTE LYMPHOCYTES (AUTO) 0.8 10^3/uL (0.5-4.7); ABSOLUTE MONOCYTES (AUTO) 0.5 10^3/uL (0.1-1.4); ABSOLUTE NEUT (AUTO) 13.2 10^3/uL (1.7-8.2); EOSINOPHILS % (AUTO) 1.1 % (0-6); HEMATOCRIT 28.6 % (36.0-47.0); HEMOGLOBIN 9.3 g/dL (12.0-15.5); LYMPHOCYTES % (AUTO) 5.4 % (13-45); MEAN CORPUSCULAR HEMOGLOBIN 30.1 pg (27.0-33.4); MEAN CORPUSCULAR HGB CONC 32.6 g/dL (32.0-36.0); MEAN CORPUSCULAR VOLUME 92 fl (80-97); MONOCYTES % (AUTO) 3.5 % (3-13); PLATELET COUNT 235 10^3/uL (150-450); RED BLOOD COUNT 3.09 10^6/uL (3.72-5.28); RED CELL DISTRIBUTION WIDTH 16.3 % (11.5-14.0); TOTAL CELLS COUNTED % (AUTO) 100 %; WHITE BLOOD COUNT 14.7 10^3/uL (4.0-10.5)
[2019-10-14 06:28] LABS: ANION GAP 7 (5-19); BLOOD UREA NITROGEN 47 mg/dL (7-20); CALCIUM 9.2 mg/dL (8.4-10.2); CARBON DIOXIDE 23 mmol/L (22-30); CHLORIDE 111 mmol/L (98-107); GLUCOSE 95 mg/dL (75-110); POTASSIUM 3.7 mmol/L (3.6-5.0)
[2019-10-14] MEDS: NORMAL SALINE 1000 ML 1,000 ML IV PRN (06:44)
[2019-10-14] MEDS: MEROPENEM 500 MG in NORMAL SALINE 50 ML IV SCH ×2 (10:30→22:58)
[2019-10-14 10:59] LABS: ARTERIAL BLOOD H2CO3 0.87 mmol/L (1.05-1.35); ARTERIAL BLOOD HCO3 19.3 mmol/L (20-24); ARTERIAL BLOOD O2 SATURATION 97.7 % (94-98); ARTERIAL BLOOD PH 7.44 (7.35-7.45); ARTERIAL BLOOD PO2 97.8 mmHg (80-100); ARTERIAL BLOOD TOTAL CO2 20.2 mmol/L (21-25)
[2019-10-14 11:10] LABS: ARTERIAL BLOOD FIO2 60%
[2019-10-14] MEDS: ACETYLCYSTEINE 20% SOLN 800 MG/4 ML VIAL.NEB NEB ONE ×2 (11:44→14:30)
--- NOTE | 2019-10-14 11:53 | RADIOLOGY REPORT (SQ) ---
EXAM DESCRIPTION: CHEST SINGLE VIEW COMPLETED DATE/TIME: 10/14/2019 11:25 am REASON FOR STUDY: hypoxia COMPARISON: AP chest 10/21/2019, 10/06/2019 CT chest 10/10/2019, 04/13/2018 PET-CT 02/14/2019 EXAM PARAMETERS: NUMBER OF VIEWS: One view. TECHNIQUE: Single frontal radiographic view of the chest acquired. RADIATION DOSE: NA LIMITATIONS: None. FINDINGS: LUNGS AND PLEURA: Diffuse bilateral airspace disease persists from bilateral bronchoalveol ar carcinoma. No new areas of consolidation. No pleural effusion. No pneumothorax. MEDIASTINUM AND HILAR STRUCTURES: No masses. Contour normal. HEART AND VASCULAR STRUCTURES: Heart normal in size. Normal vasculature. BONES: No acute findings. HARDWARE: None in the chest. OTHER: No other significant finding. IMPRESSION: Diffuse bilateral airspace disease from known bronchoalveolar carcinoma. Similar appear ance of the chest compared to previous studies accounting for differences in technique TECHNICAL DOCUMENTATION: JOB ID: [id number] [employer]- All Rights Reserved Reading location - IP/workstation name: [email or web address]
[2019-10-14] MEDS: LOSARTAN POTASSIUM 50 MG TABLET PO SCH (11:57)
[2019-10-14] MEDS: HYDRALAZINE HCL 50 MG TABLET PO SCH ×2 (11:57→22:27)
[2019-10-14] MEDS: AMLODIPINE BESYLATE 10 MG TABLET PO SCH (11:58)
[2019-10-14] MEDS: GUAIFENESIN 600 MG TABLET.SA PO SCH (11:58)
[2019-10-14] MEDS: LINEZOLID 600 MG/300 ML RTUPB IV SCH ×2 (12:18→22:33)
[2019-10-14] MEDS ORDERED: HYDRALAZINE HCL INJ/PF 20 MG/1 ML SDV IV PRN (15:13)
--- NOTE | 2019-10-14 15:14 | PDOC PROGRESS REPORT ---
Subjective Progress Note for:: 10/14/19 Subjective:: ABDIAZIZ BULLARD is a 79 year old female with the past medical history significant for hypertension, asthma, lung cancer, hypothyroidism, GERD, and opiate dependent chronic pain who was admitted 10/13/19 for healthcare associated pneumonia. The patient was seen on morning rounds. She was found resting in bed, head of bed elevated, on BiPAP. She was sleeping but woke easily when I set her name. She is alert and oriented x4 today. She is conversational, though with frequent pauses. Did assist her off BiPAP to have a sip of water; she does desaturate into the mid 80s within a few seconds. She reports fatigue, dyspnea, cough. She denies fever, chills, chest pain, palpitations, abdominal pain, nausea and vomiting. Long discussion had with the patient and daughter regarding progress so far and plan of care. All questions answered. Discussed closely with nursing. Reason For Visit: PNEUMONIA Physical Exam Vital Signs: Temp Pulse Resp BP Pulse Ox 98.4 F 71 29 H 174/55 H 96 10/14/19 12:36 10/14/19 14:30 10/14/19 14:30 10/14/19 12:36 10/14/19 14:30 Pulse Oximeter Continuous Start: 10/13/19 18:04 Freq: RTQ4 Status: Active Protocol: Document 10/14/19 11:34 [facility] (Rec: 10/14/19 11:35 [facility] [id number]) Pulse Oximetry Assessment Oxygen Saturation (92-100) 100 Oxygen Delivery Method Bi-pap Fraction of Inspired Oxygen (FIO2) 60 Equipment Usage Equipment in Use Continuous SpO2 Machine # [id number] Intake & Output 10/13/19 10/14/19 10/15/19 06:59 06:59 06:59 Intake Total 1533 Output Total 750 Balance 783 Weight 66.8 kg General appearance: PRESENT: mild distress, well-developed, well-nourished Head exam: PRESENT: atraumatic, normocephalic Eye exam: PRESENT: conjunctiva pink, EOMI, PERRLA. ABSENT: scleral icterus Ear exam: PRESENT: normal external ear exam Mouth exam: PRESENT: dry mucosa, tongue midline Respiratory exam: PRESENT: accessory muscle use, rhonchi, symmetrical, tachypnea, other - BiPAP dependent. ABSENT: rales, wheezes Cardiovascular exam: PRESENT: RRR. ABSENT: diastolic murmur, rubs, systolic murmur Pulses: PRESENT: normal dorsalis pedis pul Vascular exam: PRESENT: normal capillary refill GI/Abdominal exam: PRESENT: normal bowel sounds, soft. ABSENT: distended, guarding, mass, organolmegaly, rebound, tenderness Rectal exam: PRESENT: deferred Extremities exam: PRESENT: full ROM. ABSENT: calf tenderness, clubbing, pedal edema Neurological exam: PRESENT: alert, awake, oriented to person, oriented to place, oriented to time, oriented to situation, CN II-XII grossly intact, other - fatigued. ABSENT: motor sensory deficit Psychiatric exam: PRESENT: appropriate affect, normal mood. ABSENT: homicidal ideation, suicidal ideation Skin exam: PRESENT: dry, intact, warm. ABSENT: cyanosis, rash Results Laboratory Results: 10/14/19 05:38 10/14/19 05:38 10/13/19 10/13/19 10/13/19 15:42 18:43 19:06 WBC RBC Hgb Hct MCV MCH MCHC RDW Plt Count Seg Neutrophils % Carbonic Acid 0.86 L HCO3/H2CO3 Ratio 22:1 ABG pH 7.44 ABG pCO2 28.7 L ABG pO2 53.1 L ABG HCO3 19.1 L ABG O2 Saturation 89.4 L ABG Base Excess -4.1 FiO2 40% Sodium Potassium Chloride Carbon Dioxide Anion Gap BUN Creatinine Est GFR ( Amer) Glucose Calcium Ammonia < 8.7 L Urine Color YELLOW Urine Appearance CLEAR Urine pH 5.0 Ur Specific [place] 1.020 Urine Protein NEGATIVE Urine Glucose (UA) NEGATIVE Urine Ketones NEGATIVE Urine Blood MODERATE H Urine RBC (Auto) 2 10/13/19 10/14/19 10/14/19 22:20 05:38 05:38 WBC 14.7 H RBC 3.09 L Hgb 9.3 L Hct 28.6 L MCV 92 MCH 30.1 MCHC 32.6 RDW 16.3 H Plt Count 235 Seg Neutrophils % 90.0 H Carbonic Acid 0.95 L HCO3/H2CO3 Ratio 20:1 ABG pH 7.40 ABG pCO2 31.7 L ABG pO2 79.3 L ABG HCO3 19.3 L ABG O2 Saturation 95.9 ABG Base Excess -4.7 FiO2 60% Sodium 141.3 Potassium 3.7 Chloride 111 H Carbon Dioxide 23 Anion Gap 7 BUN 47 H Creatinine 1.02 Est GFR ( Amer) > 60 Glucose 95 Calcium 9.2 Ammonia Urine Color Urine Appearance Urine pH Ur Specific [place] Urine Protein Urine Glucose (UA) Urine Ketones Urine Blood Urine RBC (Auto) 10/14/19 10:25 WBC RBC Hgb Hct MCV MCH MCHC RDW Plt Count Seg Neutrophils % Carbonic Acid 0.87 L HCO3/H2CO3 Ratio 22:1 ABG pH 7.44 ABG pCO2 29.0 L ABG pO2 97.8 ABG HCO3 19.3 L ABG O2 Saturation 97.7 ABG Base Excess -4.0 FiO2 60% Sodium Potassium Chloride Carbon Dioxide Anion Gap BUN Creatinine Est GFR ( Amer) Glucose Calcium Ammonia Urine Color Urine Appearance Urine pH Ur Specific [place] Urine Protein Urine Glucose (UA) Urine Ketones Urine Blood Urine RBC (Auto) 10/13/19 13:25 NT-Pro-B Natriuret Pep 3020 H Impressions: Cervical Spine CT 10/13/19 13:38 IMPRESSION: No acute fracture or malalignment of the cervical spine. Other degenerative findings as detailed above. Head CT 10/13/19 13:38 IMPRESSION: No acute intracranial abnormality. EVIDENCE OF ACUTE STROKE: NO. 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 Similar appearance of the chest compared to previous studies account ing for differences in technique Assessment and Plan - Diagnosis (1) Healthcare-associated pneumonia Is this a current diagnosis for this admission?: Yes Plan: Chest x-ray demonstrates worsening pneumonia. Unchanged today. Blood cultures -24 hours. Sputum culture revealed yeast. Chest CT with contrast pending The patient is admitted to [facility] on continuous cardiac telemetry. She is provided supplemental oxygen. Failed high flow nasal cannula last night; fortunately now with increased alertness and ability to tolerate BiPAP. Continue scheduled and as needed nebulizer treatments. Given her recent treatment failure with Azactam, and allergies to penicillin and vancomycin; patient is placed on IV Levaquin, Zyvox, and meropenem for treatment of a healthcare associated pneumonia with history of bronchial alveolar cancer and recent CT imaging showing possible necrotic appearance. Mucomyst nebs twice daily. Mucinex twice daily. Robitussin as needed. Chest physiotherapy twice daily. Incentive spirometer once able to participate. Patient confirms full code. (2) Acute and chronic respiratory failure with hypoxia Is this a current diagnosis for this admission?: Yes Plan: Patient was discharged recently on azithromycin for treatment of community- acquired pneumonia. She was sent home with home O2; new to the patient. She does have a history of lung cancer and asthma. PET scan from January 2019 showed no significant interval change, chronic parenchymal opacities in both lungs but with mild increased activity. Continue supplemental oxygen via high flow nasal cannula. Discussed with Dr. Elias, ip/mosaic technician. Reviewed antibiotics for healthcare associated pneumonia with him as assistance. He advises that due to her recent CT imaging with necrotic appearance, patient would benefit from lung biopsy and bronchoscopy once stable. Remaining management as above. (3) JAZMYNE (acute kidney injury) Is this a current diagnosis for this admission?: Yes Plan: Improved; Cr 1.02/BUN 47 Prerenal secondary to dehydration in the setting of fever, tachypnea, and decreased mental status. Received 1 L normal saline by ED provider. We will continue gentle IV fluids until patient is taking adequate p.o. Avoid nephrotoxic medications as able; renally dose when necessary. Follow-up chemistry. (4) Acute encephalopathy Is this a current diagnosis for this admission?: Yes Plan: Resolved. Multifactorial secondary to acute illness, anoxia, and JAZMYNE. Head CT is negative for acute findings Ammonia level pending. Supportive care. Fall precautions. (5) History of lung cancer Is this a current diagnosis for this admission?: Yes Plan: Formally a patient of Dr. Hall; uncertain if she is established with new oncologist. PET scan fromJanuary 2019 showed no significant interval change, chronic parenchymal opacities in both lungs but with mild increased activity. Discussed with Dr. Curt larkin; he advises that her recent CT imaging had necrotic appearance. Patient would benefit from lung biopsy and bronchoscopy once stable. Now followed by Dr. Samuel. Consider oncology consultation. (6) Hypertension Is this a current diagnosis for this admission?: Yes Plan: Continue home dose amlodipine, hydralazine, losartan. IV hydralazine as needed for blood pressure control. (7) Hypothyroidism Is this a current diagnosis for this admission?: Yes Plan: Continue home dose levothyroxine. - Time Time Spent with patient: 35 or more minutes Medications reviewed and adjusted accordingly: Yes Anticipated discharge: Home with Homehealth
[2019-10-14] MEDS ORDERED: ETOMIDATE INJ/PF 20 MG/10 ML SDV IV ONE ×2 (18:35→19:00)
[2019-10-14] MEDS ORDERED: PROPOFOL 1,000 MG/100 ML INFUS..BTL IV PRN (18:36)
[2019-10-14] MEDS ORDERED: PROPOFOL 1,000 MG/100 ML INFUS..BTL IV ONE (18:36)
--- NOTE | 2019-10-14 18:51 | CRITICAL CARE ADMISSION REPORT ---
HPI Date:: 10/14/19 Time:: 17:45 Reason for ICU Reason:: Worsening respiratory failure HPI: ABDIAZIZ BULLARD is a 79 year old female with the past medical history signific ant for hypertension, asthma, lung cancer (bronchogenic adenocarcinoma, hypothyroidism, GERD, and opiate dependent chronic pain who was discharged from our facility 2 days ago with home O2 (new to the patient) following 5-day treatment for community-acquired pneumonia. Patient arrived to the emergency department via EMS 10.13.19 after a welfare check by law enforcement when patient did not answer multiple phone calls by her children this morning found that the patient was altered, hypoxic on room air with O2 saturation in the mid 70s, and irregular breathing. She received high flow oxygen and BVM support briefly in the field but did not require intubation. She was maintaining oxygen saturations on high flow nasal cannula with FiO2 of 40% in ED. Evaluation in the emergency department revealed leukocytosis with WBC of 22.5, baseline anemia with hemoglobin 9.9, compensated respiratory alkalosis with hypoxia while on nonrebreather, mild JAZMYNE with creatinine of 1.31 and BUN of 66, proBNP of 3000 (no prior studies), and chest x-ray demonstrating worsening pneumonia. Due to the patient's allergies to penicillin vancomycin she was provided Azactam and referred to the hospitalist service for admission and management of healthcare associated pneumonia. She continues to require noninvasive ventilation. Today she appeared to be tiring with an x-ray which was not reassuring. The care team received a call from the hospitalist service because of concerns of her situation. We had been informed of her situation and had been assisting the hospitalist and antibiotic coverage in the CT scan request. Patient to the non-assurance of her ability to continue to maintain her current status she was transferred to the ICU. Due to her respiratory distress and need for BiPAP patient was unable to give a salient consistent history. Did meet with her daughter who states that the patient has lost significant weight. Patient was found down at home and has a sacral wound which was not pre sent when she was discharged from the hospital. Patient would want intubation but for limited period of time according to her and the daughter. She was diagnosed with bronchogenic carcinoma about 5 or 6 years ago and seen at [facility]. As best that I can tell she received chemotherapy however we are awaiting old records to see if she had adjuvant radiation therapy. History obtained from:: EMR, Hospitalist team - Diagnosis/Plan (1) Acute respiratory failure with hypoxia Is this a current diagnosis for this admission?: Yes (2) Bilateral pulmonary infiltrates on CXR Is this a current diagnosis for this admission?: Yes (3) Hx of bronchogenic malignancy Is this a current diagnosis for this admission?: Yes (4) Segmental bullous emphysema Is this a current diagnosis for this admission?: Yes (5) Atypical pneumonia Is this a current diagnosis for this admission?: Yes (6) Sacral decubitus ulcer, stage III Is this a current diagnosis for this admission?: Yes Plan: Present on this admission but was not present when discharged - . Plan Summary: I am concerned that the patient has lymphangitic spread and recurrence of her bronchogenic carcinoma. Other etiologies including the differential include SAFETY ANALYST/BOOP; atypical pneumonia, fungal pneumonia. She had been quite active but has been short of breath according to the daughter. She has lost weight as well leading me to suspect that she has an underlying malignancy which is causing this. She has had a decline in her health. At 79 years old the patient still lives independently and would want intubation but for short period of time. She has relegated her decision-making capacity to her daughter. We will attempt to get medical records from [facility]. Will order CK to rule out rhabdomyolysis We will perform bronchoscopy. I suspect that the patient will need lung biopsy which will be a significant issue given her age and deconditioned state. Patient has a sacral decubitus present on admission and will have wound care and Mepilex protection. Past Medical History Cardiac Medical History: Reports: Hypertension Denies: Coronary Artery Disease, Myocardial Infarction Pulmonary Medical History: Reports: Asthma, Pneumonia, Respiratory Failure - Chronic; home O2 dependent, Other Denies: Bronchitis, Chronic Obstructive Pulmonary Disease (COPD) Neurological Medical History: Denies: Ischemic CVA, Seizures Endocrine Medical History: Reports: Diabetes Mellitus Type 2 Malignancy Medical History: Reports: Lung Cancer - Bronchogenic GI Medical History: Reports: Gastroesophageal Reflux Disease Denies: Hepatitis, Hiatal Hernia Musculoskeltal Medical History: Reports: Arthritis Psychiatric Medical History: Reports: None Denies: Depression Hematology: Denies: Anemia, Sickle Cell Disease Past Surgical History Past Surgical History: Reports: Appendectomy, Hysterectomy Denies: Amputation, Mastectomy, Pacemaker Social/Family History - Social History Lives with: Alone Smoking Status: Former Smoker Frequency of Alcohol Use: None Hx Recreational Drug Use: No Drugs: None Hx Prescription Drug Abuse: No - Medication/Allergies Home Medications: Albuterol Sulfate [Proair HFA Inhalation Aerosol 8.5 gm MDI] 2 puff IH Q4HP PRN 10/06/19 Albuterol Sulfate [Ventolin 0.083% Neb 2.5 mg/3 mL Ampul] 1 vial NEB Q6HP PRN 10/06/19 Budesonide/Formoterol Fumarate [Symbicort HFA 160-4.5 mcg Inhaler 6 gm] 2 puff IH Q12 10/06/19 Cholecalciferol (Vitamin D3) [Vitamin D3 3000 unit Tablet] 3,000 unit PO DAILY 10/06/19 Dexlansoprazole [Dexilant 60 mg Capsule] 60 mg PO DAILY 10/06/19 Furosemide [Lasix 20 mg Tablet] 20 mg PO QAM 10/06/19 Hydrocodone Bit/Acetaminophen [Hydrocodon-Acetaminophn 10-325] 1 tab PO DAILYP PRN 10/06/19 Levothyroxine Sodium 75 mcg PO DAILY 10/06/19 Losartan Potassium [Cozaar 100 mg Tablet] 100 mg PO DAILY 10/06/19 Meloxicam [Mobic] 15 mg PO DAILY 10/06/19 Multivitamin [One-Daily Multi-Vitamin] 1 tab PO DAILY 10/06/19 Ondansetron HCl [Zofran 8 mg Tablet] 8 mg PO DAILYP PRN 10/06/19 Tiotropium [place] [Spiriva Respimat] 2 puff IH DAILY 10/06/19 Amlodipine Besylate [Norvasc 10 mg Tablet] 10 mg PO DAILY #30 tablet 10/11/19 Azithromycin 500 mg PO DAILY #3 tablet 10/11/19 Benzonatate [Tessalon Perles 100 mg Capsule] 100 mg PO TIDP PRN #30 capsule 10/11/19 Clonazepam 0.5 mg PO Q6HP PRN #15 tablet 10/11/19 Hydralazine HCl [Apresoline 50 mg Tablet] 50 mg PO Q12 #60 10/11/19 Allergies/Adverse Reactions: Penicillins Allergy (Severe, Verified 10/13/19 17:57) RESP DISTRESS vancomycin [Vancomycin] Allergy (Severe, Verified 10/13/19 17:57) SEVERE ITCHING Review of Systems ROS unobtainable: Due to mental status, Other - Respiatory distress Physical Exam Vital Signs: Temp Pulse Resp BP Pulse Ox 98.4 F 71 29 H 174/55 H 96 10/14/19 12:36 10/14/19 14:30 10/14/19 14:30 10/14/19 12:36 10/14/19 14:30 Pulse Oximeter Continuous Start: 10/13/19 18:04 Freq: RTQ4 Status: Active Protocol: Document 10/14/19 11:34 [facility] (Rec: 10/14/19 11:35 [facility] [id number]) Pulse Oximetry Assessment Oxygen Saturation (92-100) 100 Oxygen Delivery Method Bi-pap Fraction of Inspired Oxygen (FIO2) 60 Equipment Usage Equipment in Use Continuous SpO2 Machine # [id number] Intake & Output 10/13/19 10/14/19 10/15/19 06:59 06:59 06:59 Intake Total 1533 25 Output Total 750 280 Balance 783 -255 Weight 66.8 kg Weight/Height Weight 66.8 kg Height 5 ft General appearance: PRESENT: cooperative, hard of hearing, obese Exam: Ill appearing 79-year-old female on BiPAP in moderate respiratory distress. Respiratory rate greater than 30. Head exam: PRESENT: atraumatic, normocephalic Eye exam: PRESENT: conjunctiva pink, EOMI, PERRLA. ABSENT: conjunctival injection, nystagmus, scleral icterus Mouth exam: PRESENT: dry mucosa, neck supple Neck exam: ABSENT: carotid bruit, JVD, lymphadenopathy, thyromegaly Respiratory exam: PRESENT: accessory muscle use, crackles, retraction, rhonchi, tachypnea. ABSENT: stridor, unlabored Cardiovascular exam: PRESENT: RRR, +S1, +S2, tachycardia. ABSENT: systolic murmur Pulses: PRESENT: +1 pedal pulses bilateral Vascular exam: PRESENT: normal capillary refill. ABSENT: pallor GI/Abdominal exam: PRESENT: normal bowel sounds, soft. ABSENT: ascites, dist ended, guarding, mass, Grady's sign, organolmegaly, rebound, tenderness Rectal exam: PRESENT: deferred Gentrourinary exam: PRESENT: indwelling catheter Extremities exam: ABSENT: pedal edema, tenderness Musculoskeletal exam: PRESENT: normal inspection. ABSENT: deformity, dislocation Neurological exam: PRESENT: altered, awake, oriented to person, oriented to place, CN II-XII grossly intact. ABSENT: oriented to time, motor sensory deficit, aphasic Psychiatric exam: PRESENT: anxious Focused psych exam: PRESENT: restlessness Skin exam: PRESENT: dry, intact, warm. ABSENT: cyanosis, pallor, petechiae, rash Tubes/Lines: ABSENT: Endotracheal Tube, Chest Tube, Central Line, Arterial Catheter, Dialysis catheter, Peg Tube, Nasogastic Tube, Other Laboratory/Radiographs Laboratory Results: 10/14/19 05:38 10/14/19 05:38 10/13/19 10/13/19 10/13/19 18:43 19:06 22:20 WBC RBC Hgb Hct MCV MCH MCHC RDW Plt Count Seg Neutrophils % Carbonic Acid 0.86 L 0.95 L HCO3/H2CO3 Ratio 22:1 20:1 ABG pH 7.44 7.40 ABG pCO2 28.7 L 31.7 L ABG pO2 53.1 L 79.3 L ABG HCO3 19.1 L 19.3 L ABG O2 Saturation 89.4 L 95.9 ABG Base Excess -4.1 -4.7 FiO2 40% 60% Sodium Potassium Chloride Carbon Dioxide Anion Gap BUN Creatinine Est GFR ( Amer) Glucose Calcium Ammonia < 8.7 L 10/14/19 10/14/19 10/14/19 05:38 05:38 10:25 WBC 14.7 H RBC 3.09 L Hgb 9.3 L Hct 28.6 L MCV 92 MCH 30.1 MCHC 32.6 RDW 16.3 H Plt Count 235 Seg Neutrophils % 90.0 H Carbonic Acid 0.87 L HCO3/H2CO3 Ratio 22:1 ABG pH 7.44 ABG pCO2 29.0 L ABG pO2 97.8 ABG HCO3 19.3 L ABG O2 Saturation 97.7 ABG Base Excess -4.0 FiO2 60% Sodium 141.3 Potassium 3.7 Chloride 111 H Carbon Dioxide 23 Anion Gap 7 BUN 47 H Creatinine 1.02 Est GFR ( Amer) > 60 Glucose 95 Calcium 9.2 Ammonia 10/13/19 13:25 NT-Pro-B Natriuret Pep 3020 H Impressions: Cervical Spine CT 10/13/19 13:38 IMPRESSION: No acute fracture or malalignment of the cervical spine. Other degenerative findings as detailed above. Head CT 10/13/19 13:38 IMPRESSION: No acute intracranial abnormality. EVIDENCE OF ACUTE STROKE: NO. 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 Similar appearance of the chest compared to previous studies accounting for differences in technique All labs, radiographs, diagnostic studies and EKGs were personally reviewed: Yes In addition, reports of radiographic and diagnostic studies were read: Yes Critical Time Critical Time (minutes): 90 -: The care of a critically ill patient is dynamic. This note represents a static moment in the admission process. orders and treatments may be given simultaneously and urgently, and time is not chemical sales representative of the treatment process. This patient requires Critical Care secondary to life threatening organ or limb dysfunction. Without the need for Critical Care services, the patient is at risk for increased mortality and morbidity. MPOA is daughter
[2019-10-14] MEDS ORDERED: METHYLPREDNISOLONE INJ 125 MG/2 ML SDV IV ONE (19:00)
[2019-10-14] MEDS: RINGERS SOLUTION,LACTATED 1,000 ML IV PRN (19:00)
[2019-10-14] MEDS ORDERED: SUCCINYLCHOLINE CHLORIDE INJ 200 MG/10 ML VIAL IV ONE (19:00)
[2019-10-14] MEDS ORDERED: FENTANYL CITRATE INJ/PF 100 MCG/2 ML AMPUL IV ONE (19:00)
--- NOTE | 2019-10-14 19:33 | RADIOLOGY REPORT (SQ) ---
EXAM DESCRIPTION: CT CHEST WITH COMPLETED DATE/TIME: 10/14/2019 6:21 pm REASON FOR STUDY: hypoxia, HAP, Hx Lung CA COMPARISON: 10/10/2019 TECHNIQUE: CT scan of the chest performed using helical scanning technique with dynamic intravenous contrast injection. Images reviewed with lung, soft tissue and bone windows. Reconstructed coronal and sagittal MPR and MIP images reviewed. All images stored on PACS. All CT scanners at this facility use dose modulation, iterative reconstruction, and/or weight based d osing when appropriate to reduce radiation dose to as low as reasonably achievable (ALARA). [facility]: Dose Right [facility]: CareDose [facility]: Dose Right [facility]: Teradose 4D [facility]: SuddenValues CONTRAST TYPE AND DOSE: contrast/concentration: Isovue 350.00 mg/ml; Total Contrast Delivered: 80.0 ml; Total Saline Delivered: 49.0 ml RENAL FUNCTION: BUN 47 creatinine 1.02 RADIATION DOSE: CT Rad equipment meets quality standard of care and radiation dose reduction techniq ues were employed. CTDIvol: 13.8 mGy. DLP: 515 mGy-cm. . LIMITATIONS: None. FINDINGS: LUNGS AND PLEURA: Centrilobular emphysema. Marked opacification in the lower lobes, right more than left. Opacification left upper lobe adjacent to the fissure. Opacification the right upp er lobe adjacent to the fissure. These findings are relatively stable. HILAR AND MEDIASTINAL STRUCTURES: Nonspecific mediastinal nodes. HEART AND VASCULAR STRUCTURES: No aneurysm or dissection. No central pulmonary emboli. No pericardi al effusion. HARDWARE: None in the chest. UPPER ABDOMEN: No significant findings. Limited exam. THYROID AND OTHER SOFT TISSUES: No masses. No adenopathy. BONES: No significant finding. OTHER: No other significant finding. IMPRESSION: Extensive centrilobular emphysema. Extensive airspace disease in both lungs as describe d. This appears relatively stable. TECHNICAL DOCUMENTATION: JOB ID: [id number] Quality ID # [id number]: Final reports with documentation of one or more dose reduction techniques (e.g., Au tomated exposure control, adjustment of the mA and/or kV according to patient size, use of iterative reconstruction technique) 2010 [employer]- All Rights Reserved Reading location - IP/workstation name: [email or web address]
[2019-10-14] MEDS ORDERED: ACETYLCYSTEINE 20% SOLN 800 MG/4 ML VIAL.NEB NEB SCH (20:00)
--- NOTE | 2019-10-14 20:32 | RADIOLOGY REPORT (SQ) ---
EXAM DESCRIPTION: XR CHEST 1 VIEW COMPLETED DATE/TME: 10/14/2019 00:00 CLINICAL HISTORY: 79 years, Female, ETT intubation COMPARISON: Multiple priors, most recent from earlier the same day NUMBER OF VIEWS: Two TECHNIQUE: Two frontal radiographs of the chest were obtained LIMITATIONS: None. FINDINGS: Endotracheal tube tip is located within the trachea, approximately 3.9 cm above the juwan. Enteric drainage tube tip projects below the field of view. Cardiac and mediastinal contours are stable. Widespread bilateral airspace disease is again noted, fairly similar to the previous examination. There are likely small bilateral pleural effusions. No pneumothorax. IMPRESSION: No significant interval change in widespread bilateral airspace disease, suspicious for multifocal pneumonia. Endotracheal tube tip is located within the trachea, approximately 3.9 cm above the juwan. copyright 2010 [employer]- All Rights Reserved
[2019-10-14 20:43] LABS: CREATINE KINASE 503 U/L (30-135); TRIGLYCERIDES 161 mg/dL (<150)
[2019-10-14 21:25] LABS: BLOOD UREA NITROGEN 33 mg/dL (7-20); CALCIUM 9.5 mg/dL (8.4-10.2); GLUCOSE 103 mg/dL (75-110)
[2019-10-14 21:26] LABS: ALBUMIN 2.8 g/dL (3.5-5.0); ALKALINE PHOSPHATASE 82 U/L (38-126); ANION GAP 8 (5-19); ASPARTATE AMINO TRANSFERASE 102 U/L (14-36); BILIRUBIN,DIRECT 0.3 mg/dL (0.0-0.4); BILIRUBIN,TOTAL 0.8 mg/dL (0.2-1.3); CARBON DIOXIDE 21 mmol/L (22-30); CHLORIDE 110 mmol/L (98-107); POTASSIUM 3.7 mmol/L (3.6-5.0); TOTAL PROTEIN 5.7 g/dL (6.3-8.2)
[2019-10-14] MEDS ORDERED: LINEZOLID 600 MG/300 ML RTUPB IV ONE (22:20)
[2019-10-14] MEDS ORDERED: AZITHROMYCIN INJ 500 MG VIAL IV ONE (22:20)
[2019-10-14] MEDS: FENTANYL CITRATE/PF 600 MCG/60 ML BAG IV PRN (22:23)
[2019-10-14] MEDS: MINERAL OIL/PETROLATUM,WHITE OPH OINT 3.5 GM OU SCH (22:39)
--- NOTE | 2019-10-14 22:41 | Operative Report ---
Bedside Procedure - History of Present Illness History of Present Illness: ABDIAZIZ BULLARD is a 79 year old female with the past medical history significant for hypertension, asthma, lung cancer (bronchogenic adenocarcinoma, hypothyroidism, GERD, and opiate dependent chronic pain who was discharged from our facility 2 days ago with home O2 (new to the patient) following 5-day treatment for community-acquired pneumonia. Patient arrived to the emergency department via EMS 10.13.19 after a welfare check by law enforcement when patient did not answer multiple phone calls by her children this morning found that the patient was altered, hypoxic on room air with O2 saturation in the mid 70s, and irregular breathing. She received high flow oxygen and BVM support briefly in the field but did not require intubation. She was maintaining oxygen saturations on high flow nasal cannula with FiO2 of 40% in ED. Evaluation in the emergency department revealed leukocytosis with WBC of 22.5, baseline anemia with hemoglobin 9.9, compensated respiratory alkalosis with hypoxia while on nonrebreather, mild JAZMYNE with creatinine of 1.31 and BUN of 66, proBNP of 3000 (no prior studies), and chest x-ray demonstrating worsening pneumonia. Due to the patient's allergies to penicillin vancomycin she was provided Azactam and referred to the hospitalist service for admission and management of healthcare associated pneumonia. She continues to require noninvasive ventilation. Today she appeared to be tiring with an x-ray which was not reassuring. The care team received a call from the hospitalist service because of concerns of her situation. We had been informed of her situation and had been assisting the hospitalist and antibiotic coverage in the CT scan request. Patient to the non-assurance of her ability to continue to maintain her current status she was transferred to the ICU. Due to her respiratory distress and need for BiPAP patient was unable to give a salient consistent history. Did meet with her daughter who states that the patient has lost significant weight. Patient was found down at home and has a sacral wound which was not present when she was discharged from the hospital. Patient would want intubation but for limited period of time according to her and the daughter. She was diagnosed with bronchogenic carcinoma about 5 or 6 years ago and seen at [place]. As best that I can tell she received chemotherapy however we are awaiting old records to see if she had adjuvant radiation therapy. Indication for Procedure: Medication Administration. Date: 10/14/19 Provider: HUAN BILANCIA - Central Line Right Internal jugular Time completed: 22:00 Consent obtained: Yes Central line pre-insertion: Sterile PPE donned, Betadine prep applied, Chloraprep applied, Sterile drapes applied, Other - Placed in Trendelenberg position. Central line lumen type: Triple Anesthetic type: 1% Lidocaine Ultrasound guided: Yes CM at insertion site: 15 Line secured with sutures: Yes Central line post-insertion: Blood return from lumens, Biopatch applied, Sutured, Sterile dressing applied, Position confirmed w/ CXR Number of attempts: 1 Complications: No
[2019-10-14] MEDS: AZITHROMYCIN 500 MG in DEXTROSE 5%-WATER 250 ML IV SCH (22:52)
--- NOTE | 2019-10-14 23:09 | Progress Note ---
<HUAN DIAZ - Last Filed: 10/14/19 22:53> Provider Note Provider Note: Procedure note: Arterial line placement. Indication: Strict hemodynamic monitoring. Consent obtained. Area prepped and draped in a sterile fashion. Timeout performed. Justin test performed and showed good collateral blood flow on both the right and left radial/ulnar arteries. First attempt at arterial catheterization was in the right radial artery. Unable to cannulate her artery, as to avoid arterial complication, I aborted procedure and prepped her left radial for line placement. Pressure dressing applied to right radial artery site. Left radial arterial line placement successful on first attempt with no complications. Both left and right hand and wrist perfusion are adequate. Good capillary refill. <DEMETRICE COWAN - Last Filed: 10/15/19 08:04> Provider Note Provider Note: Discussed and agree.
--- NOTE | 2019-10-14 23:26 | RADIOLOGY REPORT (SQ) ---
EXAM DESCRIPTION: XR CHEST 1 VIEW COMPLETED DATE/TME: 10/14/2019 00:00 CLINICAL HISTORY: 79 years Female, Central Line Placement COMPARISON: Same day. NUMBER OF VIEWS/TECHNIQUE: 1/AP FINDINGS: Moderate mixed airspace and interstitial opacities. Increased lung volume. Adequate appearing endotracheal tube. Atherosclerotic vascular disease. Adequate appearing enteric tube partially obscured. Adequate interval appearing right jugular central line tip at the SVC. No pneumothorax. Stable bony thorax. IMPRESSION: Interval line/tube modification.
[2019-10-15] MEDS ORDERED: METHYLPREDNISOLONE INJ 125 MG/2 ML SDV ONE (00:35)
[2019-10-15 00:49] LABS: ARTERIAL BLOOD BASE EXCESS -5.8 mmol/L; ARTERIAL BLOOD FIO2 40%; ARTERIAL BLOOD H2CO3 0.78 mmol/L (1.05-1.35); ARTERIAL BLOOD HCO3 17.4 mmol/L (20-24); ARTERIAL BLOOD O2 SATURATION 90.2 % (94-98); ARTERIAL BLOOD PCO2 25.8 mmHg (35-45); ARTERIAL BLOOD PH 7.45 (7.35-7.45); ARTERIAL BLOOD PO2 54.1 mmHg (80-100); ARTERIAL BLOOD TOTAL CO2 18.2 mmol/L (21-25)
[2019-10-15] MEDS: IPRATROPIUM/ALBUTEROL 0.5-2.5 MG/3 ML AMPUL NEB SCH ×4 (02:07→20:32)
[2019-10-15] MEDS: MINERAL OIL/PETROLATUM,WHITE OPH OINT 3.5 GM OU SCH ×3 (05:08→21:17)
[2019-10-15 05:46] LABS: MEAN CORPUSCULAR HEMOGLOBIN 30.7 pg (27.0-33.4); MEAN CORPUSCULAR VOLUME 93 fl (80-97); PLATELET COUNT 206 10^3/uL (150-450); RED BLOOD COUNT 2.58 10^6/uL (3.72-5.28); RED CELL DISTRIBUTION WIDTH 16.3 % (11.5-14.0)
[2019-10-15] MEDS: METHYLPREDNISOLONE INJ 40 MG/1 ML SDV IV SCH ×2 (05:46→10:21)
[2019-10-15] MEDS: HEPARIN SOD (PORCINE) 5,000 UNIT/ML 1 ML VIAL SUBCUT SCH ×3 (05:46→14:33)
[2019-10-15] MEDS: LEVOTHYROXINE SODIUM 0.075 MG TABLET PO SCH (05:46)
[2019-10-15 05:48] LABS: HEMOGLOBIN 7.9 g/dL (12.0-15.5)
[2019-10-15 06:00] LABS: ANION GAP 7 (5-19); BLOOD UREA NITROGEN 29 mg/dL (7-20); CALCIUM 9.7 mg/dL (8.4-10.2); CARBON DIOXIDE 21 mmol/L (22-30); CHLORIDE 113 mmol/L (98-107); GLUCOSE 126 mg/dL (75-110); TRIGLYCERIDES 119 mg/dL (<150)
[2019-10-15] MEDS ORDERED: NORMAL SALINE INJ/PF 0.9% 10 ML SDV IV PRN (08:09)
[2019-10-15] MEDS: RINGERS SOLUTION,LACTATED 1,000 ML IV PRN ×2 (09:14→23:39)
[2019-10-15] MEDS: FENTANYL CITRATE/PF 600 MCG/60 ML BAG IV PRN (10:17)
[2019-10-15] MEDS: MEROPENEM 500 MG in NORMAL SALINE 50 ML IV SCH ×2 (10:21→22:10)
[2019-10-15] MEDS: AMLODIPINE BESYLATE 10 MG TABLET PO SCH (10:22)
[2019-10-15] MEDS: LOSARTAN POTASSIUM 50 MG TABLET PO SCH (10:22)
[2019-10-15] MEDS: HYDRALAZINE HCL 50 MG TABLET PO SCH ×2 (10:22→21:11)
[2019-10-15] MEDS ORDERED: FENTANYL CITRATE INJ/PF 100 MCG/2 ML AMPUL ONE (10:37)
[2019-10-15] MEDS ORDERED: MIDAZOLAM 2 MG/2 ML INJ ONE (10:37)
[2019-10-15] MEDS ORDERED: MIDAZOLAM 2 MG/2 ML INJ IV ONE (11:16)
[2019-10-15] MEDS ORDERED: FENTANYL CITRATE INJ/PF 100 MCG/2 ML AMPUL IV ONE (11:16)
--- NOTE | 2019-10-15 11:28 | Operative Report ---
Bedside Procedure - History of Present Illness History of Present Illness: ABDIAZIZ BULLARD is a 79 year old female with the past medical history significant for hypertension, asthma, lung cancer (bronchogenic adenocarcinoma, hypothyroidism, GERD, and opiate dependent chronic pain who was discharged from our facility 2 days ago with home O2 (new to the patient) following 5-day treatment for community-acquired pneumonia. Patient arrived to the emergency department via EMS 10.13.19 after a welfare check by law enforcement when patient did not answer multiple phone calls by her children this morning found that the patient was altered, hypoxic on room air with O2 saturation in the mid 70s, and irregular breathing. She received high flow oxygen and BVM support briefly in the field but did not require intubation. She was maintaining oxygen saturations on high flow nasal cannula with FiO2 of 40% in ED. Evaluation in the emergency department revealed leukocytosis with WBC of 22.5, baseline anemia with hemoglobin 9.9, compensated respiratory alkalosis with hypoxia while on nonrebreather, mild JAZMYNE with creatinine of 1.31 and BUN of 66, proBNP of 3000 (no prior studies), and chest x-ray demonstrating worsening pneumonia. Due to the patient's allergies to penicillin vancomycin she was provided Azactam and referred to the hospitalist service for admission and management of healthcare associated pneumonia. She continues to require noninvasive ventilation. Today she appeared to be tiring with an x-ray which was not reassuring. The care team received a call from the hospitalist service because of concerns of her situation. We had been informed of her situation and had been assisting the hospitalist and antibiotic coverage in the CT scan request. Patient to the non-assurance of her ability to continue to maintain her current status she was transferred to the ICU. Due to her respiratory distress and need for BiPAP patient was unable to give a salient consistent history. Did meet with her daughter who states that the patient has lost significant weight. Patient was found down at home and has a sacral wound which was not present when she was discharged from the hospital. Patient would want intubation but for limited period of time according to her and the daughter. She was diagnosed with bronchogenic carcinoma about 5 or 6 years ago and seen at [place]. As best that I can tell she received chemotherapy however we are awaiting old records to see if she had adjuvant radiation therapy. Procedure Procedure: Bedside Flexible Bronchoscopy Pre-Procedure Diagnosis: Atypical Pneumonia, history of bronchogenic carcinoma Post-Procedure Diagnosis: Same Complications: None EBL: None from procedure. Blood already present Findings: Diffuse erythema and bleeding proximal with "spill over" into deeper segments Patient was appropriate identified secondary to chart check, name harsh, ongoing critical care. Sent was obtained from the patient's daughter. Patient had been intubated already with a 7-1/2 ET tube and was on propofol and fentanyl. She was given an additional Versed and fentanyl for the procedure. Immediately on entrance into the 7/2 ET tube there was noted to be blood in the left and right mainstem bronchi. There was diffuse mucosal inflammation and bleeding. The right lung was evaluated first. There appeared to be spillover effect from blood coming from the left lung. No anatomical abnormalities however the mucosa was slightly saucedo. BAL was done to the right middle lobe. There was diffuse blood in all segments which were suctioned and lavaged. Due to the amount of blood deeper evaluation was not done. The left lung was then evaluated. Lingula underwent BAL. In both the left and right lung evaluation for diffuse alveolar hemorrhage was done. There did not appear to be an increase in blood after the third sequential aliquots. There were soft tissue changes and what appeared to be a nodule in the left upper lobe however the amount of blood precluded in evaluation. Biopsy was not done due to the concern of bleeding. There were no large endobronchial lesions. There was no arterial or venous bleeding but there was excessive mucosal bleeding. There appeared to be no trauma related changes to the mucosa. Bleeding was not caused by the bronchoscope. Plan will be to increase steroids, stop anticoagulation, and reevaluate in 24 to 48 hours to determine if the bleeding had stopped. Follow hemoglobin and hematocrit. Indication for Procedure: Respiratory failure. Atypical pneumonia Date: 10/14/19 Provider: DEMETRICE COWAN
[2019-10-15] MEDS: AZITHROMYCIN 500 MG in DEXTROSE 5%-WATER 250 ML IV SCH (11:52)
[2019-10-15] MEDS: GABAPENTIN 100 MG CAPSULE PO SCH ×3 (11:52→22:12)
[2019-10-15] MEDS: FAMOTIDINE 20 MG TABLET PO SCH ×2 (11:52→21:17)
[2019-10-15 12:02] LABS: HEMATOCRIT 24.5 % (36.0-47.0); MEAN CORPUSCULAR HEMOGLOBIN 30.3 pg (27.0-33.4); MEAN CORPUSCULAR HGB CONC 32.5 g/dL (32.0-36.0); MEAN CORPUSCULAR VOLUME 93 fl (80-97); PLATELET COUNT 209 10^3/uL (150-450); RED BLOOD COUNT 2.63 10^6/uL (3.72-5.28); RED CELL DISTRIBUTION WIDTH 16.4 % (11.5-14.0); WHITE BLOOD COUNT 12.3 10^3/uL (4.0-10.5)
[2019-10-15 12:24] LABS: ABSOLUTE MONOCYTES # (MANUAL) 0.2 10^3/uL (0.1-1.4); BASOPHILS % (MANUAL) 0 % (0-2); EOSINOPHILS % (MANUAL) 0 % (0-6); LYMPHOCYTES % (MANUAL) 0 % (13-45); MONOCYTES % (MANUAL) 2 % (3-13); SEGMENTED NEUTROPHILS % (MAN) 98 % (42-78); TOTAL CELLS COUNTED 100
[2019-10-15 12:25] LABS: ANISOCYTOSIS 1+; PLATELET COMMENT ADEQUATE; POLYCHROMASIA SLIGHT; TOXIC GRANULATION 1+
[2019-10-15] MEDS ORDERED: ALBUMIN HUMAN 500 ML IV ONE (14:30)
[2019-10-15] MEDS: LINEZOLID 600 MG/300 ML RTUPB IV SCH ×2 (14:32→21:16)
[2019-10-15 14:41] LABS: FLUID APPEARANCE CLOUDY; FLUID COLOR PINK; FLUID SOURCE LUNG; FLUID TYPE BRONCHIAL WASH; FLUID VISCOSITY LIQUID
[2019-10-15] MEDS: METHYLPREDNISOLONE INJ 125 MG/2 ML SDV IV SCH ×2 (21:12→21:17)
[2019-10-15] MEDS ORDERED: METHYLPREDNISOLONE INJ 40 MG/1 ML SDV IV SCH (22:00)
[2019-10-16] MEDS: IPRATROPIUM/ALBUTEROL 0.5-2.5 MG/3 ML AMPUL NEB SCH ×4 (02:07→20:52)
[2019-10-16 04:53] LABS: HEMATOCRIT 22.5 % (36.0-47.0); MEAN CORPUSCULAR HEMOGLOBIN 30.6 pg (27.0-33.4); MEAN CORPUSCULAR HGB CONC 32.8 g/dL (32.0-36.0); MEAN CORPUSCULAR VOLUME 93 fl (80-97); PLATELET COUNT 200 10^3/uL (150-450); RED BLOOD COUNT 2.41 10^6/uL (3.72-5.28); RED CELL DISTRIBUTION WIDTH 16.3 % (11.5-14.0)
[2019-10-16 04:54] LABS: ARTERIAL BLOOD BASE EXCESS -2.1 mmol/L; ARTERIAL BLOOD H2CO3 1.09 mmol/L (1.05-1.35); ARTERIAL BLOOD HCO3 22.2 mmol/L (20-24); ARTERIAL BLOOD PCO2 36.1 mmHg (35-45); ARTERIAL BLOOD PH 7.41 (7.35-7.45); ARTERIAL BLOOD PO2 68.6 mmHg (80-100); ARTERIAL BLOOD TOTAL CO2 23.3 mmol/L (21-25)
[2019-10-16] MEDS: MINERAL OIL/PETROLATUM,WHITE OPH OINT 3.5 GM OU SCH ×3 (04:59→21:50)
[2019-10-16 05:01] LABS: ARTERIAL BLOOD FIO2 40%
[2019-10-16] MEDS: LEVOTHYROXINE SODIUM 0.075 MG TABLET PO SCH (05:11)
[2019-10-16] MEDS: GABAPENTIN 100 MG CAPSULE PO SCH ×3 (05:11→21:20)
[2019-10-16 05:18] LABS: ANION GAP 7 (5-19); BLOOD UREA NITROGEN 37 mg/dL (7-20); CARBON DIOXIDE 22 mmol/L (22-30); CHLORIDE 107 mmol/L (98-107); GLUCOSE 183 mg/dL (75-110); PHOSPHORUS 3.5 mg/dL (2.5-4.5); POTASSIUM 3.8 mmol/L (3.6-5.0)
[2019-10-16 05:20] LABS: ABSOLUTE LYMPHOCYTES# (MANUAL) 0.7 10^3/uL (0.5-4.7); ABSOLUTE MONOCYTES # (MANUAL) 0.6 10^3/uL (0.1-1.4); BAND NEUTROPHILS % (MANUAL) 1 % (3-5); BASOPHILS % (MANUAL) 0 % (0-2); EOSINOPHILS % (MANUAL) 0 % (0-6); LYMPHOCYTES % (MANUAL) 5 % (13-45); MONOCYTES % (MANUAL) 4 % (3-13); SEGMENTED NEUTROPHILS % (MAN) 90 % (42-78); TOTAL CELLS COUNTED 100
[2019-10-16 05:21] LABS: ANISOCYTOSIS SLIGHT; PLATELET COMMENT ADEQUATE; SCHISTOCYTES SLIGHT; TOXIC GRANULATION SLIGHT
[2019-10-16 05:23] LABS: HEMOGLOBIN 7.4 g/dL (12.0-15.5)
--- NOTE | 2019-10-16 08:13 | PDOC CRITICAL CARE PROG REPORT ---
General Date:: 10/15/19 ICU Day:: 2 Ventilator Day:: 2 Hospital Day:: 3 Events in the past 12 to 24 Hours:: 10.15.19: Patient's respiratory status worsened yesterday requiring intubation and mechanical ventilation. Her PO2 this morning is lower than expected. Chest x-ray is unchanged but shows a mixed interstitial alveolar pattern with honeycombing. Poor IV access and requirement for medications necessitated placement of a central line. She also had an arterial catheter placed for appropriate monitoring of blood pressure and blood gas. Hemoglobin hematocrit slightly lower this morning concern for lab error prompted a repeat analysis 10.14.19: ABDIAZIZ BULLARD is a 79 year old female with the past medical history significant for hypertension, asthma, lung cancer (bronchogenic adenocarcinoma, hypothyroidism, GERD, and opiate dependent chronic pain who was discharged from our facility 2 days ago with home O2 (new to the patient) following 5-day treatment for community-acquired pneumonia. Patient arrived to the emergency department via EMS 10.13.19 after a welfare check by law enforcement when patient did not answer multiple phone calls by her children this morning found that the patient was altered, hypoxic on room air with O2 saturation in the mid 70s, and irregular breathing. She received high f low oxygen and BVM support briefly in the field but did not require intubation. She was maintaining oxygen saturations on high flow nasal cannula with FiO2 of 40% in ED. Evaluation in the emergency department revealed leukocytosis with WBC of 22.5, baseline anemia with hemoglobin 9.9, compensated respiratory alkalosis with hypoxia while on nonrebreather, mild JAZMYNE with creatinine of 1.31 and BUN of 66, proBNP of 3000 (no prior studies), and chest x-ray demonstrating worsening pneumonia. Due to the patient's allergies to penicillin vancomycin she was provided Azactam and referred to the hospitalist service for admission and management of healthcare associated pneumonia. She continues to require noninvasive ventilation. Today she appeared to be tiring with an x-ray which was not reassuring. The care team received a call from the hospitalist service because of concerns of her situation. We had been informed of her situation and had been assisting the hospitalist and antibiotic coverage in the CT scan request. Patient to the non-assurance of her ability to continue to maintain her current status she was transferred to the ICU. Due to her respiratory distress and need for BiPAP patient was unable to give a salient consistent history. Did meet with her daughter who states that the patient has lost significant weight. Patient was found down at home and has a sacral wound which was not present when she was discharged from the hospital. Patient would want intubation but for limited period of time according to her and the daughter. She was diagnosed with bronchogenic carcinoma about 5 or 6 years ago and seen at [place]. As best that I can tell she received chemotherapy however we are awaiting old records to see if she had adjuvant radiation therapy. Review of systems relevant to events:: Patient had blood from ET tube last night and this morning. She underwent flexible bedside bronchoscopy which revealed diffuse mucosal bleeding. The amount of bleeding was extensive enough that lavage was the only treatment that could be offered up. Distinct lesions were noted. Received information on her cancer history--patient had bronchial mass in the right upper lobe with adenocarcinoma. I have not received with the treatment was and I am waiting to communicate with [facility]. She saw a physician named Ge Nesbitt. Reason for ICU Addmission:: Worsening respiratory failure - Medications: Medications reviewed and adjusted accordingly: Yes Vasopressors:: None Sedation:: Propofol and Fentanyl Physical Exam Vital Signs: Temp Pulse Resp BP Pulse Ox 99.1 F 71 16 113/53 L 92 10/15/19 06:02 10/15/19 02:08 10/15/19 06:02 10/15/19 06:02 10/15/19 06:02 Pulse Oximeter Continuous Start: 10/13/19 18:04 Freq: RTQ4 Status: Complete Protocol: Document 10/14/19 11:34 [facility] (Rec: 10/14/19 11:35 [facility] [id number]) Pulse Oximetry Assessment Oxygen Saturation (92-100) 100 Oxygen Delivery Method Bi-pap Fraction of Inspired Oxygen (FIO2) 60 Equipment Usage Equipment in Use Continuous SpO2 Machine # [id number] Intake & Output 10/14/19 10/15/19 10/16/19 06:59 06:59 06:59 Intake Total 1533 2022 Output Total 098 965 Balance 783 1057 Weight 66.8 kg 68.4 kg Weight/Height Weight 68.4 kg Height 5 ft General appearance: PRESENT: no acute distress, obese Exam: Intubated nontoxic ill 79-year-old female no active distress Head exam: PRESENT: atraumatic, normocephalic Eye exam: PRESENT: conjunctiva pink, PERRLA. ABSENT: conjunctival injection, nystagmus, scleral icterus Mouth exam: PRESENT: dry mucosa, neck supple Teeth exam: PRESENT: poor dentation Neck exam: ABSENT: carotid bruit, JVD, lymphadenopathy, thyromegaly Respiratory exam: PRESENT: crackles - Dry crackles bilaterally., decreased breath sounds, unlabored. ABSENT: tachypnea, wheezes Cardiovascular exam: PRESENT: RRR, +S1, +S2. ABSENT: rubs Pulses: PRESENT: +1 pedal pulses bilateral Vascular exam: PRESENT: normal capillary refill. ABSENT: pallor GI/Abdominal exam: PRESENT: normal bowel sounds, soft. ABSENT: ascites, dis tended, guarding, mass, organolmegaly, rebound, tenderness Rectal exam: PRESENT: deferred Gentrourinary exam: PRESENT: indwelling catheter Extremities exam: ABSENT: tenderness Musculoskeletal exam: PRESENT: normal inspection. ABSENT: deformity, dislocation Neurological exam: PRESENT: altered - Intubated. GCS: Psychiatric exam: PRESENT: appropriate affect Skin exam: PRESENT: dry, intact, warm. ABSENT: cyanosis, jaundice, mottled, pallor, rash Tubes/Lines: PRESENT: Endotracheal Tube, Central Line, Arterial Catheter, Other - [facility] Laboratory/Radiographs Laboratory Results: 10/15/19 05:36 10/15/19 05:36 10/14/19 10/14/19 10/14/19 10:25 19:58 19:58 WBC RBC Hgb Hct MCV MCH MCHC RDW Plt Count Carbonic Acid 0.87 L HCO3/H2CO3 Ratio 22:1 ABG pH 7.44 ABG pCO2 29.0 L ABG pO2 97.8 ABG HCO3 19.3 L ABG O2 Saturation 97.7 ABG Base Excess -4.0 FiO2 60% Sodium 138.7 Potassium 3.7 Chloride 110 H Carbon Dioxide 21 L Anion Gap 8 BUN 33 H Creatinine 0.84 Est GFR ( Amer) > 60 Glucose 103 Calcium 9.5 Total Bilirubin 0.8 AST 102 H Alkaline Phosphatase 82 Total Protein 5.7 L Albumin 2.8 L Triglycerides 161 H 10/15/19 10/15/19 10/15/19 00:20 05:36 05:36 WBC 14.0 H RBC 2.58 L Hgb 7.9 L Hct 24.0 L MCV 93 MCH 30.7 MCHC 33.0 RDW 16.3 H Plt Count 206 Carbonic Acid 0.78 L HCO3/H2CO3 Ratio 22:1 ABG pH 7.45 ABG pCO2 25.8 L ABG pO2 54.1 L ABG HCO3 17.4 L ABG O2 Saturation 90.2 L ABG Base Excess -5.8 FiO2 40% Sodium 140.5 Potassium 4.0 Chloride 113 H Carbon Dioxide 21 L Anion Gap 7 BUN 29 H Creatinine 0.75 Est GFR ( Amer) > 60 Glucose 126 H Calcium 9.7 Total Bilirubin AST Alkaline Phosphatase Total Protein Albumin Triglycerides 119 10/13/19 10/14/19 13:25 19:58 Creatine Kinase 503 H NT-Pro-B Natriuret Pep 3020 H Impressions: Cervical Spine CT 10/13/19 13:38 IMPRESSION: No acute fracture or malalignment of the cervical spine. Other degenerative findings as detailed above. Head CT 10/13/19 13:38 IMPRESSION: No acute intracranial abnormality. EVIDENCE OF ACUTE STROKE: NO. Chest CT 10/14/19 00:00 IMPRESSION: Extensive centrilobular emphysema. Extensive airspace disease in both lungs as described. This appears relatively stable. Chest X-Ray 10/14/19 00:00 IMPRESSION: Interval line/tube modification. All labs, radiographs, diagnostic studies and EKGs were personally reviewed: Yes In addition, reports of radiographic and diagnostic studies were read: Yes Assessment and Plan - Diagnosis (1) Acute respiratory failure with hypoxia Is this a current diagnosis for this admission?: Yes (2) Bilateral pulmonary infiltrates on CXR Is this a current diagnosis for this admission?: Yes (3) Hx of bronchogenic malignancy Is this a current diagnosis for this admission?: Yes (4) Segmental bullous emphysema Is this a current diagnosis for this admission?: Yes (5) Atypical pneumonia Is this a current diagnosis for this admission?: Yes (6) Sacral decubitus ulcer, stage III Is this a current diagnosis for this admission?: Yes Plan Summary: 10.15.19: Patient has significant mucosal bleeding. Have stopped heparin and will contin ue antibiotics. The amount of mucosal bleeding prohibited a more extensive evaluation. Plan is to increase steroids stop any anticoagulation and reevaluate in 24 to 48 hours. I am concerned that she has a malignancy. There does not appear to be any evidence of diffuse alveolar hemorrhage. 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 There are still trying to determine the treatment regimen that she received however it is noted that she did not have surgery Family updated at bedside Critical Time Critical Time (minutes): 60 Level of Care: ICU -: 1. The care of a critical patient is a dynamic process. This note is a cash posting representative synopsis but static in nature. The timeframe for treatments given in order is not necessary the actual time these treatments may have been done. 2. This patient requires critical care secondary to ongoing requirements for therapy not offered or safe outside the critical care environment. Transfer to a lower level of care with altered life or limb morbidity and mortality. 3. Multidisciplinary rounds completed. 4. ABCDE bundle addressed. 5. MPOA: Daughter,
--- NOTE | 2019-10-16 08:59 | RADIOLOGY REPORT (SQ) ---
EXAM DESCRIPTION: CHEST SINGLE VIEW COMPLETED DATE/TIME: 10/16/2019 6:16 am REASON FOR STUDY: atypical pneumonia COMPARISON: 10/14/2019 NUMBER OF VIEWS: One view. TECHNIQUE: Single frontal radiographic image of the chest acquired. LIMITATIONS: None. FINDINGS: LUNGS AND PLEURA: Bilateral airspace disease with relative sparing of the left upper lung is not significantly changed. No pneumothorax. MEDIASTINUM AND HEART: Stable heart size and mediastinal structures. SUPPORT DEVICES: Appropriate location without change. BONY STRUCTURES: No acute findings. HARDWARE: None. OTHER: No other significant finding. IMPRESSION: STABLE APPEARANCE OF THE CHEST. SUPPORT DEVICES UNCHANGED. Reading location - IP/workstation name: [email or web address]
[2019-10-16] MEDS: FENTANYL CITRATE/PF 600 MCG/60 ML BAG IV PRN ×2 (10:32→22:58)
[2019-10-16] MEDS: MEROPENEM 500 MG in NORMAL SALINE 50 ML IV SCH ×2 (10:40→21:17)
[2019-10-16] MEDS: LINEZOLID 600 MG/300 ML RTUPB IV SCH ×2 (10:40→21:50)
[2019-10-16] MEDS: RINGERS SOLUTION,LACTATED 1,000 ML IV PRN ×3 (10:40→21:51)
[2019-10-16] MEDS: AZITHROMYCIN 500 MG in DEXTROSE 5%-WATER 250 ML IV SCH (10:40)
[2019-10-16] MEDS: LOSARTAN POTASSIUM 50 MG TABLET PO SCH (10:43)
[2019-10-16] MEDS: AMLODIPINE BESYLATE 10 MG TABLET PO SCH (10:43)
[2019-10-16] MEDS: HYDRALAZINE HCL 50 MG TABLET PO SCH (10:43)
[2019-10-16] MEDS: FAMOTIDINE 20 MG TABLET PO SCH ×2 (10:43→21:20)
[2019-10-16] MEDS: METHYLPREDNISOLONE INJ 125 MG/2 ML SDV IV SCH ×2 (10:43→21:20)
--- NOTE | 2019-10-16 14:19 | PDOC CRITICAL CARE PROG REPORT ---
General Date:: 10/16/19 ICU Day:: 3 Ventilator Day:: 3 Hospital Day:: 4 Events in the past 12 to 24 Hours:: Patient had bedside bronchoscopy which revealed extensive mucosal bleeding of the proximal airways. Hemoglobin and hematocrit are slightly lower but did not really require transfusion Review of systems relevant to events:: No further bleeding from ET tube. Was placed on SBT this morning however had increase in respiratory rate after 3 to 4 hours and was placed back on traditional conventional mode ventilation. Her pain and discomfort have been controlled with fentanyl. Notably she has enterococcus growing in her urine which is pansensitive. She was given high-dose steroids for the last 24 hours to attenuate the inflammatory process and bleeding in her lung. Reason for ICU Addmission:: Worsening respiratory failure - Medications: Medications reviewed and adjusted accordingly: Yes Vasopressors:: None Sedation:: Propofol and Fentanyl Physical Exam Vital Signs: Temp Pulse Resp BP Pulse Ox 97.5 F 67 0 L 117/55 L 95 10/16/19 07:30 10/16/19 02:07 10/16/19 06:52 10/16/19 06:53 10/16/19 07:30 Pulse Oximeter Continuous Start: 10/13/19 18:04 Freq: RTQ4 Status: Complete Protocol: Document 10/14/19 11:34 [facility] (Rec: 10/14/19 11:35 [facility] [id number]) Pulse Oximetry Assessment Oxygen Saturation (92-100) 100 Oxygen Delivery Method Bi-pap Fraction of Inspired Oxygen (FIO2) 60 Equipment Usage Equipment in Use Continuous SpO2 Machine # [id number] Intake & Output 10/15/19 10/16/19 10/17/19 06:59 06:59 06:59 Intake Total 2021 8622 Output Total 968 615 Balance 1050 2556 Weight 68.4 kg 71.3 kg Weight/Height Weight 71.3 kg Height 5 ft General appearance: PRESENT: no acute distress, cooperative, obese. ABSENT: disheveled, hard of hearing, mild distress, severe distress, thin, well- developed, well-nourished, other Exam: Intubated nontoxic 79-year-old female no acute distress, responsive Head exam: PRESENT: atraumatic, normocephalic Eye exam: PRESENT: conjunctiva pink, PERRLA. ABSENT: conjunctival injection, nystagmus Mouth exam: PRESENT: dry mucosa Neck exam: ABSENT: carotid bruit, JVD, lymphadenopathy, thyromegaly Respiratory exam: PRESENT: crackles, rhonchi - bilaterally. ABSENT: rales, wheezes Cardiovascular exam: PRESENT: RRR, +S1, +S2. ABSENT: rubs, systolic murmur Pulses: PRESENT: +1 pedal pulses bilateral GI/Abdominal exam: PRESENT: normal bowel sounds, soft. ABSENT: ascites, distended, guarding, mass, organolmegaly, rebound, tenderness Rectal exam: PRESENT: deferred Gentrourinary exam: PRESENT: indwelling catheter Extremities exam: ABSENT: pedal edema, tenderness Musculoskeletal exam: ABSENT: deformity, dislocation Neurological exam: PRESENT: altered - Intubated. GCS: 3-2t (attempts to speak)- 6. No focal deficits Psychiatric exam: PRESENT: appropriate affect. ABSENT: agitated, homicidal ideation, suicidal ideation Skin exam: PRESENT: dry, intact, normal color, warm. ABSENT: cyanosis, mottled, pallor, rash Tubes/Lines: PRESENT: Endotracheal Tube, Central Line, Arterial Catheter - Neumann catheter. Lines and tubes placed. 10.14.19 Laboratory/Radiographs Laboratory Results: 10/16/19 04:38 10/16/19 04:38 10/15/19 10/15/19 10/15/19 05:36 11:30 11:30 WBC 12.3 H RBC 2.63 L Hgb 8.0 L Hct 24.5 L MCV 93 MCH 30.3 MCHC 32.5 RDW 16.4 H Plt Count 209 Seg Neutrophils % Not Reportable Carbonic Acid HCO3/H2CO3 Ratio ABG pH ABG pCO2 ABG pO2 ABG HCO3 ABG O2 Saturation ABG Base Excess FiO2 Sodium Potassium Chloride Carbon Dioxide Anion Gap BUN Creatinine Est GFR ( Amer) Glucose Calcium Phosphorus Magnesium C-Reactive Protein 188.3 H Fluid Type BRONCHIAL WASH Fluid Source LUNG Fluid Color PINK Fluid Appearance CLOUDY Fluid Viscosity LIQUID Fluid WBC 67 Fluid RBC 4400 10/16/19 10/16/19 10/16/19 04:38 04:38 04:38 WBC 14.0 H RBC 2.41 L Hgb 7.4 L Hct 22.5 L MCV 93 MCH 30.6 MCHC 32.8 RDW 16.3 H Plt Count 200 Seg Neutrophils % Not Reportable Carbonic Acid 1.09 HCO3/H2CO3 Ratio 20:1 ABG pH 7.41 ABG pCO2 36.1 ABG pO2 68.6 L ABG HCO3 22.2 ABG O2 Saturation 94.0 ABG Base Excess -2.1 FiO2 40% Sodium 136.4 L Potassium 3.8 Chloride 107 Carbon Dioxide 22 Anion Gap 7 BUN 37 H Creatinine 0.77 Est GFR ( Amer) > 60 Glucose 183 H Calcium 10.0 Phosphorus 3.5 Magnesium 2.1 C-Reactive Protein Fluid Type Fluid Source Fluid Color Fluid Appearance Fluid Viscosity Fluid WBC Fluid RBC 10/13/19 15:42 Clean Catch Midstream Urine Culture - Final Enterococcus Faecalis(Group D) 10/13/19 10/14/19 13:25 19:58 Creatine Kinase 503 H NT-Pro-B Natriuret Pep 3020 H Impressions: Cervical Spine CT 10/13/19 13:38 IMPRESSION: No acute fracture or malalignment of the cervical spine. Other degenerative findings as detailed above. Head CT 10/13/19 13:38 IMPRESSION: No acute intracranial abnormality. EVIDENCE OF ACUTE STROKE: NO. Chest CT 10/14/19 00:00 IMPRESSION: Extensive centrilobular emphysema. Extensive airspace disease in both lungs as described. This appears relatively stable. All labs, radiographs, diagnostic studies and EKGs were personally reviewed: Yes In addition, reports of radiographic and diagnostic studies were read: Yes Assessment and Plan - Diagnosis (1) Acute respiratory failure with hypoxia Is this a current diagnosis for this admission?: Yes (2) Bilateral pulmonary infiltrates on CXR Is this a current diagnosis for this admission?: Yes (3) Hx of bronchogenic malignancy Is this a current diagnosis for this admission?: Yes (4) Segmental bullous emphysema Is this a current diagnosis for this admission?: Yes (5) Atypical pneumonia Is this a current diagnosis for this admission?: Yes (6) Sacral decubitus ulcer, stage III Is this a current diagnosis for this admission?: Yes Plan Summary: 10.16.19: Patient is too weak to be liberated from the mechanical ventilation. We are concerned with the diffuse interstitial alveolar pattern of her x-ray and the concern is for possible malignancy especially given the amount of bleeding that was seen. We will continue the steroids and in 24 hours repeat bronchoscopy to see if the bleeding has improved. Hopefully will be able to determine where the source is if any. Pathology is still pending on the BAL done. Thus far no microbiological sources are found in the BAL sampling. She does have enterococcus in the urine and it is appropriately treated with antibiotics she is currently on. Given the amount of blood seen on bronchoscopy, evaluation for diffuse alveolar hemorrhage was difficult. There was not an absolute increase on sequential aliquots however the exam was difficult secondary to the mucosal irritation. We will attempt to rule this out tomorrow. DVT chemical prophylaxis has been held and will continue mechanical prophylaxis. Continue antibiotics. Patient has chronic pain syndrome and on narcotics. Her pain and sedation have been controlled with fentanyl. Her hemodynamics have not been labile in the last 12 to 18 hours. Enteral feeds to be continued Daughter who is the medical power of commercial attorney and granddaughter were updated at bedside. Plans for the next 24 hours were discussed. 10.15.19: Patient has significant mucosal bleeding. Have stopped heparin and will continue antibiotics. The amount of mucosal bleeding prohibited a more extensive evaluation. Plan is to increase steroids stop any anticoagulation and reevaluate in 24 to 48 hours. I am concerned that she has a malignancy. There does not appear to be any evidence of diffuse alveolar hemorrhage. 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 There are still trying to determine the treatment regimen that she received however it is noted that she did not have surgery Family updated at bedsidel Critical Time Critical Time (minutes): 45 Level of Care: ICU Anticipated discharge: Acute Rehab Within: within 48 hours -: 1. The care of a critical patient is a dynamic process. This note is a credit and collections representative synopsis but static in nature. The timeframe for treatments given in order is not necessary the actual time these treatments may have been done. 2. This patient requires critical care secondary to ongoing requirements for therapy not offered or safe outside the critical care environment. Transfer to a lower level of care with altered life or limb morbidity and mortality. 3. Multidisciplinary rounds completed. 4. ABCDE bundle addressed. 5. MPOA: Daughter Hortensia. Full code
[2019-10-17] MEDS: IPRATROPIUM/ALBUTEROL 0.5-2.5 MG/3 ML AMPUL NEB SCH ×2 (02:41→08:29)
[2019-10-17 04:02] LABS: ARTERIAL BLOOD BASE EXCESS -3.6 mmol/L; ARTERIAL BLOOD H2CO3 1.11 mmol/L (1.05-1.35); ARTERIAL BLOOD HCO3 21.2 mmol/L (20-24); ARTERIAL BLOOD O2 SATURATION 94.1 % (94-98); ARTERIAL BLOOD PCO2 36.8 mmHg (35-45); ARTERIAL BLOOD PH 7.38 (7.35-7.45); ARTERIAL BLOOD PO2 70.8 mmHg (80-100); ARTERIAL BLOOD TOTAL CO2 22.3 mmol/L (21-25)
[2019-10-17 04:05] LABS: ARTERIAL BLOOD FIO2 40%; HEMATOCRIT 23.3 % (36.0-47.0); MEAN CORPUSCULAR HEMOGLOBIN 30.8 pg (27.0-33.4); MEAN CORPUSCULAR HGB CONC 33.1 g/dL (32.0-36.0); MEAN CORPUSCULAR VOLUME 93 fl (80-97); PLATELET COUNT 199 10^3/uL (150-450); RED CELL DISTRIBUTION WIDTH 16.3 % (11.5-14.0); WHITE BLOOD COUNT 18.9 10^3/uL (4.0-10.5)
[2019-10-17 04:09] LABS: HEMOGLOBIN 7.7 g/dL (12.0-15.5)
[2019-10-17 04:20] LABS: ALBUMIN 2.5 g/dL (3.5-5.0); ALKALINE PHOSPHATASE 69 U/L (38-126); ANION GAP 6 (5-19); ASPARTATE AMINO TRANSFERASE 47 U/L (14-36); BILIRUBIN,DIRECT 0.2 mg/dL (0.0-0.4); BILIRUBIN,TOTAL 0.5 mg/dL (0.2-1.3); BLOOD UREA NITROGEN 45 mg/dL (7-20); CARBON DIOXIDE 23 mmol/L (22-30); CHLORIDE 106 mmol/L (98-107); GLUCOSE 162 mg/dL (75-110); PHOSPHORUS 3.8 mg/dL (2.5-4.5); POTASSIUM 4.4 mmol/L (3.6-5.0); TOTAL PROTEIN 4.8 g/dL (6.3-8.2)
[2019-10-17 04:23] LABS: ABSOLUTE LYMPHOCYTES# (MANUAL) 0.6 10^3/uL (0.5-4.7); ABSOLUTE MONOCYTES # (MANUAL) 0.4 10^3/uL (0.1-1.4); ANISOCYTOSIS 1+; BASOPHILS % (MANUAL) 0 % (0-2); EOSINOPHILS % (MANUAL) 0 % (0-6); HYPOCHROMASIA 2+; LYMPHOCYTES % (MANUAL) 3 % (13-45); MONOCYTES % (MANUAL) 2 % (3-13); PLATELET COMMENT ADEQUATE; SEGMENTED NEUTROPHILS % (MAN) 95 % (42-78); TOTAL CELLS COUNTED 100
[2019-10-17 04:25] LABS: INTERNATIONAL RATION (INR) 1.05; PARTIAL THROMBOPLASTIN TIME 27.4 SEC (23.5-35.8); PROTHROMBIN TIME 13.7 SEC (11.4-15.4)
[2019-10-17] MEDS: LEVOTHYROXINE SODIUM 0.075 MG TABLET PO SCH (05:18)
[2019-10-17] MEDS: MINERAL OIL/PETROLATUM,WHITE OPH OINT 3.5 GM OU SCH ×2 (05:18→13:39)
[2019-10-17] MEDS: GABAPENTIN 100 MG CAPSULE PO SCH ×2 (05:18→13:30)
[2019-10-17 09:11] LABS: URINE SODIUM < 5 mmol/L (30-90)
[2019-10-17 09:31] LABS: OSMOLALITY,URINE 575 mOsm/kg (300-900)
--- NOTE | 2019-10-17 09:57 | RADIOLOGY REPORT (SQ) ---
EXAM DESCRIPTION: CHEST SINGLE VIEW COMPLETED DATE/TIME: 10/17/2019 6:20 am REASON FOR STUDY: respiratory failure COMPARISON: 10/16/2019 NUMBER OF VIEWS: One view. TECHNIQUE: Single frontal radiographic image of the chest acquired. LIMITATIONS: None. FINDINGS: LUNGS AND PLEURA: Bilateral airspace disease with improved aeration in the right lung. No pneumothorax. MEDIASTINUM AND HEART: Stable heart size and mediastinal structures. SUPPORT DEVICES: Appropriate location without change. BONY STRUCTURES: No acute findings. HARDWARE: None. OTHER: No other significant finding. IMPRESSION: Slight improvement. No pneumothorax. Reading location - IP/workstation name: [email or web address]
[2019-10-17] MEDS: MEROPENEM 500 MG in NORMAL SALINE 50 ML IV SCH (10:05)
[2019-10-17] MEDS: AMLODIPINE BESYLATE 10 MG TABLET PO SCH (10:06)
[2019-10-17] MEDS: FAMOTIDINE 20 MG TABLET PO SCH (10:06)
[2019-10-17] MEDS: LOSARTAN POTASSIUM 50 MG TABLET PO SCH (10:07)
[2019-10-17] MEDS: METHYLPREDNISOLONE INJ 125 MG/2 ML SDV IV SCH (10:08)
[2019-10-17] MEDS: LINEZOLID 600 MG/300 ML RTUPB IV SCH (10:09)
[2019-10-17] MEDS ORDERED: FENTANYL CITRATE INJ/PF 100 MCG/2 ML AMPUL IV ONE (10:33)
[2019-10-17] MEDS ORDERED: MIDAZOLAM 2 MG/2 ML INJ IV ONE (10:33)
[2019-10-17] MEDS ORDERED: FENTANYL CITRATE INJ/PF 100 MCG/2 ML AMPUL ONE (10:38)
[2019-10-17] MEDS ORDERED: MIDAZOLAM 2 MG/2 ML INJ ONE (10:38)
[2019-10-17] MEDS: AZITHROMYCIN 500 MG in DEXTROSE 5%-WATER 250 ML IV SCH (10:49)
--- NOTE | 2019-10-17 11:09 | Operative Report ---
Bedside Procedure - History of Present Illness History of Present Illness: ABDIAZIZ BULLARD is a 79 year old female with the past medical history significant for hypertension, asthma, lung cancer (bronchogenic adenocarcinoma, hypothyroidism, GERD, and opiate dependent chronic pain who was discharged from our facility with home O2 (new to the patient) following 5-day treatment for community-acquired pneumonia. She had had a previous bronchoscopy which showed significant mucosal irritation and bleeding. She was started on high-dose steroids and antibiotics. She has a known history of right upper lobe carcinoma that was treated a number of years ago. She has persistent right upper lobe changes on x-ray and the concern is for recrudescence of this tumor. Because of the amount of bleeding and the inability to determine source fiberoptic evaluation endoscopically of the upper pharyngeal and cephalad trachea was done in addition to flexible bronchoscopy through an already present ET tube. Procedure Procedure: Bedside Flexible endoscopic evaluation of nasopharyngeal airway as well as bronchoscopy Pre-Procedure Diagnosis: Atypical Pneumonia, history of bronchogenic carcinoma Post-Procedure Diagnosis: Same Complications: None EBL: None from procedure. Blood already present Findings: Nasal-pharyngeal:No bleeding, no tumors Bronchoscopy: Blood noted in right main stem bronchus originating from RUL. Patient was appropriately identified secondary to chart check, name harsh, ongoing critical care. Consent was obtained from the patient's daughter, Mayi Patient had been intubated already with a 7-/2 ET tube and was on and fentanyl. She was given an additional Versed and fentanyl for the procedure. Evaluation of Nasal-pharyngeal region, Cephalaud to trachea: Both nares were evaluated with a smaller caliber disposable fiberoptic scope. Evaluation of the crystal-eustachian tube region showed no tumors masses or bleeding. Evaluation of the soft tissue and pharynx showed no bleeding. Next the scope was placed into the mouth and evaluation of the posterior pharynx showed no bleeding no injury no trauma no tumors or masses. Evaluation under bronchoscopy: There was blood noted in the ET tube at the distal aspect. Blood was in the right mainstem bronchus with some mild spillover effect in the left lung. Blood appeared to be originating from the right upper lobe. The right upper lobe was friable with mucosal bleeding and discoloration of the mucous membranes. There was anatomical distortion as well. Cytology was taken from this region but biopsy not done secondary to the amount of bleeding that was present. Patient tolerated procedure well there were no complications To be referred to tertiary care center. Procedure excludes critical care time Indication for Procedure: Hemoptysis Date: 10/14/19 Provider: DEMETRICE COWAN
[2019-10-17] MEDS: FENTANYL CITRATE/PF 600 MCG/60 ML BAG IV PRN (11:24)
--- NOTE | 2019-10-17 11:47 | PDOC CRITICAL CARE PROG REPORT ---
General Date:: 10/17/19 ICU Day:: 4 Ventilator Day:: 4 Hospital Day:: 5 Events in the past 12 to 24 Hours:: Patient had low urine output yesterday necessitating colloid infusion and increase in IV fluids. She has not been labile hemodynamically. Still has some bleeding from ET tube. Cultures and cytology still pending. Hemoglobin slowly trending down. Has not required transfusion Review of systems relevant to events:: Blood from ET tube Patient had a fiberoptic evaluation of the pharynx and nasal mucosa was repeat bronchoscopy today. Evaluation of the more cephalad pharyngeal nasal structures was done to assure no bleeding or masses from above the trachea. Bronchoscopy of the lung showed bleeding coming from the right upper lobe with extensive mucosal and anatomical changes and derangement. Cytological specimens were sent Reason for ICU Addmission:: Worsening respiratory failure - Medications: Medications reviewed and adjusted accordingly: Yes Vasopressors:: None Sedation:: Propofol and Fentanyl Physical Exam Vital Signs: Temp Pulse Resp BP Pulse Ox 98.8 F 58 L 19 113/41 L 93 10/17/19 06:00 10/17/19 02:40 10/17/19 07:16 10/16/19 14:00 10/17/19 07:16 Pulse Oximeter Continuous Start: 10/13/19 18:04 Freq: RTQ4 Status: Complete Protocol: Document 10/14/19 11:34 [facility] (Rec: 10/14/19 11:35 [facility] [id number]) Pulse Oximetry Assessment Oxygen Saturation (92-100) 100 Oxygen Delivery Method Bi-pap Fraction of Inspired Oxygen (FIO2) 60 Equipment Usage Equipment in Use Continuous SpO2 Machine # [id number] Intake & Output 10/16/19 10/17/19 10/18/19 06:59 06:59 06:59 Intake Total 5797 3527 Output Total 813 936 Balance 3079 5015 Weight 71.3 kg 75.2 kg Weight/Height Weight 75.2 kg Height 5 ft General appearance: PRESENT: no acute distress, cooperative, morbidly obese Exam: Intubated elderly nontoxic 79-year-old female no active distress, responsive to stimulus Head exam: PRESENT: atraumatic, normocephalic Eye exam: PRESENT: conjunctiva pink, PERRLA. ABSENT: conjunctival injection, nystagmus, scleral icterus Ear exam: PRESENT: normal external ear exam Mouth exam: PRESENT: moist. ABSENT: laceration Teeth exam: PRESENT: poor dentation, other - Partially edentulous Throat exam: ABSENT: post pharyngeal erythema, tonsillar erythema - Seen on FEE of upper airway, tonsillar exudate, tonsillogmegaly Neck exam: PRESENT: other - RIJ CVC clean, dry and intact. No bleeding or erythema. ABSENT: carotid bruit, JVD, lymphadenopathy, thyromegaly Respiratory exam: PRESENT: clear to auscultation meseret, crackles - Right lung, unlabored. ABSENT: rales, rhonchi, tachypnea, wheezes Cardiovascular exam: PRESENT: RRR. ABSENT: diastolic murmur, rubs, systolic murmur GI/Abdominal exam: PRESENT: normal bowel sounds, soft. ABSENT: ascites, distended, guarding, mass, organolmegaly, rebound, tenderness Rectal exam: PRESENT: deferred Gentrourinary exam: PRESENT: indwelling catheter Extremities exam: ABSENT: pedal edema, tenderness Musculoskeletal exam: ABSENT: deformity, dislocation Neurological exam: PRESENT: awake. ABSENT: motor sensory deficit - Intubated. GCS: 3-2t-6 Attempts to speak on vent Psychiatric exam: ABSENT: agitated, homicidal ideation Focused psych exam: ABSENT: psychomotor agitation, restlessness Skin exam: PRESENT: dry, intact, normal color, warm. ABSENT: cyanosis, mottled, pallor, petechiae, rash Tubes/Lines: PRESENT: Endotracheal Tube, Central Line, Arterial Catheter - Neumann present and needed for low uop and critical care I/O. All lines and tubes placed 10.14.19 evening Laboratory/Radiographs Laboratory Results: 10/17/19 03:45 10/17/19 03:45 10/17/19 10/17/19 10/17/19 03:45 03:45 03:45 WBC 18.9 H RBC 2.50 L Hgb 7.7 L Hct 23.3 L MCV 93 MCH 30.8 MCHC 33.1 RDW 16.3 H Plt Count 199 Seg Neutrophils % Not Reportable Carbonic Acid 1.11 HCO3/H2CO3 Ratio 19:1 ABG pH 7.38 ABG pCO2 36.8 ABG pO2 70.8 L ABG HCO3 21.2 ABG O2 Saturation 94.1 ABG Base Excess -3.6 FiO2 40% Sodium 135.3 L Potassium 4.4 Chloride 106 Carbon Dioxide 23 Anion Gap 6 BUN 45 H Creatinine 0.91 Est GFR ( Amer) > 60 Glucose 162 H Calcium 10.0 Phosphorus 3.8 Magnesium 2.2 Total Bilirubin 0.5 AST 47 H Alkaline Phosphatase 69 Total Protein 4.8 L Albumin 2.5 L 10/13/19 20:50 Sputum Gram Stain - Final 10/13/19 20:50 Sputum Sputum Culture - Final Yeast, Not Ofelia Albicans Normal Maame 10/13/19 10/14/19 13:25 19:58 Creatine Kinase 503 H NT-Pro-B Natriuret Pep 3020 H Impressions: Cervical Spine CT 10/13/19 13:38 IMPRESSION: No acute fracture or malalignment of the cervical spine. Other degenerative findings as detailed above. Head CT 10/13/19 13:38 IMPRESSION: No acute intracranial abnormality. EVIDENCE OF ACUTE STROKE: NO. Chest CT 10/14/19 00:00 IMPRESSION: Extensive centrilobular emphysema. Extensive airspace disease in both lungs as described. This appears relatively stable. All labs, radiographs, diagnostic studies and EKGs were personally reviewed: Yes In addition, reports of radiographic and diagnostic studies were read: Yes Assessment and Plan - Diagnosis (1) Acute respiratory failure with hypoxia Is this a current diagnosis for this admission?: Yes (2) Bilateral pulmonary infiltrates on CXR Is this a current diagnosis for this admission?: Yes (3) Hx of bronchogenic malignancy Is this a current diagnosis for this admission?: Yes Plan: Mucosa and anatomy distorted on RUl Bronchoscopy (4) Atypical pneumonia Is this a current diagnosis for this admission?: Yes (5) Segmental bullous emphysema Is this a current diagnosis for this admission?: Yes (7) Sacral decubitus ulcer, stage III Is this a current diagnosis for this admission?: Yes Plan Summary: 10.17.19: We will attempt to liberate the patient from the ventilator today. However with her intubated we will take the opportunity to reevaluate airways to see if bleeding has improved and also determine a source. We will also perform upper airway evaluation with a small videoscope to determine if bleeding is from the more cephalad airways. Patient has slight hypercalcemia and hyponatremia which are suspicious for an underlying malignancy. Have sent an intact PTH and ionized calcium as well as urine sodium and osmolarity studies. Chest x-ray has dramatically improved. Unsure whether this is related to antibiotics or steroid treatment. Will need to be vigilant to watch for recr udescence as each 1 of these treatments are reduced or discontinued. Unfortunately procalcitonin is not available which would assist in educating medications. The patient underwent evaluation of the upper airway including nasal mucosa and posterior pharynx and a repeat bronchoscopy. This was done to assure that there was no bleeding emanating from the more cephalad portions of her anatomy given the amount of blood that was in her airway on her first bronchoscopy. Her first bronchoscopy showed extensive mucosal irritation and she was placed on high-dose steroids and antibiotics. Her chest x-ray has improved as noted above but the right upper lobe still has mixed interstitial alveolar pattern. Bronchoscopy today showed bleeding coming from that area and the mucosa and anatomy were distorted raising suspicion of recurrence of her bronchogenic carcinoma. I am suspicious that her chest x-ray and atypical pneumonia are related to aspirated blood products. With the steroids and antibiotics on board there may have been improvement secondary to an underlying secondary infection and infl ammation. In addition the steroids may have attenuated some of the inflammation from malignancy. My concern is that the bleeding may worsen and since we have a source obviously source control is of paramount importance. A lengthy discussion with the family regarding the possibility that this is recurrence of malignancy but more importantly to stop further bleeding. Our institution does not have the interventional capability to embolize vessels bronchial segments. Furthermore we do not have the equipment available to control massive hemoptysis should it worsen. Plans are for transfer to a higher level of care that can provide interventional radiology support and both pulmonary and oncological assistance. Patient is stable for transport. 19: Patient is too weak to be liberated from the mechanical ventilation. We are concerned with the diffuse interstitial alveolar pattern of her x-ray and the concern is for possible malignancy especially given the amount of bleeding that was seen. We will continue the steroids and in 24 hours repeat bronchoscopy to see if the bleeding has improved. Hopefully will be able to determine where the source is if any. Pathology is still pending on the BAL done. Thus far no microbiological sources are found in the BAL sampling. She does have enterococcus in the urine and it is appropriately treated with antibiotics she is currently on. Given the amount of blood seen on bronchoscopy, evaluation for diffuse alveolar hemorrhage was difficult. There was not an absolute increase on sequential aliquots however the exam was difficult secondary to the mucosal irritation. We will attempt to rule this out tomorrow. DVT chemical prophylaxis has been held and will continue mechanical prophylaxis. Continue antibiotics. Patient has chronic pain syndrome and on narcotics. Her pain and sedation have been controlled with fentanyl. Her hemodynamics have not been labile in the last 12 to 18 hours. Enteral feeds to be continued Daughter who is the medical power of attorney law clerk and granddaughter were updated at bedside. Plans for the next 24 hours were discussed. 10.15.19: Patient has significant mucosal bleeding. Have stopped heparin and will continue antibiotics. The amount of mucosal bleeding prohibited a more extensive evaluation. Plan is to increase steroids stop any anticoagulation and reevaluate in 24 to 48 hours. I am concerned that she has a malignancy. There does not appear to be any evidence of diffuse alveolar hemorrhage. 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 There are still trying to determine the treatment regimen that she received however it is noted that she did not have surgery Family updated at beds[facility] Critical Time Critical Time (minutes): 70 Level of Care: ICU Anticipated discharge: Víctor David Within: Other - Today -: 1. The care of a critical patient is a dynamic process. This note is a benefits representative synopsis but static in nature. The timeframe for treatments given in order is not necessary the actual time these treatments may have been done. 2. This patient requires critical care secondary to ongoing requirements for therapy not offered or safe outside the critical care environment. Transfer to a lower level of care with altered life or limb morbidity and mortality. 3. Multidisciplinary rounds completed. 4. ABCDE bundle addressed. 5. MPOA: Yen, daughter. Full Code
--- NOTE | 2019-10-17 11:57 | PDOC TRANSFER SUMMARY ---
General Admission Date/PCP: 10/13/19 16:56 MELLO MIRAMONTES Resuscitation Status: Full Code - Transfer Diagnosis (1) Acute respiratory failure with hypoxia Is this a current diagnosis for this admission?: Yes (2) Bilateral pulmonary infiltrates on CXR Is this a current diagnosis for this admission?: Yes (3) Hx of bronchogenic malignancy Is this a current diagnosis for this admission?: Yes (4) Atypical pneumonia Is this a current diagnosis for this admission?: Yes (5) Segmental bullous emphysema Is this a current diagnosis for this admission?: Yes (6) Major hemoptysis Is this a current diagnosis for this admission?: Yes (7) Sacral decubitus ulcer, stage III Is this a current diagnosis for this admission?: Yes Diagnosis Summary: Present on admission. Patient was found lying on floor at home - Transfer Medications Home Medications: Albuterol Sulfate [Proair HFA Inhalation Aerosol 8.5 gm MDI] 2 puff IH Q4HP PRN 10/06/19 Albuterol Sulfate [Ventolin 0.083% Neb 2.5 mg/3 mL Ampul] 1 vial NEB Q6HP PRN 10/06/19 Budesonide/Formoterol Fumarate [Symbicort HFA 160-4.5 mcg Inhaler 6 gm] 2 puff IH Q12 10/06/19 Cholecalciferol (Vitamin D3) [Vitamin D3 3000 unit Tablet] 3,000 unit PO DAILY 10/06/19 Dexlansoprazole [Dexilant 60 mg Capsule] 60 mg PO DAILY 10/06/19 Furosemide [Lasix 20 mg Tablet] 20 mg PO QAM 10/06/19 Hydrocodone Bit/Acetaminophen [Hydrocodon-Acetaminophn 10-325] 1 tab PO DAILYP PRN 10/06/19 Levothyroxine Sodium 75 mcg PO DAILY 10/06/19 Losartan Potassium [Cozaar 100 mg Tablet] 100 mg PO DAILY 10/06/19 Meloxicam [Mobic] 15 mg PO DAILY 10/06/19 Multivitamin [One-Daily Multi-Vitamin] 1 tab PO DAILY 10/06/19 Ondansetron HCl [Zofran 8 mg Tablet] 8 mg PO DAILYP PRN 10/06/19 Tiotropium [place] [Spiriva Respimat] 2 puff IH DAILY 10/06/19 Transfer Medications: Current Medications Acetaminophen (Tylenol 325 Mg Tablet) 650 mg PO Q4HP PRN PRN Reason: pain or temp greater than 101F Stop: 11/12/19 18:01 Albuterol (Ventolin 0.083% Neb 2.5 Mg/3 Ml Ampul) 2.5 mg NEB RTQ4HP PRN PRN Reason: SHORTNESS OF BREATH Stop: 11/12/19 18:01 Albuterol/Ipratropium (Duoneb 3 Ml Ampul) 3 ml NEB RTQ6 [facility] Stop: 11/12/19 19:59 Last Admin: 10/17/19 08:29 Dose: 3 ml Documented by: Amlodipine Besylate (Norvasc 10 Mg Tablet) 10 mg PO DAILY [facility] Stop: 11/13/19 09:59 Last Admin: 10/17/19 10:06 Dose: 10 mg Documented by: Famotidine (Pepcid 20 Mg Tablet) 20 mg PO Q12 [facility] Stop: 11/14/19 09:59 Last Admin: 10/17/19 10:06 Dose: 20 mg Documented by: Gabapentin (Neurontin 100 Mg Capsule) 100 mg PO Q8 [facility] Stop: 11/14/19 09:59 Last Admin: 10/17/19 05:18 Dose: 100 mg Documented by: Hydralazine HCl (Apresoline Inj/Pf 20 Mg/1 Ml Sdv) 10 mg IV Q4HP PRN PRN Reason: SBP>180, DBP>100 Stop: 11/13/19 15:12 Linezolid (Zyvox Rtu 600 Mg/300 Ml Premixed) 600 mg in 300 mls @ 300 mls/hr IV Q12 [facility] Stop: 10/20/19 21:59 Last Infusion: 10/17/19 11:13 Dose: Infused Documented by: Meropenem 500 mg/ Sodium (Chloride) 50 mls @ 100 mls/hr IV Q12 [facility] Stop: 10/20/19 21:59 Last Infusion: 10/17/19 10:35 Dose: Infused Documented by: Azithromycin 500 mg/ Dextrose 250 mls @ 250 mls/hr IV DAILY [facility] Stop: 10/21/19 17:59 Last Admin: 10/17/19 10:49 Dose: 250 mls/hr, 250 mls/hr Documented by: Fentanyl Citrate (Sublimaze Senior [employer]/Pf 600 Mcg/60 Ml Rtu Vial) 600 mcg in 60 mls @ 0 mls/hr IV ASDIR PRN; Protocol PRN Reason: THIS MED IS NOT "PRN" Stop: 10/21/19 20:15 Last Admin: 10/17/19 11:24 Dose: 5 mls/hr Documented by: Lactated Ringer's (Lactated Ringers 1000 Ml Iv Soln) 1,000 mls @ 50 mls/hr IV CONTINUOUS PRN PRN Reason: THIS MED IS NOT "PRN" Stop: 11/13/19 18:35 Last Admin: 10/16/19 21:51 Dose: 50 mls/hr Documented by: Levothyroxine Sodium (Synthroid 0.075 Mg Tablet) 0.075 mg PO Q6AM [facility] Stop: 11/13/19 05:59 Last Admin: 10/17/19 05:18 Dose: 0.075 mg Documented by: Losartan Potassium (Cozaar 50 Mg Tablet) 100 mg PO DAILY [facility] Stop: 11/13/19 09:59 Last Admin: 10/17/19 10:07 Dose: 100 mg Documented by: Methylprednisolone Sodium Succinate (Solu-Medrol Inj/Pf 125 Mg/2 Ml Sdv) 80 mg IV Q12 [facility] Stop: 11/14/19 15:29 Last Admin: 10/17/19 10:08 Dose: 80 mg Documented by: Multi-Ingredient Cream (Lacri-Lube S.O.P. Ointment 3.5 Gm) 1 applic OU Q8 [facility] Stop: 11/13/19 21:59 Last Admin: 10/17/19 05:18 Dose: 1 applic Documented by: Sodium Chloride (Saline Flush 2.5 Ml Monoject Prefil Syrin) 2.5 ml IV Q8 [facility] Stop: 11/12/19 21:59 Last Admin: 10/17/19 05:18 Dose: Not Given Documented by: Sodium Chloride (Nacl 0.9% Inj/Pf 10 Ml Sdv) 10 ml IV .AFTER EACH USE PRN PRN Reason: AFTER EACH INTERMITTENT USE Stop: 11/14/19 08:08 - Allergies Allergies/Adverse Reactions: Penicillins Allergy (Severe, Verified 10/13/19 17:57) RESP DISTRESS vancomycin [Vancomycin] Allergy (Severe, Verified 10/13/19 17:57) SEVERE ITCHING - Diet/Activity Discharge Diet: Tube Feeding (Comments) - Vital 1.5 at 35 ml/hr Discharge Activity: Bedrest Hospital Course Hospital Course: 79-year-old female with a history of 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 Please seen in the emergency room she had hypoxia and a alveolar interstitial pattern on chest x-ray. She had been discharged from the hospital after being admitted for 5 days for what appeared to be pneumonia. Was transferred to the floor on high flow oxygen and had been somewhat stable but had noted blood in her cough. There is some history of mild blood in her cough prior to her second admission. Respiratory status appears to be worsening and a CT scan was done which showed a mixed consolidated interstitial alveolar pattern. A call was placed to critical care and we accepted the patient for transfer to the ICU. On transfer, she appeared to be tiring on BiPAP and she was electively intubated without difficulty. Notably there was no mucosal injury nor was her difficult intubation. She had some mild hemodynamic instability and a central line was placed. This quickly cleared and may have been related to sedation. Her mucosa was notably dry he responded to volume resuscitation. There was blood noted in her ET tube during suctioning. On October 15 a bronchoscopy was done which showed extensive mucosal irritation with bleeding. It was difficult to know where the blood was emanating from but the suspicion was the right upper lobe. There was a extensive spillover effect and layering effect in the distal trachea. The atypical findings on CAT scan and concern for blood aspiration and/or secondary pneumonia she was started on broad-spectrum antibiotics including Linezolid for better lung penetration and coverage. She was also started on high-dose steroids because of the inflammatory changes. Studies to rule out diffuse alveolar hemorrhage were nonconclusive secondary to the extensive amount of bleeding especially in the right lobe. She was given 24 hours off anticoagulation for DVT prophylaxis and to allow for steroid effect. She underwent repeat evaluation of the upper airway under fiberoptic endoscopy through the both nares and through the mouth to assure that the bleeding was not coming from the more cephalad portions of her air way system. This was negative for any bleeding. After this a repeat bronchoscopy was done which showed bleeding coming from the right upper lobe. The mucosa was extremely inflamed thinned and anatomy was distorted. Notably patient's right upper lobe was the affected lobe for her bronchogenic carcinoma and our concern was that this was a recurrence. Patient was hemodynamically stable in the last 24 hours. Hemoglobin and hematocrit have been slowly decreasing but patient has not required any trans fusions. Physical Exam Vital Signs: Temp Pulse Resp BP Pulse Ox 98.2 F 51 L 14 113/41 L 96 10/17/19 10:00 10/17/19 08:40 10/17/19 10:00 10/16/19 14:00 10/17/19 10:00 Pulse Oximeter Continuous Start: 10/13/19 18:04 Freq: RTQ4 Status: Complete Protocol: Document 10/14/19 11:34 [facility] (Rec: 10/14/19 11:35 [facility] [id number]) Pulse Oximetry Assessment Oxygen Saturation (92-100) 100 Oxygen Delivery Method Bi-pap Fraction of Inspired Oxygen (FIO2) 60 Equipment Usage Equipment in Use Continuous SpO2 Machine # [id number] Intake & Output 10/16/19 10/17/19 10/18/19 06:59 06:59 06:59 Intake Total 3477 3527 350 Output Total 785 936 145 Balance 2692 2591 205 Weight 71.3 kg 75.2 kg Exam: Please see today's progress notes Results Laboratory Results: 10/17/19 03:45 10/17/19 03:45 10/17/19 10/17/19 10/17/19 03:45 03:45 03:45 WBC 18.9 H RBC 2.50 L Hgb 7.7 L Hct 23.3 L MCV 93 MCH 30.8 MCHC 33.1 RDW 16.3 H Plt Count 199 Seg Neutrophils % Not Reportable Carbonic Acid 1.11 HCO3/H2CO3 Ratio 19:1 ABG pH 7.38 ABG pCO2 36.8 ABG pO2 70.8 L ABG HCO3 21.2 ABG O2 Saturation 94.1 ABG Base Excess -3.6 FiO2 40% Sodium 135.3 L Potassium 4.4 Chloride 106 Carbon Dioxide 23 Anion Gap 6 BUN 45 H Creatinine 0.91 Est GFR ( Amer) > 60 Glucose 162 H Serum Osmolality Calcium 10.0 Ionized Calcium [place] Phosphorus 3.8 Magnesium 2.2 Total Bilirubin 0.5 AST 47 H Alkaline Phosphatase 69 Total Protein 4.8 L Albumin 2.5 L PTH Intact Urine Osmolality Blood Type Antibody Screen 10/17/19 10/17/19 10/17/19 06:11 08:14 08:14 WBC RBC Hgb Hct MCV MCH MCHC RDW Plt Count Seg Neutrophils % Carbonic Acid HCO3/H2CO3 Ratio ABG pH ABG pCO2 ABG pO2 ABG HCO3 ABG O2 Saturation ABG Base Excess FiO2 Sodium Potassium Chloride Carbon Dioxide Anion Gap BUN Creatinine Est GFR ( Amer) Glucose Serum Osmolality 302 H Calcium Ionized Calcium [place] Phosphorus Magnesium Total Bilirubin AST Alkaline Phosphatase Total Protein Albumin PTH Intact Urine Osmolality 575 Blood Type O POSITIVE Antibody Screen POSITIVE 10/17/19 10/17/19 08:14 08:14 WBC RBC Hgb Hct MCV MCH MCHC RDW Plt Count Seg Neutrophils % Carbonic Acid HCO3/H2CO3 Ratio ABG pH ABG pCO2 ABG pO2 ABG HCO3 ABG O2 Saturation ABG Base Excess FiO2 Sodium Potassium Chloride Carbon Dioxide Anion Gap BUN Creatinine Est GFR ( Amer) Glucose Serum Osmolality Calcium Ionized Calcium [place] 1.37 H Phosphorus Magnesium Total Bilirubin AST Alkaline Phosphatase Total Protein Albumin PTH Intact 31.0 Urine Osmolality Blood Type Antibody Screen 10/15/19 11:30 Bronchial Washings AFB Smear Concentration - Final 10/15/19 11:30 Bronchial Washings Acid Fast Bacilli Smear - Final 10/13/19 20:50 Sputum Gram Stain - Final 10/13/19 20:50 Sputum Sputum Culture - Final Yeast, Not Ofelia Albicans Normal Maame 10/13/19 10/14/19 13:25 19:58 Creatine Kinase 503 H NT-Pro-B Natriuret Pep 3020 H Impressions: Cervical Spine CT 10/13/19 13:38 IMPRESSION: No acute fracture or malalignment of the cervical spine. Other degenerative findings as detailed above. Head CT 10/13/19 13:38 IMPRESSION: No acute intracranial abnormality. EVIDENCE OF ACUTE STROKE: NO. Chest CT 10/14/19 00:00 IMPRESSION: Extensive centrilobular emphysema. Extensive airspace disease in both lungs as described. This appears relatively stable. Chest X-Ray 10/17/19 06:00 IMPRESSION: Slight improvement. No pneumothorax. Status: Image reviewed by me Plan Discharge Plan: To be transferred to [facility] for interventional radiology and pulmonary and oncology support. Time Spent: Greater than 30 Minutes
[2019-10-17 14:09] VITALS: BP 94/43
--- NOTE | 2019-10-18 15:19 | Progress Note ---
Provider Note Provider Note: Call from Dr. Guerra in pathology. BAL suggestive of cancer cells which we know. She has been transferred for further care.
[2019-10-18 18:36] LABS: ANTIMYELOPEROXIDASE (MPO) AB <9.0 U/mL (0.0-9.0); CYTOPLASMIC (C-ANCA) <1:20 titer (Neg:<1:20)
[2019-10-19 07:06] LABS: ATYPICAL PANCA <1:20 titer (Neg:<1:20)
== END 2019-10-17 14:30 | disposition short-term general hospital (02) | DRG 208 ==
LOC: ER 13:20 → EH 16:56 → 3S 18:51 → ICU 10-14 18:17
PROVIDERS: ADMIT Internal Medicine Critical Care Medicine; ATTEND Internal Medicine Critical Care Medicine
PROC: 5A09357 Assistance with Respiratory Ventilation, Less than 24 Consecutive Hours, Continuous Positive Airway Pressure (ICD-10-PCS; 2019-10-13)
PROC: 5A1945Z Respiratory Ventilation, 24-96 Consecutive Hours (ICD-10-PCS; principal; 2019-10-14)
PROC: 0CJY8ZZ Inspection of Mouth and Throat, Via Natural or Artificial Opening Endoscopic (ICD-10-PCS; 2019-10-14)
PROC: 0BJ08ZZ Inspection of Tracheobronchial Tree, Via Natural or Artificial Opening Endoscopic (ICD-10-PCS; 2019-10-14)
PROC: 03HC33Z Insertion of Infusion Device into Left Radial Artery, Percutaneous Approach (ICD-10-PCS; 2019-10-14)
PROC: 02HV33Z Insertion of Infusion Device into Superior Vena Cava, Percutaneous Approach (ICD-10-PCS; 2019-10-14)
PROC: 0BH17EZ Insertion of Endotracheal Airway into Trachea, Via Natural or Artificial Opening (ICD-10-PCS; 2019-10-14)
PROC: 0B9H8ZX Drainage of Lung Lingula, Via Natural or Artificial Opening Endoscopic, Diagnostic (ICD-10-PCS; 2019-10-15)
PROC: 0B9G8ZX Drainage of Left Upper Lung Lobe, Via Natural or Artificial Opening Endoscopic, Diagnostic (ICD-10-PCS; 2019-10-15)
PROC: 0B9D8ZX Drainage of Right Middle Lung Lobe, Via Natural or Artificial Opening Endoscopic, Diagnostic (ICD-10-PCS; 2019-10-15)
DX: C34.2 Malignant neoplasm of middle lobe, bronchus or lung (principal); J18.9 Pneumonia, unspecified organism; L89.153 Pressure ulcer of sacral region, stage 3; J96.21 Acute and chronic respiratory failure with hypoxia; N17.9 Acute kidney failure, unspecified; F11.20 Opioid dependence, uncomplicated; G93.40 Encephalopathy, unspecified; R04.2 Hemoptysis; E87.1 Hypo-osmolality and hyponatremia; F41.9 Anxiety disorder, unspecified; I10 Essential (primary) hypertension; E11.9 Type 2 diabetes mellitus without complications; K21.9 Gastro-esophageal reflux disease without esophagitis; M19.90 Unspecified osteoarthritis, unspecified site; J43.9 Emphysema, unspecified; E03.9 Hypothyroidism, unspecified; E83.52 Hypercalcemia; G89.29 Other chronic pain; Z88.0 Allergy status to penicillin; Z90.49 Acquired absence of other specified parts of digestive tract; Z79.51 Long term (current) use of inhaled steroids; Z90.710 Acquired absence of both cervix and uterus; Z79.899 Other long term (current) drug therapy; Z87.891 Personal history of nicotine dependence; Z88.1 Allergy status to other antibiotic agents; D64.9 Anemia, unspecified; Z85.118 Personal history of other malignant neoplasm of bronchus and lung
CPT/HCPCS: 36415; 36600; 51702; 70450; 71045; 71260; 72125; 80048; 80053; 81001; 82140; 82330; 82550; 82803; 82962; 83516; 83605; 83735; 83880; 83930; 83935; 83970; 84100; 84133; 84300; 84478; 85025; 85027; 85610; 85652; 85730; 86140; 86256; 86850; 86870; 86900; 86901; 86902; 87015; 87040; 87070; 87086; 87088; 87101; 87116; 87186; 87205; 87206; 87486; 87804; 88305; 89050; 93005; 93010; 94002; 94003; 94640; 94660; 94667; 94668; 94762; 96365; 99285; A4315; A4649; J0456; J1644; J1956; J2020; J2185; J2250; J2704; J2920; J2930; J3010; J3490; J7030; J7060; J7120; J7620; P9041